=== PATIENT | female | born 1955 | race Caucasian/White ===

== ENCOUNTER → 2017-07-03 11:07 | Outpatient (CLI) | payer OTHER, SELFPAY ==
[2017-07-03 12:12] LABS: Vitamin D,25 Hydroxy 44.2 ng/mL (29.95-100.01)
== END ==
PROVIDERS: Family Provider Internal Medicine; PCP Internal Medicine; Visit Provider Internal Medicine
DX: M81.0 Age-related osteoporosis without current pathological fracture (principal)
CPT/HCPCS: 36415; 82306

== ENCOUNTER → 2017-08-02 08:34 | Outpatient (CLI) | payer OTHER, SELFPAY ==
--- NOTE | 2017-08-02 08:36 | BI_ITS ---
MAMMOGRAPHY - BILATERAL SCREENING REASON FOR EXAM: Female, 61 years old. Routine annual screening examination. PERTINENT HISTORY: NO FAM HX - NO PREV SURG' S- BILAT SKIN TAGS /MOLES MAREKD - RT LARGE SKIN TAG MARKED ON 2NDRTCC of 1 cm the TECHNIQUE: Digital bilateral breast nacho (3D mammographic acquisition) in the CC and MLO projections. 2-D mediolateral oblique (MLO) and craniocaudad (CC) views of both breasts were obtained. CAD: Full Field Digital Mammography with Computer Added Detection was performed. COMPARISON: None. FINDINGS: Breast Composition: The breasts are heterogeneously dense, which may obscure small masses. There is a cluster of microcalcification in the upper outer quadrant of the right for which further evaluation by magnification views and ultrasound would be recommended. No other significant abnormalities are identified. BI/SCREENING MAMM (CAD), BILAT IMPRESSION: Further imaging evaluation recommended, as described above. (E) ASSESSMENT CATEGORY: BIRADS Category 0: Incomplete. Need additional imaging evaluation. A letter regarding these results will be sent to the patient by the facility within 30 days. Approximately 10% of breast cancers are not detected by mammography. A normal mammogram should not delay biopsy of a clinically suspicious abnormality. [id number] Electronically Signed: Sherri Adams MD at 9:22 EDT Tel , Service support ,
--- NOTE | 2017-08-02 08:36 | BD_ITS ---
STUDY: DUAL ENERGY X-RAY ABSORPTIOMETRY / DXA REASON FOR EXAM: Female, 61 years old. Bone density screening in a postmenopausal patient TECHNIQUE: Bone Mineral Density (BMD) measurements of lumbar spine and bilateral hips were obtained. COMPARISON: None. FINDINGS: Lumbar Spine (L1-L4): g/cm2 (0.908) / T-score (-2.3) / Z-score (-0.8) Findings are suggestive of osteopenia with a moderate fracture risk. Left Femur Total: g/cm2 (0.809) / T-score (-1.6) / Z-score (-0.5) Left Femoral Neck: g/cm2 (0.731) / T-score (-2.2) / Z-score (-0.8) Right Femur Total: g/cm2 (0.780) / T-score (-1.8) / Z-score (-0.7) Right Femoral Neck: g/cm2 (0.689) / T-score (-2.5) / Z-score (-1.1) BD/Dexa Bone Density Study IMPRESSION: The patient is considered osteoporotic as outlined below according to World [place] Organization (WHO) criteria with a high fracture risk. Reference Information: The T-score is the number of standard deviations above or below the standard which is normal for young adults at their peak bone mineral density. The World Health Organization (WHO) interprets the T-scores as follows: Above -1 Normal bone density Between -1 and -2.5 Osteopenia Equal to / or below -2.5 Osteoporosis As a practical clinical guideline, osteopenia may be graded as follows: Mild -1 through -1.5 Moderate -1.6 through -2.0 Severe -2.1 through -2.4 The Z-score is the number of standard deviations above or below age-matched controls. A Z-score of less than -1.5 would be considered abnormal. References: 1. NIH Osteoporosis and Related Bone Diseases http://www.osteo.org 2. International Society for Clinical Densitometry http://www.iscd.org 3. National Osteoporosis Foundation http://www.nof.org Electronically Signed: Adriana Castro MD at 9:03 EDT , Service support ,
== END ==
PROVIDERS: Family Provider Internal Medicine; PCP Internal Medicine; Visit Provider Obstetrics & Gynecology
DX: Z12.31 Encounter for screening mammogram for malignant neoplasm of breast (principal); M81.0 Age-related osteoporosis without current pathological fracture; Z78.0 Asymptomatic menopausal state
CPT/HCPCS: 77063; 77067; 77080

== ENCOUNTER → 2017-08-15 14:36 | Outpatient (CLI) | payer OTHER, SELFPAY ==
--- NOTE | 2017-08-15 14:41 | BI_ITS ---
MAMMOGRAPHY - UNILATERAL DIAGNOSTIC: RIGHT BREAST REASON FOR EXAM: Female, 61 years old. Abnormal screening mammogram. Microcalcifications. PERTINENT HISTORY: Non-contributory. TECHNIQUE: Compression magnification views of the right breast were obtained in the mediolateral oblique and craniocaudad views. 90 degree lateral was obtained as well. CAD: Full Field Digital Mammography with Computer Added Detection was performed. COMPARISON: Comparison is made with prior mammogram dated August 02, 2017. FINDINGS: Breast Composition: The breasts are heterogeneously dense, which may obscure small masses. The cluster microcalcification persists in the upper outer quadrant of the breast. A biopsy is recommended. No other significant abnormalities are identified. BI/DIAG MAMM W/CAD, UNILAT IMPRESSION: Persistent cluster microcalcification in the upper outer aspect of the right breast as described. Correlation with the biopsy is recommended. ASSESSMENT CATEGORY: BIRADS Category 4: Suspicious - Biopsy Should Be Considered. A letter regarding these results will be sent to the patient by the facility within 30 days. Approximately 10% of breast cancers are not detected by mammography. A normal mammogram should not delay biopsy of a clinically suspicious abnormality. Electronically Signed: Alexandro Ghosh MD at 8:07 EDT Tel [phone], Service support ,
== END ==
PROVIDERS: Family Provider Internal Medicine; PCP Internal Medicine; Visit Provider Obstetrics & Gynecology
DX: R92.8 Other abnormal and inconclusive findings on diagnostic imaging of breast (principal)
CPT/HCPCS: 77065

== ENCOUNTER → 2017-08-25 07:34 | Outpatient (CLI) | payer OTHER, SELFPAY ==
--- NOTE | 2017-08-25 | BRBX_PTH ---
PATIENT: MIRIAM MARIO LOC: [facility] U#:[id number] AGE/SX: 69/F ROOM: RE08/25/[address]: Dr. Stacy Mendes MD : 1955 BED: DIS: SPEC #: [id number] RECD: 08/25/17 11:28 STATUS: AYDIN WASHINGTONUmesh #: [id number] NOMI: 08/25/17 00:[address]: Stacy Mendes DEPT: SURGICAL PATHOLOGY RECD BY: Gaston Crespo ENTERED: 08/25/17 11:29 SP TYPE: BREAST BX OTHR DR: Dr. Aissatou Hu MD Tissues: Right breast, NOS Procedures: Surgery Specimen Level IV HEADER OPERATION: Right breast stereotactic needle core biopsy PRE-OP DIAGNOSIS: Right UOQ calcifications TISSUE SUBMITTED: Right breast ISCHEMIC TIME: 2 minutes FIXATION TIME: 60 hours MICROSCOPIC DIAGNOSIS Right breast, upper outer quadrant microcalcification, stereotactic needle core biopsy: Fibrocystic changes, adenosis and intraductal hyperplasia without atypia. Frequent microcalcifications. Negative for malignancy. DORYS:mallory 08/28/17 COMMENT Correlation with clinical, radiologic findings and appropriate follow up are necessary. Case has been reviewed in consultation with Dr. Fernandes who concurs with the above diagnosis. IDC:AM MICROSCOPIC DESCRIPTION Slides are reviewed. GROSS DESCRIPTION Received in fixative is one container labeled with the patient's name and designated right breast. The specimen consists of multiple elongated fragments of goel-yellow fibroadipose tissue that in aggregate measure 5 x 3 x 0.3 cm. The entire specimen is submitted in two cassettes. / DORYS:mallory 08/25/17 TC:5 CPT: 87602
--- NOTE | 2017-08-25 08:54 | PCM.OP.BLANK ---
Operative Report Date of Procedure: 08/25/17 rocedure: Stereotactic core biopsy Indications: 61 year-old female with cluster of microcalcifications in the deep lateral portion of the right breast. Risk benefits were discussed the patient and she elected to proceed with stereotactic core biopsy with clip placement Description of procedure: Patient was brought into the mammography suite and laid prone on the stereotactic table. A timeout was completed verifying correct patient, procedure, site, specially, prior to beginning procedure. The right breast was prepped and draped in usual sterile fashion and using local anesthesia was obtained with 1% lidocaine with epi. Patient's right breast was positioned and placed into compression. Initial film showed calcifications are in the center of the compression paddle. 15? views were then taken. The calcifications were localized. The left breast was prepped draped in usual sterile fashion. An 8-gauge mammotome was set up according to the digital coordinates. The tract of the mammotome was anesthetized with local anesthesia and an incision was made with the 11 blade scalpel at the entry site. The mammotome was advanced to the prefire state. Pre-prior films were checked and verified. The mammotome was fired. Post fire films were also checked and verified. Biopsies were taken from 8:00 to 12:00. The specimen was x-rayed and all the calcifications were within the specimen. Mammotome clip was placed at the 12 o'clock position. The mammotome was removed from the breast. An additional films were taken which showed all calcifications were removed and a clip was in place. Pressure was held for hemostasis. Once hemostasis was assured the wound was dressed with Steri-Strips and OpSite. The patient tolerated the procedure well and was discharged from the mammography suite good condition. complications: none
== END ==
PROVIDERS: Family Provider Internal Medicine; PCP Internal Medicine; Visit Provider Surgery
DX: N60.21 Fibroadenosis of right breast (principal); N60.91 Unspecified benign mammary dysplasia of right breast
CPT/HCPCS: 19081; 88305; J7050; A4648

== ENCOUNTER → 2017-12-18 16:20 | Outpatient (CLI) | payer OTHER, SELFPAY ==
[2017-12-18 18:49] LABS: T4 Free Direct 0.99 ng/dL (0.76-1.46)
== END ==
PROVIDERS: Family Provider Internal Medicine; PCP Internal Medicine; Visit Provider Internal Medicine
DX: G47.10 Hypersomnia, unspecified (principal)
CPT/HCPCS: 36415; 84439; 84443

== ENCOUNTER → 2017-12-19 10:38 | Outpatient (CLI) | payer OTHER, SELFPAY ==
[2017-12-19 10:42] LABS: Bacteria 0 SEEN /hpf (None Seen)
[2017-12-19 10:48] LABS: Color, Urine Yellow (Yellow); Glucose, Dipstick Normal (Normal); Ketone-Dipstick Negative (Negative); Leukocyte Esterase-Dipstick 500 /ul (Negative); Nitrite-Dipstick Negative (Negative); Occult Blood-Urine 10 /ul (Negative); Protein-Dipstick 15 mg/dl (Negative); Urine Bilirubin Dipstick Negative (Negative); Urine Clarity Sl. Cloudy (Clear); Urine Urobilinogen Normal (Normal)
[2017-12-19 10:58] LABS: Mucous, Urine RARE /hpf (<or=2+); Red Blood Cells-Urine 0-5 SEEN /hpf (0-5); Squamous Epithelial Cells - UA 0-5 SEEN /hpf (5-10); White Blood Cells 5-10 SEEN /hpf (0-5)
== END ==
PROVIDERS: Family Provider Internal Medicine; PCP Internal Medicine; Visit Provider Internal Medicine
DX: N39.0 Urinary tract infection, site not specified (principal)
CPT/HCPCS: 81001; 87086; 87088

== ENCOUNTER 2017-12-21 20:03 | Emergency (ER) | payer OTHER, SELFPAY ==
[2017-12-21 20:05] VITALS: BP 157/81; PULSE 113; RESP 16; TEMP 36.3; O2SAT 98; BMI 28.0
--- NOTE | 2017-12-21 20:23 | CT_ITS ---
STUDY: CT ABDOMEN AND PELVIS WITHOUT CONTRAST REASON FOR EXAM: Female, 62 years old. No abdominal pain, right flank pain. RADIATION DOSAGE (If Supplied By Facility): CTDIvol = ( 8.76 ) mGy, DLP = ( 426.97 ) mGycm TECHNIQUE: Transaxial images were obtained from the dome of the diaphragm to the symphysis pubis without oral contrast, and without intravenous contrast. Sagittal and coronal images were reconstructed. Individualized dose optimization techniques were used for this CT. COMPARISON: None. FINDINGS: The visualized lung bases are unremarkable. The visualized portions of the heart are within normal limits. Normal liver. There are surgical clips in the gallbladder fossa consistent with a prior cholecystectomy. Normal spleen. Normal pancreas. Normal bilateral adrenal glands. There is a 4 mm nonobstructing stone in the left kidney. The left kidney is otherwise unremarkable. There is no hydronephrosis. There is mild hydronephrosis on the right. There is mild distention of the right ureter. There is a 5 x 5 mm stone in the right distal ureter. The aorta is normal in caliber. There is no free fluid, free air, or organized collection. There is no bowel obstruction or inflammatory change. The appendix is surgically absent. The bladder is partially distended and grossly unremarkable. Normal abdominal wall. Normal osseous structures. CT/Abdomen/Pelvis without Cont IMPRESSION: 1. A 5 mm stone in the right distal ureter, with mild proximal hydroureteronephrosis. 2. Nonobstructing left renal stone. Electronically Signed: Dona Courtney MD at 21:26 EDT Tel , Service support ,
[2017-12-21] MEDS: 0.9% Normal Saline 1,000 ML 250 ML IV (20:41)
[2017-12-21] MEDS: Ketorolac 30 MG/ML Syringe 15 MG IV (20:41)
[2017-12-21] MEDS: Ondansetron 4 MG/2 ML Vial IV (20:41)
[2017-12-21 20:52] LABS: Mucous, Urine 0 SEEN /hpf (<or=2+)
[2017-12-21 20:54] LABS: Glucose, Dipstick Normal (Normal); Ketone-Dipstick Negative (Negative); Leukocyte Esterase-Dipstick 100 /ul (Negative); Nitrite-Dipstick Positive (Negative); Occult Blood-Urine 10 /ul (Negative); Protein-Dipstick 30 mg/dl (Negative); Urine Clarity Sl. Cloudy (Clear); Urine Urobilinogen 12 mg/dl (Normal)
[2017-12-21 20:59] LABS: Color, Urine SEE COMMENT BELOW (Yellow); Urine Bilirubin Dipstick 6 mg/dL (Negative)
[2017-12-21 21:01] LABS: Absolute Lymphocyte Count 2.24 X10^3/ul (0.83-4.51); Absolute Neutrophil Count 4.3 X10^3/uL (2.0-7.7); Basophil# 0.03 X10^3/uL; Basophil% 0.4 % (0-1); Eosinophil# 0.13 X10^3/uL; Eosinophils% 1.8 % (0-5); Hematocrit 40.3 % (37-47); Hemoglobin 13.1 g/dl (12.0-15.0); Lymphocyte # 2.24 X10^3/ul (4.0); Lymphocyte % 30.7 % (19-41); Mean Corp Hgb Conc 32.5 g/gl (32-36); Mean Corpuscular Hgb 29.9 pg (27.0-32.0); Mean Platelet Vol. 10.3 fl (6.2-12.0); Monocyte# 0.55 X10^3/uL; Monocyte% 7.5 % (0-10); Neutrophil # 4.34 X10^3/uL (2.7-7.7); Neutrophil % 59.5 % (47-70); POSITIVE COUNT NO; POSITIVE DIFFERENTIAL NO; POSITIVE MORPHOLOGY NO; Platelet Count 311 K/mm3 (150-450); RBC Distribution Width CV 13.8 % (11.6-14.6); RBC Distribution Width SD 46.4 fl (35.1-43.9); Red Blood Count 4.38 M/mm3 (4.2-5.4); White Blood Count 7.3 K/mm3 (4.4-11.0)
[2017-12-21 21:01] LABS: Bacteria RARE /hpf (None Seen); Red Blood Cells-Urine 0-5 SEEN /hpf (0-5); Squamous Epithelial Cells - UA 0-5 SEEN /hpf (5-10); White Blood Cells 10-25 SEEN /hpf (0-5)
[2017-12-21 21:11] LABS: Anion Gap 10 (5-15); BUN 18 mg/dL (7-18); BUN/Creat Ratio 18.2 RATIO (10-20); Calcium,Total 9.3 mg/dL (8.5-10.1); Chloride 104 mmol/L (98-107); Creatinine, Serum 0.99 mg/dL (0.55-1.02); EST Glomerular Filtration Rate 60 mL/min (>60); Est Glom Filt Rate - Afr Amer 73 mL/min (>60); Glucose 115 mg/dL (74-106); Potassium 2.5 mmol/L (3.5-5.1); Sodium Level 142 mmol/L (136-145)
--- NOTE | 2017-12-21 21:11 | ED.RN ---
DR JOHNSON AWARE OF k+ 2.5.
--- NOTE | 2017-12-21 22:49 | ED.DCSUM_ITS ---
- ER Visit Summary Date of Service: 12/21/17 Chief Complaint: Right flank pain, abdominal pain and pain in the perineum History of Present Illness: The patient is a 62 F who presents with waxing and waning pain right side of the abdomen, flank and perineum past several days. Patient states she was placed on Augmentin by her PCP and treated with Flomax. She denies fever, chills night sweats. She denies any ocular, visual auditory symptoms. She denies any cardiovascular respiratory symptoms. She denies skin lesions or rash. She denies any hematologic or allergic symptoms. Physical Examination: On exam patient appears uncomfortable. Vital signs noted and remarkable and elevated blood pressure 137/81. Heart rate 113. She is not febrile. HEENT exam is unremarkable. Insert cardiopulmonary exam abdomen soft nontender. Bowel sounds present normal. There is no CVA tenderness noted. There is no evidence of inguinal hernia or inguinal lymphadenopathy. Lower extremity exam is normal. Neuro exam is nonfocal. Test Results: CT of the abdomen reveals a 5 mm right UVJ is stone with hydroureter and hydronephrosis. There is a left renal stone noted as well. White count normal. Electro panels marked for a potassium of 2.5. Urinalysis is positive for leukoesterase nitrites and blood of 110 respectively. There are 10-25 WBCs 0-5 RBCs with rare bacteria. Emergency Department Course and Treatment: CBC, BMP and UA were obtained as well as CT of the abdomen. Patient was treated with 15 mg of Toradol IV push and 4 mg of Zofran IV push. She was reassessed at 20-35. She is pain-free. Treatment Plan: Anti-inflammatory and opiate analgesia Disposition: Discharged to home Impression: Obstructing right UVJ stone with hydroureter and nephrosis Pyuria Hypokalemia History of hypertension This note was generated with [employer] dictation software. It may contain incorrect words, spelling, and punctuation that were not noted in review of the chart prior to signing ED Disposition - Plan for ED Patient: Disposition: Home or Assisted Living Chief Complaint: Abd Pain Instructions: ED Stone Renal W Colic, ED Potassium Deficiency, ED Diet High Potassium Prescriptions: Oxycodone HCl/Acetaminophen [Percocet 5/325] 1 tab PO Q6H PRN PRN 5 Days #20 tab PRN Reason: Pain Potassium Chl Soln 20 meq PO DAILY #120 udc Naproxen [Naprosyn] 500 mg PO BID #14 tab Referrals: Aissatou Hu MD [Primary Care Provider] - 5-7 Days Additional Instructions: Continue to take Augmentin until gone. You may discontinue the Flomax. Contact your doctor for repeat potassium in 1 week Take potassium supplement as instructed.
[2017-12-21 23:10] VITALS: BP 142/98; PULSE 84; PULSE 87; RESP 16; O2SAT 97; O2SAT 98
--- NOTE | 2017-12-22 18:00 | ED.RN ---
Pt called with request to change rx from liquid potassium to tablets. Dr Rosario changed rx.
== END 2017-12-21 23:12 | disposition home or self-care (01) ==
PROVIDERS: Emergency Provider Emergency Medicine; Family Provider Internal Medicine; PCP Internal Medicine
DX: N13.6 Pyonephrosis (principal); E87.6 Hypokalemia; I10 Essential (primary) hypertension; F32.9 Major depressive disorder, single episode, unspecified; Z79.899 Other long term (current) drug therapy; Z87.442 Personal history of urinary calculi
CPT/HCPCS: 74176; 80048; 81001; 85025; 96361; 96374; 96375; 99283; J7030; J2405

== ENCOUNTER → 2017-12-29 10:44 | Outpatient (CLI) | payer OTHER, SELFPAY ==
--- NOTE | 2017-12-29 11:22 | CT_ITS ---
STUDY: CT ABDOMEN AND PELVIS WITHOUT CONTRAST REASON FOR EXAM: Female, 62 years old. Right groin pain. History of stones. RADIATION DOSAGE (If Supplied By Facility): CTDIvol = ( 9.53 ) mGy, DLP = ( 466.65 ) mGycm TECHNIQUE: Transaxial images were obtained from the dome of the diaphragm to the symphysis pubis without oral contrast, and without intravenous contrast. Sagittal and coronal images were reconstructed. Individualized dose optimization techniques were used for this CT. COMPARISON: Comparison is made with prior study dated December 21, 2017. FINDINGS: The visualized lung bases are unremarkable. The visualized portions of the heart are within normal limits. Normal liver. There are surgical clips in the gallbladder fossa consistent with a prior cholecystectomy. Normal spleen. Normal pancreas. Normal bilateral adrenal glands. Punctate calcification in the posterior mid pole calyx of the right kidney. The previously seen right hydronephrosis has cleared. The previously seen 4 mm calculus in the distal portion of the left ureter is not present at this time. Nonobstructive calculus in the upper pole calyx of the left kidney. There is a small hiatal hernia. Normal small intestine. Normal colon. Prior appendectomy. There is scattered atherosclerotic calcification of the abdominal aorta, without a demonstrated aneurysm. Normal inferior vena cava. Normal retroperitoneum. Normal urinary bladder. There is absence of the uterus consistent with a prior hysterectomy. Normal abdominal wall. Disc space narrowing and degeneration at the L5-S1 level. CT/Abdomen/Pelvis without Cont IMPRESSION: No evidence of right-sided hydronephrosis. The previously seen 4 mm calculus in the distal portion of the right ureter is not seen at this. Electronically Signed: Alexandro Ghosh MD at 12:31 EDT Tel [phone], Service support ,
[2017-12-29 12:04] LABS: Anion Gap 11 (5-15); BUN 27 mg/dL (7-18); BUN/Creat Ratio 28.8 RATIO (10-20); Calcium,Total 9.3 mg/dL (8.5-10.1); Chloride 103 mmol/L (98-107); Creatinine, Serum 0.94 mg/dL (0.55-1.02); EST Glomerular Filtration Rate 64 mL/min (>60); Est Glom Filt Rate - Afr Amer 77 mL/min (>60); Glucose 103 mg/dL (74-106); Potassium 2.8 mmol/L (3.5-5.1); Sodium Level 141 mmol/L (136-145)
== END ==
PROVIDERS: Nurse Practitioner Family; Family Provider Internal Medicine; PCP Internal Medicine; Visit Provider Urology
DX: N20.0 Calculus of kidney (principal); E87.6 Hypokalemia
CPT/HCPCS: 74176; 80048

== ENCOUNTER → 2018-01-10 15:48 | Outpatient (CLI) | payer OTHER, SELFPAY ==
[2018-01-10 17:42] LABS: Anion Gap 6 (5-15); BUN 18 mg/dL (7-18); BUN/Creat Ratio 18.6 RATIO (10-20); Calcium,Total 9.5 mg/dL (8.5-10.1); Chloride 105 mmol/L (98-107); Creatinine, Serum 0.97 mg/dL (0.55-1.02); EST Glomerular Filtration Rate 62 mL/min (>60); Est Glom Filt Rate - Afr Amer 75 mL/min (>60); Glucose 100 mg/dL (74-106); Potassium 3.6 mmol/L (3.5-5.1); Sodium Level 141 mmol/L (136-145)
== END ==
PROVIDERS: Family Provider Internal Medicine; PCP Internal Medicine; Visit Provider Nurse Practitioner Family
DX: E87.6 Hypokalemia (principal)
CPT/HCPCS: 36415; 80048

== ENCOUNTER → 2018-01-30 11:14 | Outpatient (CLI) | payer OTHER, SELFPAY ==
[2018-01-30 14:14] LABS: Anion Gap 8 (5-15); BUN 20 mg/dL (7-18); BUN/Creat Ratio 23.3 RATIO (10-20); Calcium,Total 9.5 mg/dL (8.5-10.1); Chloride 105 mmol/L (98-107); Creatinine, Serum 0.86 mg/dL (0.55-1.02); EST Glomerular Filtration Rate 71 mL/min (>60); Est Glom Filt Rate - Afr Amer 85 mL/min (>60); Glucose 88 mg/dL (74-106); Potassium 3.5 mmol/L (3.5-5.1); Sodium Level 142 mmol/L (136-145)
== END ==
PROVIDERS: Family Provider Internal Medicine; PCP Internal Medicine; Referring Provider Nurse Practitioner Family; Visit Provider Nurse Practitioner Family
DX: E87.6 Hypokalemia (principal)
CPT/HCPCS: 36415; 80048

== ENCOUNTER → 2018-01-31 20:35 | Outpatient (CLI) | payer OTHER, SELFPAY | PROVIDERS: Family Provider Internal Medicine; PCP Internal Medicine; Visit Provider Internal Medicine | DX: G47.10 Hypersomnia, unspecified (principal) | CPT/HCPCS: 95810 ==

== ENCOUNTER → 2018-02-27 07:26 | Outpatient (CLI) | payer OTHER, SELFPAY ==
[2018-02-14 08:41] VITALS: BMI 28.1
--- NOTE | 2018-02-27 12:33 | PFT ---
INTRODUCTION: The patient is a 62-year-old female that presents for pulmonary function testing secondary to a diagnosis of dyspnea. Respiratory therapy reports good patient effort. Bronchodilators were used during testing. INTERPRETATION: Forced expiration spirometry demonstrates no evidence of a large airways obstructive ventilatory defect. There was no significant response to aerosolized bronchodilators. Spirograms are of good quality and plateau normally. Body plethysmography was performed and reveals lung volumes to be within normal limits. Diffusing capacity by single breath CO was also within normal limits at 85% of predicted. IMPRESSION: Grossly normal pulmonary function testing.
== END ==
PROVIDERS: Family Provider Internal Medicine; PCP Internal Medicine; Referring Provider Nurse Practitioner Acute Care; Visit Provider Nurse Practitioner Acute Care
DX: R06.09 Other forms of dyspnea (principal)
CPT/HCPCS: 94060; 94726; 94729

== ENCOUNTER → 2018-03-14 20:25 | Outpatient (CLI) | payer OTHER, SELFPAY | PROVIDERS: Family Provider Internal Medicine; PCP Internal Medicine; Visit Provider Nurse Practitioner Acute Care | DX: G47.33 Obstructive sleep apnea (adult) (pediatric) (principal) | CPT/HCPCS: 95811 ==

== ENCOUNTER → 2018-09-11 14:17 | Outpatient (CLI) | payer OTHER, SELFPAY ==
[2018-09-10 16:05] VITALS: BMI 29.8
[2018-09-11 14:50] LABS: Bacteria 0 SEEN /hpf (None Seen); Mucous, Urine 0 SEEN /hpf (<or=2+)
[2018-09-11 14:58] LABS: Color, Urine Yellow (Yellow); Glucose, Dipstick Normal (Normal); Ketone-Dipstick Negative (Negative); Leukocyte Esterase-Dipstick 500 /ul (Negative); Nitrite-Dipstick Negative (Negative); Occult Blood-Urine 250 /ul (Negative); Protein-Dipstick 15 mg/dl (Negative); Specific Gravity, Urine 1.005 (1.002-1.030); Urine Bilirubin Dipstick Negative (Negative); Urine Clarity Sl. Cloudy (Clear); Urine Urobilinogen Normal (Normal)
[2018-09-11 15:03] LABS: Red Blood Cells-Urine 25-50 SEEN /hpf (0-5)
[2018-09-11 15:04] LABS: Squamous Epithelial Cells - UA 0-5 SEEN /hpf (5-10); White Blood Cells 25-50 SEEN /hpf (0-5)
== END ==
PROVIDERS: Family Provider Internal Medicine; PCP Internal Medicine; Referring Provider Physician Assistant Surgical; Visit Provider Physician Assistant Surgical
DX: R30.0 Dysuria (principal)
CPT/HCPCS: 81001; 87086; 87088; 87186

== ENCOUNTER → 2018-09-14 10:12 | Outpatient (CLI) | payer OTHER, SELFPAY ==
[2018-09-14 09:47] VITALS: BMI 29.8
[2018-09-14 13:10] LABS: Anion Gap 5 (5-15); BUN 16 mg/dL (7-18); BUN/Creat Ratio 18.5 RATIO (10-20); Calcium,Total 9.2 mg/dL (8.5-10.1); Chloride 107 mmol/L (98-107); Creatinine, Serum 0.86 mg/dL (0.55-1.02); EST Glomerular Filtration Rate 70 mL/min (>60); Est Glom Filt Rate - Afr Amer 85 mL/min (>60); Glucose 104 mg/dL (74-106); Potassium 3.3 mmol/L (3.5-5.1); Sodium Level 141 mmol/L (136-145)
== END ==
PROVIDERS: Family Provider Internal Medicine; PCP Internal Medicine; Referring Provider Internal Medicine; Visit Provider Internal Medicine
DX: E87.6 Hypokalemia (principal); J02.9 Acute pharyngitis, unspecified
CPT/HCPCS: 36415; 80048; 87081

== ENCOUNTER → 2018-11-22 12:18 | Outpatient (CLI) | payer OTHER, SELFPAY ==
[2018-10-16 14:04] VITALS: BMI 29.4
[2018-11-22 14:37] LABS: Anion Gap 6 (5-15); BUN 19 mg/dL (7-18); BUN/Creat Ratio 23.2 RATIO (10-20); Calcium,Total 9.4 mg/dL (8.5-10.1); Chloride 108 mmol/L (98-107); Creatinine, Serum 0.82 mg/dL (0.55-1.02); EST Glomerular Filtration Rate 74 mL/min (>60); Est Glom Filt Rate - Afr Amer 90 mL/min (>60); Glucose 87 mg/dL (74-106); Potassium 4.1 mmol/L (3.5-5.1); Sodium Level 141 mmol/L (136-145)
== END ==
PROVIDERS: Family Provider Internal Medicine; PCP Internal Medicine; Referring Provider Internal Medicine; Visit Provider Internal Medicine
DX: E87.6 Hypokalemia (principal); I10 Essential (primary) hypertension
CPT/HCPCS: 36415; 80048

== ENCOUNTER → 2019-02-12 07:47 | Outpatient (CLI) | payer MEDICARE, SELFPAY ==
[2018-11-29 09:11] VITALS: BMI 29.4
--- NOTE | 2019-02-12 07:59 | BI_ITS ---
MAMMOGRAPHY - BILATERAL SCREENING REASON FOR EXAM: Female, 63 years old. Routine annual screening examination. PERTINENT HISTORY: Non-contributory. Prior right stereotactic breast biopsy. TECHNIQUE: Digital bilateral breast kiera (3D mammographic acquisition) in the CC and MLO projections. 2-D mediolateral oblique (MLO) and craniocaudad (CC) views of both breasts were obtained. CAD: Full Field Digital Mammography with Computer Added Detection was performed. COMPARISON: Comparison is made with prior study dated August 02, 2017 and August 15, 2017. FINDINGS: Breast Composition: The breasts are heterogeneously dense, which may obscure small masses. There are no dominant masses or suspicious calcifications. The previously seen calcifications in the upper outer quadrant of the right breast have been biopsied. A tissue clip marker is seen at this site. The number of calcifications have decreased. Stable benign-appearing bilateral axillary lymph nodes. No other significant abnormalities are identified. BI/SCREEN MAMM (CAD) W/KIERA BILAT IMPRESSION: Status post stereotactic biopsy of the cluster of microcalcification in the upper lateral aspect of the right breast as described. Yearly follow-up mammogram recommended. (A) ASSESSMENT CATEGORY: BIRADS Category 2: Benign. A letter regarding these results will be sent to the patient by the facility within 30 days. Approximately 10% of breast cancers are not detected by mammography. A normal mammogram should not delay biopsy of a clinically suspicious abnormality. [id number] Electronically Signed: Alexandro Ghosh, at 9:25 EST , Service support ,
== END ==
PROVIDERS: Family Provider Internal Medicine; PCP Internal Medicine; Referring Provider Nurse Practitioner Women's Health; Visit Provider Nurse Practitioner Women's Health
DX: Z12.31 Encounter for screening mammogram for malignant neoplasm of breast (principal)
CPT/HCPCS: 77063; 77067

== ENCOUNTER → 2019-02-26 10:17 | Outpatient (CLI) | payer MEDICARE, OTHER, SELFPAY ==
[2019-02-26 09:29] VITALS: BMI 29.4
[2019-02-26 12:48] LABS: Anion Gap 6 (5-15); BUN 17 mg/dL (7-18); BUN/Creat Ratio 20.7 RATIO (10-20); Calcium,Total 9.5 mg/dL (8.5-10.1); Chloride 107 mmol/L (98-107); Creatinine, Serum 0.82 mg/dL (0.55-1.02); EST Glomerular Filtration Rate 74 mL/min (>60); Est Glom Filt Rate - Afr Amer 90 mL/min (>60); Glucose 97 mg/dL (74-106); Potassium 3.9 mmol/L (3.5-5.1); Sodium Level 140 mmol/L (136-145)
== END ==
PROVIDERS: Nurse Practitioner Family; Family Provider Internal Medicine; PCP Internal Medicine; Visit Provider Internal Medicine
DX: I10 Essential (primary) hypertension (principal); E66.3 Overweight
CPT/HCPCS: 36415; 80048; 84443

== ENCOUNTER → 2019-08-09 16:15 | Outpatient (CLI) | payer MEDICARE, OTHER, SELFPAY ==
[2019-08-03 11:38] VITALS: BMI 29.4
[2019-08-09 16:21] LABS: Bacteria 0 SEEN /hpf (None Seen); Mucous, Urine 0 SEEN /hpf (<or=2+); Red Blood Cells-Urine 0 SEEN /hpf (0-5)
[2019-08-09 18:26] LABS: Color, Urine Yellow (Yellow); Glucose, Dipstick Normal (Normal); Ketone-Dipstick 5 mg/dl (Negative); Leukocyte Esterase-Dipstick 25 /ul (Negative); Nitrite-Dipstick Positive (Negative); Occult Blood-Urine Negative /ul (Negative); Protein-Dipstick Negative (Negative); Specific Gravity, Urine 1.015 (1.002-1.030); Urine Urobilinogen 4 mg/dl (Normal)
[2019-08-09 18:38] LABS: Urine Bilirubin Dipstick 3 mg/dL (Negative); Urine Clarity Clear (Clear)
[2019-08-09 18:43] LABS: Renal Epithelial Cells 0-5 SEEN /hpf (0-5); Squamous Epithelial Cells - UA 0-5 SEEN /hpf (5-10); White Blood Cells 0-5 SEEN /hpf (0-5)
== END ==
PROVIDERS: PCP Internal Medicine; Referring Provider Nurse Practitioner Family; Visit Provider Nurse Practitioner Family
DX: N30.00 Acute cystitis without hematuria (principal)
CPT/HCPCS: 81001; 87086

== ENCOUNTER → 2019-08-23 12:34 | Outpatient (CLI) | payer MEDICARE, OTHER, SELFPAY ==
[2019-08-03 11:38] VITALS: BMI 29.4
[2019-08-23 12:39] LABS: Bacteria 0 SEEN /hpf (None Seen)
[2019-08-23 15:55] LABS: Color, Urine Yellow (Yellow); Glucose, Dipstick Normal (Normal); Ketone-Dipstick 5 mg/dl (Negative); Leukocyte Esterase-Dipstick 25 /ul (Negative); Nitrite-Dipstick Negative (Negative); Occult Blood-Urine 10 /ul (Negative); Protein-Dipstick 15 mg/dl (Negative); Urine Bilirubin Dipstick Negative (Negative); Urine Clarity Sl. Cloudy (Clear); Urine Urobilinogen 1 mg/dl (Normal)
[2019-08-23 17:15] LABS: Mucous, Urine RARE /hpf (<or=2+); Red Blood Cells-Urine 0-5 SEEN /hpf (0-5); White Blood Cells 0-5 SEEN /hpf (0-5)
[2019-08-23 17:16] LABS: Calcium Oxalate Crystals Ur RARE /hpf (<or=2+); Squamous Epithelial Cells - UA 0-5 SEEN /hpf (5-10)
== END ==
PROVIDERS: PCP Internal Medicine; Referring Provider Nurse Practitioner Family; Visit Provider Nurse Practitioner Family
DX: R30.0 Dysuria (principal)
CPT/HCPCS: 81001; 87086; 87088; 87186

== ENCOUNTER → 2019-11-20 16:59 | Outpatient (CLI) | payer MEDICARE, OTHER, SELFPAY ==
[2019-11-20 16:16] VITALS: BMI 29.4
--- NOTE | 2019-11-20 17:01 | RAD_ITS ---
STUDY: X-RAY - LEFT ANKLE REASON FOR EXAM: Female, 64 years old. LEFT ANKLE INJURY ABOUT 2 WEEKS AGO. PATIENT STATES STILL HAVING PAIN AND SWELLING LEFT LATERAL ANKLE INTO LATERAL SIDE OF LEFT FOOT. TECHNIQUE: 3 view(s) of the ankle. COMPARISON: None. FINDINGS: Normal visualized distal tibia and fibula. Normal medial and lateral malleoli. Normal tibiotalar articulation and ankle mortise. Normal visualized talus and calcaneus. The visualized subtalar, talonavicular, calcaneocuboid and tarsal articulations are normal. Lateral soft tissue swelling. RAD/Ankle min 3 Views IMPRESSION: Lateral soft tissue swelling with no acute underlying bone or joint abnormality. Negative for fracture. Electronically Signed: Sue Hunt MD at 20:45 EDT , Service support ,
== END ==
PROVIDERS: PCP Internal Medicine; Referring Provider Nurse Practitioner Family; Visit Provider Nurse Practitioner Family
DX: M25.572 Pain in left ankle and joints of left foot (principal)
CPT/HCPCS: 73610

== ENCOUNTER → 2019-11-25 | Outpatient (CLI) | payer MEDICARE, OTHER, SELFPAY ==
[2019-11-25 09:29] VITALS: BMI 29.4
== END | disposition home or self-care (01) ==
LOC: LABSPEC 12:38
PROVIDERS: PCP Internal Medicine; Referring Provider Physician Assistant; Visit Provider Physician Assistant
DX: J02.9 Acute pharyngitis, unspecified (principal)
CPT/HCPCS: 87070

== ENCOUNTER → 2020-08-04 15:21 | Outpatient (CLI) | payer MEDICARE, OTHER, SELFPAY ==
[2019-11-25 09:29] VITALS: BMI 29.4
--- NOTE | 2020-08-04 15:25 | BI_ITS ---
MAMMOGRAPHY - BILATERAL SCREENING REASON FOR EXAM: Female, 64 years old. Routine annual screening examination. PERTINENT HISTORY: Non-contributory. History of prior right stereotactic breast biopsies. TECHNIQUE: Digital bilateral breast ikera (3D mammographic acquisition) in the CC and MLO projections. 2-D mediolateral oblique (MLO) and craniocaudad (CC) views of both breasts were obtained. CAD: Full Field Digital Mammography with Computer Added Detection was performed. COMPARISON: Comparison is made with prior study dated 02/12/2019 and 08/02/2017. FINDINGS: Breast Composition: The breasts are heterogeneously dense, which may obscure small masses. There are no dominant masses or suspicious calcifications. A tissue clip marker is seen in the upper lateral aspect of the right breast. This is unchanged. Stable small bilateral axillary lymph nodes. No other significant abnormalities are identified. There has been no significant change since the prior study. BI/SCRN MAMM (CAD)W/KIERA BILAT IMPRESSION: Stable bilateral screening mammogram. Yearly follow-up mammogram recommended. (A) ASSESSMENT CATEGORY: BIRADS Category 2: Benign. A letter regarding these results will be sent to the patient by the facility within 30 days. Approximately 10% of breast cancers are not detected by mammography. A normal mammogram should not delay biopsy of a clinically suspicious abnormality. [id number] Electronically Signed: Alexandro Ghosh MD at 8:27 EDT , Service support ,
--- NOTE | 2020-08-04 15:30 | BD_ITS ---
STUDY: DUAL ENERGY X-RAY ABSORPTIOMETRY / DXA REASON FOR EXAM: Female, 64 years old. M81.0 - Age-related osteoporosis without current pathological fracture TECHNIQUE: Bone Mineral Density (BMD) measurements of lumbar spine and bilateral hips were obtained. COMPARISON: Comparison is made with prior study dated 08/02/2017. FINDINGS: Lumbar Spine (L1-L4): g/cm2 (0.961) / T-score (-2.0) / Z-score (-0.4) Findings are suggestive of osteopenia with a moderate fracture risk. Left Femur Total: g/cm2 (0.806) / T-score (-1.6) / Z-score (-0.3) Left Femoral Neck: g/cm2 (0.762) / T-score (-2.0) / Z-score (-0.5) Right Femur Total: g/cm2 (0.785) / T-score (-1.8) / Z-score (-0.5) Right Femoral Neck: g/cm2 (0.699) / T-score (-2.4) / Z-score (-0.9) The T-Scores on the most recent prior examination were: Lumbar Spine (L1-L4): There has been improvement of bone density since the previous examination. Left Femur Total: which represents a worsening of 0.4%. Right Femur Total: which represents an improvement of 0.6%. BD/Dexa Bone Density Study IMPRESSION: The patient is considered osteopenic as outlined below according to World [place] Organization (WHO) criteria with a high fracture risk. There has been improvement of bone density since the previous examination. Reference Information: The T-score is the number of standard deviations above or below the standard which is normal for young adults at their peak bone mineral density. The World Health Organization (WHO) interprets the T-scores as follows: Above -1 Normal bone density Between -1 and -2.5 Osteopenia Equal to / or below -2.5 Osteoporosis As a practical clinical guideline, osteopenia may be graded as follows: Mild -1 through -1.5 Moderate -1.6 through -2.0 Severe -2.1 through -2.4 The Z-score is the number of standard deviations above or below age-matched controls. A Z-score of less than -1.5 would be considered abnormal. References: 1. NIH Osteoporosis and Related Bone Diseases www osteo.org 2. International Society for Clinical Densitometry www iscd.org 3. National Osteoporosis Foundation www nof.org Electronically Signed: Alexandro Ghosh MD at 10:37 EDT , Service support ,
== END ==
PROVIDERS: PCP Internal Medicine; Referring Provider Obstetrics & Gynecology; Visit Provider Obstetrics & Gynecology
DX: Z12.31 Encounter for screening mammogram for malignant neoplasm of breast (principal); M81.0 Age-related osteoporosis without current pathological fracture
CPT/HCPCS: 77063; 77067; 77080

== ENCOUNTER 2021-07-06 15:12 | Outpatient (CLI) | payer MEDICARE, OTHER, SELFPAY ==
[2021-07-06 16:33] LABS: Absolute Lymphocyte Count 1.76 X10^3/uL (0.83-4.51); Absolute Neutrophil Count 4.4 X10^3/uL (2.0-7.7); Basophil# 0.05 X10^3/uL; Basophil% 0.7 % (0-1); Eosinophil# 0.12 X10^3/uL; Eosinophils% 1.7 % (0-5); Hematocrit 41.7 % (37-47); Hemoglobin 13.6 g/dL (12.0-15.0); Lymphocyte # 1.76 X10^3/ul (0.83-4.51); Lymphocyte % 24.9 % (19-41); Mean Corp Hgb Conc 32.6 g/dL (32-36); Mean Corpuscular Hgb 30.2 pg (27.0-32.0); Mean Corpuscular Volume 92.7 fL (81-99); Mean Platelet Vol. 10.8 fl (6.2-12.0); Monocyte# 0.69 X10^3/uL; Monocyte% 9.8 % (0-10); NRBC Flagged by Analyzer 0 % (0-5); Neutrophil # 4.43 X10^3/uL (2.7-7.7); Neutrophil % 62.6 % (47-70); Platelet Count 367 K/mm3 (150-450); RBC Distribution Width CV 13.8 % (11.6-14.6); RBC Distribution Width SD 47.1 fl (35.1-43.9); White Blood Count 7.1 K/mm3 (4.4-11.0)
[2021-07-06 16:47] LABS: ALB/GLOB Ratio 1.1 RATIO (0.9-2.4); AST(SGOT) 30 U/L (15-37); Alanine Aminotransfer ALT/SGPT 41 U/L (13-56); Albumin, Serum 3.9 g/dL (3.2-5.0); Alkaline Phosphatase 111 U/L (45-117); Anion Gap 5 (5-15); BUN 25 mg/dL (7-18); BUN/Creat Ratio 18.4 RATIO (10-20); Calcium,Total 9.2 mg/dL (8.5-10.1); Chloride 107 mmol/L (98-107); Cholesterol 134 mg/dL (200); Creatinine, Serum 1.36 mg/dL (0.55-1.02); EST Glomerular Filtration Rate 41 mL/min (>60); Est Glom Filt Rate - Afr Amer 50 mL/min (>60); Globulin 3.4 g/dL (2.2-4.2); Glucose 133 mg/dL (74-106); High Density Lipoprotein 55 mg/dL; Protein, Total 7.3 g/dL (6.4-8.2); Sodium Level 143 mmol/L (136-145); Triglycerides 158 mg/dL; Very Low Density Lipoprotein 32 mg/dL (5-40)
== END 2021-07-06 23:59 | disposition home or self-care (01) ==
LOC: BIMLAB 15:13
PROVIDERS: PCP Internal Medicine; Referring Provider Internal Medicine; Visit Provider Internal Medicine
DX: I10 Essential (primary) hypertension (principal)
CPT/HCPCS: 36415; 80053; 80061; 85025

== ENCOUNTER 2021-07-13 11:06 | Outpatient (CLI) | payer MEDICARE, OTHER, SELFPAY ==
[2021-07-13 13:08] LABS: Anion Gap 5 (5-15); BUN 16 mg/dL (7-18); BUN/Creat Ratio 16.5 RATIO (10-20); Calcium,Total 9.4 mg/dL (8.5-10.1); Chloride 108 mmol/L (98-107); Creatinine, Serum 0.97 mg/dL (0.55-1.02); EST Glomerular Filtration Rate 61 mL/min (>60); Est Glom Filt Rate - Afr Amer 73 mL/min (>60); Glucose 114 mg/dL (74-106); Potassium 3.8 mmol/L (3.5-5.1); Sodium Level 139 mmol/L (136-145)
== END 2021-07-13 23:59 | disposition home or self-care (01) ==
LOC: MTLAB 11:08
PROVIDERS: PCP Internal Medicine; Referring Provider Internal Medicine; Visit Provider Internal Medicine
DX: N17.9 Acute kidney failure, unspecified (principal)
CPT/HCPCS: 36415; 80048

== ENCOUNTER 2021-07-16 13:00 | Outpatient (CLI) | payer MEDICARE, OTHER, SELFPAY ==
--- NOTE | 2021-07-16 15:12 | SP.MBSS_ITS ---
Modified Barium Swallow - Patient Information Study Date: 07/16/21 Study Time: 13:00 Direct Billable Minutes: 65 Total Minutes procedure & reportin Diagnosis: Dysphagia, unspecified (R13.10) Referring Physician: Aissatou Hu Reason for Referral: Objectively assess swallow function, risk for aspiration, and determine recommendations for least restrictive diet textures and compensatory strategies to improve safety of swallow. Medical History: The patient is a 65 year old female with PMH including LOIS, HTN, difficulty swallowing, gallstones, and high cholesterol (SEE EMR for full PMH). The patient was referred for MBS study from her PCP as she has had increased difficulty swallowing in the past couple of months characterized by food feeling caught in the base of her throat, as well as food caught at the level of her chest. She reports at times she will wake up coughing on bitter-tasting regurgitated contents in the middle of the night. She denies history of reflux. Per patient report, she was determined to have dehydration at her doctor's visit last week. Current Diet Ordered: Regular Textures / Thin Liquids Dentition: WNL Mental Status: WNL Respiratory Status: Oxygenating on Room Air - Penetration-Aspiration Scale Penetration-Aspiration Scale: OBJECTIVE ASSESSMENT OF SWALLOW FUNCTION (QUANTITATIVE ? PER TRIAL): PENETRATION / ASPIRATION SCALE (BRADY): 1 = does not enter airway 2 = enters airway/above vocal folds/ejected 3 = enters airway/above vocal folds/not ejected 4 = enters airway/contacts vocal folds/ejected 5 = enters airway/contacts vocal folds/not ejected 6 = enters airway/below vocal folds/ejected 7 = enters airway/below vocal folds/not ejected despite effort 8 = enters airway/below vocal folds/no effort VIDEOFLOROSCOPIC SCALE SCORE (BRADY): Grade I = aspiration of material that has penetrated into the laryngeal vestibule, intact cough reflex Grade II = aspiration < 10 % of the bolus, intact cough reflex Grade III = aspiration of < 10 % of the bolus, reduced cough reflex or aspiration of > 10 % of the bolus, intact cough reflex Grade IV = aspiration of > 10 % of the bolus, reduced cough reflex - Penetration-Aspiration Scale Score Thin Liquid via teaspoon Result: 1= does not enter airway Thin Liquid via teaspoon Trial 2 Result: 1= does not enter airway Thin Liquid via small single sip from cup Result: 1= does not enter airway Thin Liquid via sequential sips from cup Result: 1= does not enter airway [place] Thick Liquid via small single sip from cup Result: 1= does not enter airway Honey Thick Liquid via small single sip from cup Result: 1= does not enter airway Pudding via teaspoon with esophageal screen Result: 1= does not enter airway Comment: Retention in mid esophagus. Cookie with esophageal screen Result: 1= does not enter airway Comment: Retention in mid esophagus with slow emptying to the stomach. Thin Liquid via single sip from straw Result: 1= does not enter airway Thin Liquid via sequential sips from straw Result: 1= does not enter airway Barium Tablet with water Result: 1= does not enter airway Comment: Good pharyngoesophageal clearance. - Oral Phase Labial Seal: No Labial Escape Tongue Control During Bolus Hold: Posterior escape of less than half of bolus Bolus Preparation/Mastication: Timely and efficient chewing and mashing Bolus Transport/Lingual Motion: Delayed initiation of tongue motion Oral Residue: Residue collection on oral structures - Piecemeal deglutition of cookie - Pharyngeal Phase Initiation of Pharyngeal Swallow: Bolus head at posterior laryngeal surgace of epiglottis Soft Palate Elevation: Trace column of contrast/air between soft palate and pharyngeal wall Laryngeal Elevation: Partial superior movement thyroid cart/partial apprx aryt- epig petiole Anterior Hyoid Excursion: Complete anterior movement Epiglottic Movement: Complete inversion Laryngeal Vestibule Closure at Height of Swallow: Complete; no air/contrast in laryngeal vestibule Pharyngeal Stripping Wave: Present - complete Pharyngoesophageal Segment Opening: Complete distension and complete duration; no obstruction of flow Tongue Base Retraction: Trace column of contrast between tongue base & post. pharyngeal wall Pharyngeal Residue: Trace residue within or on pharyngeal structures - Esophageal Phase Esophageal Clearance: Esophageal retention - Treatment Strategies Effects of treatment strategies attemped:: N/A - Diagnosis/Impression Diagnosis: Swallow function grossly WNL Impression: The patient demonstrates mild posterior loss of thin liquid bolus prior to swallow onset. She required piecemeal deglutition of cookie bolus; however, she independently cleared oral residue with independent use of second swallow. She presents with mildly decreased laryngeal elevation; however, the patient demonstrated excellent airway closure during the swallow. No laryngeal penetration or aspiration observed during the study. During the esophageal screen of pudding and cookie boluses, the patient appeared to have retention of bolus in the middle esophagus with slowed esophageal emptying. Patient also reports symptoms of reflux, including globus sensation and regurgitation of bitter-tasting contents at night time. Will recommend GI consult. - Recommendations Diet: Regular Textures, Thin Liquids Comment: Take medications one at a time whole with water. If sensation of pills caught in throat, take pills one at a time in applesauce/yogurt/pudding. Compensatory Strategies: Small Bites, Slow Rate, Sitting upright, Remain sitting upright for 30 minutes after PO intake Recommend Repeat Modified Barium Swallow: No Need for Skilled Speech Therapy Services: No Recommended Referrals: GI Consult - The patient presents with retention of pudding and barium contrast in mid esophagus with slowed esophageal motility. Education Completed: 1. Described result of evaluation. - Status Active ST Patient: Active - Contact Information [facility] Speech Therapy:: Cass Wyatt M.A. [facility] EXTRACTION TENDER Speech-Language Pathologist [facility] [address] [place] [address] [email or web address] [phone] 07/16/21 15:23
== END 2021-07-16 23:59 | disposition home or self-care (01) ==
LOC: RAD 13:01
PROVIDERS: PCP Internal Medicine; Referring Provider Internal Medicine; Visit Provider Internal Medicine
DX: R13.10 Dysphagia, unspecified (principal)
CPT/HCPCS: 74230; 92611

== ENCOUNTER → 2021-08-05 | Outpatient (CLI) | payer MEDICARE, OTHER, SELFPAY ==
[2021-08-05 15:23] LABS: Anion Gap 6 (5-15); BUN 13 mg/dL (7-18); Calcium,Total 9.1 mg/dL (8.5-10.1); Chloride 105 mmol/L (98-107); Creatinine, Serum 0.87 mg/dL (0.55-1.02); EST Glomerular Filtration Rate 69 mL/min (>60); Est Glom Filt Rate - Afr Amer 84 mL/min (>60); Glucose 103 mg/dL (74-106); Potassium 3.5 mmol/L (3.5-5.1); Sodium Level 140 mmol/L (136-145)
== END | disposition home or self-care (01) ==
LOC: BIMLAB 13:06
PROVIDERS: PCP Internal Medicine; Referring Provider Internal Medicine; Visit Provider Internal Medicine
DX: E87.6 Hypokalemia (principal)
CPT/HCPCS: 36415; 80048

== ENCOUNTER → 2021-10-19 | Outpatient (CLI) | payer MEDICARE, OTHER, SELFPAY ==
--- NOTE | 2021-10-19 08:33 | BI_ITS ---
MAMMOGRAPHY - BILATERAL SCREENING REASON FOR EXAM: Female, 65 years old. Routine annual screening examination. PERTINENT HISTORY: Non-contributory. Prior right stereotactic breast biopsy. TECHNIQUE: Digital bilateral breast kiera (3D mammographic acquisition) in the CC and MLO projections. 2-D mediolateral oblique (MLO) and craniocaudad (CC) views of both breasts were obtained. CAD: Full Field Digital Mammography with Computer Added Detection was performed. COMPARISON: Comparison is made with prior study dated 08/04/2020 and 02/12/2019. FINDINGS: Breast Composition: The breasts are heterogeneously dense, which may obscure small masses. There are no dominant masses or suspicious calcifications. A tissue clip marker is seen in the upper lateral aspect of the right breast. Stable small benign-appearing bilateral axillary lymph nodes. No other significant abnormalities are identified. There has been no significant change since the prior study. BI/SCRN MAMM (CAD)W/KIERA BILAT IMPRESSION: Stable bilateral screening mammogram. Yearly follow-up mammogram recommended. (A) ASSESSMENT CATEGORY: BIRADS Category 2: Benign. A letter regarding these results will be sent to the patient by the facility within 30 days. Approximately 10% of breast cancers are not detected by mammography. A normal mammogram should not delay biopsy of a clinically suspicious abnormality. [id number] Electronically Signed: Alexandro Ghosh MD at 9:37 EDT ,
== END | disposition home or self-care (01) ==
LOC: OPBI 08:31
PROVIDERS: PCP Internal Medicine; Referring Provider Nurse Practitioner Women's Health; Visit Provider Nurse Practitioner Women's Health
DX: Z12.31 Encounter for screening mammogram for malignant neoplasm of breast (principal)
CPT/HCPCS: 77063; 77067

== ENCOUNTER 2021-11-01 09:46 | Day surgery (SDC) | payer MEDICARE, OTHER, SELFPAY ==
[2021-11-01] VITALS (7 sets, daily range): BP systolic 99–133; BP diastolic 73–90; PULSE 78–88; RESP 16–18; TEMP 36.3–36.6; O2SAT 97–100; BMI 30.2
--- NOTE | 2021-11-01 | IMM_PTH ---
PATIENT: MIRIAM MARIO LOC: [facility] U#:[id number] AGE/SX: 65/F ROOM: RE11/01/[address]: Dr. Issa Lim DO : 1955 BED: DIS: 11/01/2021 SPEC #: [id number] RECD: 11/03/21 11:00 STATUS: AYDIN REUmesh #: [id number] NOMI: 11/01/21 00:[address]: Issa Lim DEPT: IMMUNOHISTOCHEMISTRY RECD BY: Alysa Sierra ENTERED: 11/03/21 11:01 SP TYPE: IMMUNO OTHR DR: Dr. Aissatou Hu MD Tissues: A - Esophagus, NOS Procedures: P53 (initial) KI-67 (add) PHYSICIAN & INSTITUTION [place] [id number] SPECIMEN INFORMATION: Tissue Source: A ? Distal esophagus biopsy Clinical Info: Difficulty swallowing, hiatal hernia Specimen Number: [id number] CPT code: 60615, 29482 METHODOLOGY: Deparaffinized sections of prefer/formalin-fixed tissue or PAP/DQ stained slides are incubated with monoclonal/polyclonal antibodies/oligonucleotide probes. Localization is made via biotin free immunoperoxidase method. Appropriate controls are performed and reacted as expected. Results on target cell population are indicated in the following table: RESULTS: ANTIBODY / CLONE RESULT Block A P53 (DO-7) negative Ki-67 (30-9) positive, very low These tests were developed and their performance characteristics determined by [facility]. They may not have been cleared or approved by the U.S. Food and Drug Administration. The FDA has determined that such clearance or approval is not necessary. The above immunohistochemical/dualISH markers are ordered and reviewed by the Pathologist. INTERPRETATION: A. Distal esophagus, biopsy: Negative for dysplasia. SJ:mallory 11/04/2021
[2021-11-01] MEDS: Lactated Ringers 1,000 ML 15 ML IV (10:21)
--- NOTE | 2021-11-01 10:24 | HP.PCM_ITS ---
History and Physical Date of Admission: 11/01/21 MIRIAM MARIO, is a 65 F who presents to the office today for difficulty swallowing for about a year. Feels like food gets stuck at the top of the esophagus and the bottom of the esophagus. She gets very stressed, worries about cancer, very tired. Her mother , her dog , her boyfriend recently. She has sleep apnea; she has scared herself waking up choking; she is getting more used to using CPAP. Denies heartburn or acid reflux. Took TUMS twice in last 6 months for nausea. No vomiting. She reports hx of constipation, but since paying attention to drinking more water she now has less constipation. Now having almost daily BM. No melena or hematochezia. She had a swallowing study with speech therapy who recommenced GI eval 07/16/21?Diagnosis:?Swallow function grossly WNL Impression: The patient demonstrates mild posterior loss of thin liquid bolus prior to swallow onset. She required piecemeal deglutition of cookie bolus; however, she independently cleared oral residue with independent use of second swallow. She presents with mildly decreased laryngeal elevation; however, the patient demonstrated excellent airway closure during the swallow. No laryngeal penetration or aspiration observed during the study. During the esophageal screen of pudding and cookie boluses, the patient appeared to have retention of bolus in the middle esophagus with slowed esophageal emptying. Patient also reports symptoms of reflux, including globus sensation and regurgitation of bitter-tasting contents at night time. Will recommend GI consult. Had colonoscopy [address] Yoon, she recalls it wasn't a complete prep due to constipation, was told to repeat in 2 yrs. Father had colon cancer in his 50s or age 60, he of a stroke. PSH: appy, cholecystectomy, hysterectomy, hemorrhoidectomy ROS Const Constitutional: No fatigue ENT ENT: Positive for difficulty swallowing Cardio Cardiology: Positive for leg pain with exertion Gastro GI: Positive for change in bowel habits, constipation, difficulty swallowing and nausea/dyspepsia; No abdominal pain, belching, bloating, change in stool character, coffee ground emesis, cramping, diarrhea, heartburn, feeling full early, excessive flatus, incontinent of stools, Vomiting blood/hematemesis, Blood in stool, loose stools, Black,tarry stools, pain with swallowing, vomiting or other Musc Musculoskeletal: Positive for stiffness, restless legs, leg pain at night and leg pain with exertion; No joint pain Skin Skin: Positive for itchy eyes and rash; No yellowing of the eye Neuro Neurology: Positive for restless legs Psych Psychiatric: No anxiety and Positive for depression Endo Endocrine: No fatigue Aller/Imm Allergy/Immunologic: Positive for itchy eyes Matt/Lymp Hematologic/Lymphatic: No easy bleeding or easy bruising Exam Const General: cooperative, comfortable, no acute distress, well developed and well groomed Nutritional Appearance: obese HENMT Head: normal to inspection Eyes General: appearance normal, both eyes and all related structures Resp Effort & Inspection: normal respiratory effort GI Palpation: soft and nontender Quality Reporting Tobacco Screening ([facility] 138) Smoking Status: Never smoker Assessment and Plan Assessment and Plan (1) Difficulty swallowing: ?Status:?Chronic ?Qualifiers: ?Dysphagia type:?unspecified? Qualified Code(s):?R13.10 - Dysphagia, unspecified ?Plan: 65 yr old female with difficulty swallowing, DDx includes esophageal stenosis, Johnson's, GERD, achalasia. Will schedule EGD, will also schedule screening colonoscopy, f/u 2 wks after to discuss results. Start PPI now. ? ? ? Medications: New pantoprazole 40 mg? PO QAM 90 tabs 3RF ? ? I have re-examined the patient. There are no clinical changes since date of exam.
--- NOTE | 2021-11-01 10:45 | EGD_PTH ---
PATIENT: MIRIAM MARIO LOC: EN U#:[id number] AGE/SX: 65/F ROOM: RE11/01/[address]: Dr. Issa Lim DO : 1955 BED: DIS: 11/01/2021 SPEC #: [id number] RECD: 11/01/21 13:28 STATUS: AYDIN TROY #: [id number] NOMI: 11/01/21 10:[address]: Issa Lim DEPT: SURGICAL PATHOLOGY RECD BY: Etta Carbajal ENTERED: 11/01/21 14:01 SP TYPE: EGD BIOPSY MICK DR: Dr. Aissatou Hu MD Tissues: A - Esophagus, NOS B - Ascending colon Procedures: Special Stain Group II Surgery Specimen Level IV Alcian Blue/PAS (control) HEADER OPERATION: Colonoscopy with biopsies, EGD with biopsy and dilation (MAC) PRE-OP DIAGNOSIS: Difficulty swallowing, hiatal hernia TISSUE SUBMITTED: A ? Distal esophagus biopsy, B ? Ascending colon polyp MICROSCOPIC DIAGNOSIS A. 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 Focal chronic inflammation. Negative for dysplasia. See comment. B. Ascending colon polyp, biopsy: Tubular adenoma. SJ:rg 11/02/2021 COMMENT A. Alcian blue/PAS stain with matched control is used in the evaluation of the specimen. Immunohistochemistry ([id number]) for P53 and Ki-67 will be performed and results will be reported separately. The specimen predominantly consists of squamous mucosa. MICROSCOPIC DESCRIPTION Slides are reviewed. GROSS DESCRIPTION A - Received in fixative is one container labeled with the patient's name and designated distal esophagus biopsy. The specimen consists of multiple irregular fragments of light goel soft tissue that in aggregate measure 1.3 x 0.5 x 0.1 cm. The specimen is totally submitted in one cassette. B - Received in fixative is one container labeled with the patient's name and designated ascending colon polyp. The specimen consists of multiple irregular fragments of light goel soft tissue that in aggregate measure 0.6 x 0.6 x 0.1 cm. The specimen is totally submitted in one cassette. / DORYS:mallory 11/01/2021 TC:1 CPT: 81357 x2, 73563
--- NOTE | 2021-11-01 11:58 | OP.EGD_ITS ---
Patient Name: Estefania Godoy Procedure Date: 11/01/2021 11:08 AM Date of : 1955 Age: 65 Procedure: Upper GI endoscopy Indications: Dysphagia Providers: Issa Lim DO Medicines: Monitored Anesthesia Care Patient Profile: This is a 65 year old female. Refer to note in patient chart for documentation of history and physical. Patient has symptoms of chronic dysphagia. Complications: No immediate complications. Procedure: Pre-Anesthesia Assessment: - Prior to the procedure, a History and Physical was performed, and patient medications and allergies were reviewed. The risks and benefits of the procedure and the sedation options and risks were discussed with the patient. All questions were answered and informed consent was obtained. Patient identification and proposed procedure were verified by the physician in the pre-procedure area. Mental Status Examination: alert and oriented. Airway Examination: normal oropharyngeal airway and neck mobility. Respiratory Examination: clear to auscultation. CV Examination: normal. Prophylactic Antibiotics: The patient does not require prophylactic antibiotics. Prior Anticoagulants: The patient has taken no previous anticoagulant or antiplatelet agents. After reviewing the risks and benefits, the patient was deemed in satisfactory condition to undergo the procedure. The anesthesia plan was to use moderate sedation / analgesia (conscious sedation). Immediately prior to administration of medications, the patient was re-assessed for adequacy to receive sedatives. The heart rate, respiratory rate, oxygen saturations, blood pressure, adequacy of pulmonary ventilation, and response to care were monitored throughout the procedure. The physical status of the patient was re-assessed after the procedure. After obtaining informed consent, the endoscope was passed under direct vision. Throughout the procedure, the patient's blood pressure, pulse, and oxygen saturations were monitored continuously. The colonoscope was introduced through the mouth, and advanced to the second part of duodenum. The upper GI endoscopy was accomplished without difficulty. The patient tolerated the procedure well. Scope In: 11:24:16 AM Scope Out: 11:31:39 AM Total Procedure Duration Time 0 hours 7 minutes 23 seconds Findings: The Z-line was irregular and was found 38 cm from the incisors. Biopsies were taken with a cold forceps for histology. Verification of patient identification for the specimen was done. Estimated blood loss was minimal. A moderate Schatzki ring was found in the lower third of the esophagus. A guidewire was placed and the scope was withdrawn. Dilation was performed with a Savary dilator with no resistance at 51 Fr. The dilation site was examined and showed moderate improvement in luminal narrowing. Estimated blood loss was minimal. A medium-sized hiatal hernia was present. The first portion of the duodenum was normal. Impression: - Z-line irregular, 38 cm from the incisors. Biopsied. - Moderate Schatzki ring. Dilated. - Medium-sized hiatal hernia. - Normal first portion of the duodenum. Recommendation: - Discharge patient to home. - Resume previous diet. - Continue present medications. - Await pathology results. Procedure Code(s): --- Professional --- 92257, Esophagogastroduodenoscopy, flexible, transoral; with insertion of guide wire followed by passage of dilator(s) through esophagus over guide wire 91708, 59,51, Esophagogastroduodenoscopy, flexible, transoral; with biopsy, single or multiple CPT copyright 2017 [employer]. All rights reserved. The codes documented in this report are preliminary and upon shift mechanic review may be revised to meet current compliance requirements. Issa Lim DO 11/01/2021 11:58:30 AM This report has been signed electronically. Number of Addenda: 1 Note Initiated On: 11/01/2021 11:08 AM Addendum Number: 1 Addendum Date: 01/12/2022 6:07:44 AM MAC was used as sedation for this procedure. Issa Lim DO 01/12/2022 6:07:48 AM This report has been signed electronically.
--- NOTE | 2021-11-01 12:00 | OP.CCLET_ITS ---
01/12/2022 Aissatou Hu MD [address] [place] [address] [place] [address] Re : Upper GI endoscopy procedure for Estefania Godoy Dear Dr. Hu This procedure was performed on Monday, November 01, 2021. My impressions and recommendations are as follows: Impressions : - Z-line irregular, 38 cm from the incisors. Biopsied. - Moderate Schatzki ring. Dilated. - Medium-sized hiatal hernia. - Normal first portion of the duodenum. Recommendations : - Discharge patient to home. - Resume previous diet. - Continue present medications. - Await pathology results. My findings are described in the full procedure note, which is enclosed. If I can be of further assistance, please feel free to contact me at . Sincerely, Issa Lim, 11/01/2021 11:58:30 AM This report has been signed electronically.
--- NOTE | 2021-11-01 12:07 | OP.COLON_ITS ---
Patient Name: Estefania Godoy Procedure Date: 11/01/2021 11:31 AM Date of : 1955 Age: 65 Procedure: Colonoscopy Indications: Screening for colorectal malignant neoplasm Providers: Issa Lim DO Medicines: Monitored Anesthesia Care Patient Profile: This is a 65 year old female. Refer to note in patient chart for documentation of history and physical. Patient has symptoms of chronic dysphagia. Last Colonoscopy: 10 years ago. Complications: No immediate complications. Procedure: Pre-Anesthesia Assessment: - Prior to the procedure, a History and Physical was performed, and patient medications and allergies were reviewed. The risks and benefits of the procedure and the sedation options and risks were discussed with the patient. All questions were answered and informed consent was obtained. Patient identification and proposed procedure were verified by the physician in the pre-procedure area. Mental Status Examination: alert and oriented. Airway Examination: normal oropharyngeal airway and neck mobility. Respiratory Examination: clear to auscultation. CV Examination: normal. Prophylactic Antibiotics: The patient does not require prophylactic antibiotics. Prior Anticoagulants: The patient has taken no previous anticoagulant or antiplatelet agents. After reviewing the risks and benefits, the patient was deemed in satisfactory condition to undergo the procedure. The anesthesia plan was to use moderate sedation / analgesia (conscious sedation). Immediately prior to administration of medications, the patient was re-assessed for adequacy to receive sedatives. The heart rate, respiratory rate, oxygen saturations, blood pressure, adequacy of pulmonary ventilation, and response to care were monitored throughout the procedure. The physical status of the patient was re-assessed after the procedure. After I obtained informed consent, the scope was passed under direct vision. Throughout the procedure, the patient's blood pressure, pulse, and oxygen saturations were monitored continuously. The colonoscope was introduced through the anus and advanced to the cecum, identified by appendiceal orifice and ileocecal valve. The ileocecal valve, appendiceal orifice, and rectum were photographed. Scope In: 11:34:12 AM Scope Withdrawal Time 0 hours 5 minutes 19 seconds Scope Out: 11:51:54 AM Total Procedure Duration Time 0 hours 17 minutes 42 seconds Findings: The perianal and digital rectal examinations were normal. A few small and large-mouthed diverticula were found in the recto-sigmoid colon and sigmoid colon. A 5 mm polyp was found in the ascending colon. The polyp was sessile. The polyp was removed with a cold biopsy forceps. Resection and retrieval were complete. Verification of patient identification for the specimen was done. Estimated blood loss was minimal. Impression: - Diverticulosis in the recto-sigmoid colon and in the sigmoid colon. - One 5 mm polyp in the ascending colon, removed with a cold biopsy forceps. Resected and retrieved. Recommendation: - Await pathology results. - Repeat colonoscopy in 5 years for surveillance. - Return to GI office in 1 week. - Continue present medications. Procedure Code(s): --- Professional --- 51326, Colonoscopy, flexible; with biopsy, single or multiple CPT copyright 2017 [employer]. All rights reserved. The codes documented in this report are preliminary and upon manager non profit review may be revised to meet current compliance requirements. Issa Lim DO 11/01/2021 12:06:57 PM This report has been signed electronically. Number of Addenda: 1 Note Initiated On: 11/01/2021 11:31 AM Addendum Number: 1 Addendum Date: 01/12/2022 6:07:59 AM MAC was used as sedation for this procedure. Issa Lim DO 01/12/2022 6:08:05 AM This report has been signed electronically.
--- NOTE | 2021-11-01 12:08 | OP.CCLET_ITS ---
01/12/2022 Aissatou Hu MD [address] [place] [address] [place] [address] Re : Colonoscopy procedure for Estefaniasonia Godoy Dear Dr. Hu This procedure was performed on Monday, November 01, 2021. My impressions and recommendations are as follows: Impressions : - Diverticulosis in the recto-sigmoid colon and in the sigmoid colon. - One 5 mm polyp in the ascending colon, removed with a cold biopsy forceps. Resected and retrieved. Recommendations : - Await pathology results. - Repeat colonoscopy in 5 years for surveillance. - Return to GI office in 1 week. - Continue present medications. My findings are described in the full procedure note, which is enclosed. If I can be of further assistance, please feel free to contact me at . Sincerely, Issa Friend, 11/01/2021 12:06:57 PM This report has been signed electronically.
== END 2021-11-01 13:05 | disposition home or self-care (01) ==
LOC: EN 09:48 → AC 09:49
PROVIDERS: PCP Internal Medicine; Referring Provider Internal Medicine; Visit Provider Internal Medicine Gastroenterology
PROC: 0DJD8ZZ Inspection of Lower Intestinal Tract, Via Natural or Artificial Opening Endoscopic (ICD-10-PCS; CPT 45378; principal; 2021-11-01 10:40)
DX: Z12.11 Encounter for screening for malignant neoplasm of colon (principal); K22.2 Esophageal obstruction; D12.2 Benign neoplasm of ascending colon; K57.30 Diverticulosis of large intestine without perforation or abscess without bleeding; K44.9 Diaphragmatic hernia without obstruction or gangrene; R13.10 Dysphagia, unspecified; K22.70 Barrett's esophagus without dysplasia; Z80.0 Family history of malignant neoplasm of digestive organs
CPT/HCPCS: 43248; 43239; 45380; 88305; 88313; 88341; 88342; J7120; C1769; J2405

== ENCOUNTER → 2022-02-04 | Outpatient (CLI) | payer MEDICARE, OTHER, SELFPAY ==
[2022-02-04 15:23] LABS: Anion Gap 7 (5-15); BUN 14 mg/dL (7-18); BUN/Creat Ratio 15.2 RATIO (10-20); Calcium,Total 9.7 mg/dL (8.5-10.1); Chloride 107 mmol/L (98-107); Creatinine, Serum 0.92 mg/dL (0.55-1.02); EST Glomerular Filtration Rate 65 mL/min (>60); Est Glom Filt Rate - Afr Amer 78 mL/min (>60); Glucose 124 mg/dL (74-106); Magnesium 2.3 mg/dL (1.6-2.6); Potassium 3.4 mmol/L (3.5-5.1); Sodium Level 141 mmol/L (136-145)
== END | disposition home or self-care (01) ==
LOC: MTLAB 12:52
PROVIDERS: PCP Internal Medicine; Referring Provider Nurse Practitioner Family; Visit Provider Nurse Practitioner Family
DX: E87.6 Hypokalemia (principal)
CPT/HCPCS: 36415; 80048; 83735

== ENCOUNTER → 2022-06-08 | Outpatient (CLI) | payer MEDICARE, OTHER, SELFPAY ==
[2022-06-08 12:25] LABS: Hematocrit 45.3 % (37-47); Hemoglobin 14.5 g/dL (12.0-15.0); Mean Corpuscular Hgb 29.6 pg (27.0-32.0); Mean Corpuscular Volume 92.4 fL (81-99); Mean Platelet Vol. 10.4 fl (6.2-12.0); Platelet Count 375 K/mm3 (150-450); RBC Distribution Width CV 13.7 % (11.6-14.6); RBC Distribution Width SD 46.5 fl (35.1-43.9); White Blood Count 6.6 K/mm3 (4.4-11.0)
[2022-06-08 12:57] LABS: Vitamin B12 457 pg/mL (211-911); Vitamin D,25 Hydroxy 64.9 ng/mL
[2022-06-08 13:17] LABS: ALB/GLOB Ratio 1.1 RATIO (0.9-2.4); AST(SGOT) 26 U/L (15-37); Alanine Aminotransfer ALT/SGPT 36 U/L (13-56); Albumin, Serum 3.8 g/dL (3.2-5.0); Alkaline Phosphatase 101 U/L (45-117); Anion Gap 8 (5-15); BUN 19 mg/dL (7-18); BUN/Creat Ratio 20.3 RATIO (10-20); Calcium,Total 9.9 mg/dL (8.5-10.1); Chloride 105 mmol/L (98-107); Creatinine, Serum 0.94 mg/dL (0.55-1.02); EST Glomerular Filtration Rate 63 mL/min (>60); Est Glom Filt Rate - Afr Amer 76 mL/min (>60); Globulin 3.4 g/dL (2.2-4.2); Glucose 111 mg/dL (74-106); Magnesium 2.3 mg/dL (1.6-2.6); Potassium 3.4 mmol/L (3.5-5.1); Protein, Total 7.2 g/dL (6.4-8.2); Sodium Level 142 mmol/L (136-145); Thyroid Stim Hormone (TSH) 2.31 uIU/mL (0.358-3.74)
== END | disposition home or self-care (01) ==
LOC: BIMLAB 11:12
PROVIDERS: PCP Internal Medicine; Referring Provider Nurse Practitioner Family; Visit Provider Nurse Practitioner Family
DX: I10 Essential (primary) hypertension (principal); M79.10 Myalgia, unspecified site; F32.9 Major depressive disorder, single episode, unspecified; E87.6 Hypokalemia; E56.9 Vitamin deficiency, unspecified; M81.0 Age-related osteoporosis without current pathological fracture
CPT/HCPCS: 36415; 80053; 82306; 82607; 83735; 84443; 85027

== ENCOUNTER → 2022-08-03 | Outpatient (CLI) | payer MEDICARE, OTHER, SELFPAY ==
--- NOTE | 2022-08-03 08:30 | MRI_ITS ---
EXAM: MR RIGHT UPPER EXTREMITY WITHOUT INTRAVENOUS CONTRAST, SHOULDER CLINICAL INDICATION: SPRAIN OF MUSCLE TENDON RIGHT SHOULDER TECHNIQUE: Multiplanar and multisequence MR images of the right shoulder without intravenous contrast. This report was created using [employer] technology. COMPARISON: None. FINDINGS: TENDONS: SUPRASPINATUS: Full-thickness full width tear of the supraspinatus tendon with a background of supraspinatus tendinosis. There is retraction of the torn tendon resulting in a gap of the 1.8 cm. INFRASPINATUS: Unremarkable. Intact. SUBSCAPULARIS: Unremarkable. Intact. TERES MINOR: Unremarkable. Intact. BICEPS BRACHII, LONG HEAD: Long head biceps tendon is intact and normal in position. The extra-articular biceps tendon is in the bicipital groove. LIGAMENTS: GLENOHUMERAL: Unremarkable. Intact. CORACOACROMIAL: Type II acromion with curved undersurface. No coracoacromial ligament thickening. No os acromiale. MUSCLES: Unremarkable. No rotator cuff muscle atrophy. FLUID: At least a moderate amount of fluid is present in the glenohumeral joint which crosses the full thickness rotator cuff defect into the subacromial/subdeltoid bursa. No joint effusion. CARTILAGE: Unremarkable. Articular cartilage intact. GLENOID LABRUM: Unremarkable. No labral tearing. BONES/JOINTS: Moderate hypertrophic degenerative changes of the acromioclavicular joint. No concerning bone marrow signal alterations. OTHER SOFT TISSUES: Unremarkable. No rotator interval edema. MRI/Upper Ext Joint Only(Routine) IMPRESSION: 1. Full-thickness full width tear of the supraspinatus tendon on a background of supraspinatus tendinosis. There is retraction of the torn tendon resulting in a gap of the 1.8 cm. 2. Moderate hypertrophic degenerative changes of the acromioclavicular joint. 3. At least moderate amount of fluid in the glenohumeral joint crossing into the subacromial/subdeltoid bursa. Electronically Signed: Denzel Aguilar MD at 21:53 EDT ,
== END | disposition home or self-care (01) ==
LOC: MRI 07:40
PROVIDERS: PCP Internal Medicine; Referring Provider Orthopaedic Surgery; Visit Provider Orthopaedic Surgery
DX: S46.011A Strain of muscle(s) and tendon(s) of the rotator cuff of right shoulder, initial encounter (principal); X58.XXXA Exposure to other specified factors, initial encounter
CPT/HCPCS: 73221

== ENCOUNTER → 2022-10-19 | Outpatient (CLI) | payer MEDICARE, OTHER, SELFPAY ==
[2022-10-19 12:45] LABS: AST(SGOT) 17 U/L (15-37); Alanine Aminotransfer ALT/SGPT 30 U/L (13-56); Albumin, Serum 3.5 g/dL (3.2-5.0); Alkaline Phosphatase 112 U/L (45-117); Anion Gap 5 (5-15); BUN 16 mg/dL (7-18); Calcium,Total 9.3 mg/dL (8.5-10.1); Chloride 108 mmol/L (98-107); Cholesterol 186 mg/dL (200); EST Glomerular Filtration Rate 59 mL/min (>60); Est Glom Filt Rate - Afr Amer 71 mL/min (>60); Globulin 3.6 g/dL (2.2-4.2); Glucose 77 mg/dL (74-106); High Density Lipoprotein 61 mg/dL; Potassium 3.3 mmol/L (3.5-5.1); Protein, Total 7.1 g/dL (6.4-8.2); Sodium Level 140 mmol/L (136-145); Triglycerides 104 mg/dL; Very Low Density Lipoprotein 21 mg/dL (5-40)
== END | disposition home or self-care (01) ==
LOC: BIMLAB 11:02
PROVIDERS: PCP Internal Medicine; Visit Provider Internal Medicine
DX: I10 Essential (primary) hypertension (principal)
CPT/HCPCS: 36415; 80053; 80061

== ENCOUNTER 2023-02-23 10:30 | Outpatient (RCR) | payer MEDICARE, OTHER, SELFPAY ==
--- NOTE | 2022-12-05 09:45 | HP.PTEVAL_ITS ---
Patient's Visit Information Visit Information Visit Information: MIRIAM MARIO is a 67 year old F referred to Physical Therapy by Dr. Jered Castro MD with a diagnosis of R RCR 11/17 22. Date of Evaluation: 12/05/22 Physical Therapist: Car Negrete, DPT, OCS, CSCS Visit Plan Frequency: 2x /Week Duration: 2-3 months Plan: 2x/week for 10-12 weeks for ... 1. PROM and AAROM haresh and wand gradually for December 2. AROM end december as appropriate 3. strength when appropriate from doctor, mid January. educaste on posture, activitiy modificaiton, ice as needed. Subjective Subjective: R RCR and SAD 11/17/22. Not sure how tore RC. Happened over time. Had a cleaning service and tore over time. It hurt since June until she had the surgery. Lifted dog one time and that may have exacerbated the problem in April. No current pain, used to be in biceps R. Was crystal to move arm prior to surgery but it was achy. Not much pain since surgery, has pain meds but has not needed them. In sling with abd wedge since surgery, will wear it for a few more weeks. HEP: elbow AROM. Sleeping is not great, hard to get comfy. Sleeps on couch. Last two nights has used chair and is a little better. Cannot drive. Retired. Activities when healthy: In garden and not doing that right now. Walks alot 3x/day and has started that. Live alone, basic ADLS are slow and one handed but can do them slowly. Has ice machine that she uses. has two cats that she takes care of slowly. Pain R shoulder: Pain Intensity (Out of 10): 0 Pain Intensity Range: 0 and 2 Comment: stiff in am Objective Objective: Walks into PT I, trasnfers I. Don and doffs sling I(pointers given for ease and positioning) Incisions are arthroscopic and healed well without any obvious scarring or redness/heat today PROM R shoulder 130 flexion 110 abduction, 35 er, 60IR at 60 abd. Limited by slight discomfort and starting tightness/muscle contractions. L shoulder AROM WFL and without pain. R elbow , wirst adn hnad with full aROM without pain. Posture is forward head and scapula protracted, can retract with VC. Balance/Special Test Scores Quick DASH Score: 61.3625 Goals Goal 1:: ST: PROM 160 flex and abduction and 75 er and 75 IR Goal Time Frame: 2-4 Weeks Goal 2:: I management of constiion including long term acute care registered nurse ex and gym program Goal Time Frame: 8-12 Weeks Goal 3:: Full AROM without pain or discomfort Goal Time Frame: 6-8 Weeks Goal 4:: Resume gardening and yard work without pain Goal Time Frame: 6-8 Weeks Goal 5:: sleep without waking Goal Time Frame: 4-6 Weeks Goal 6:: 14 or better quickdash Goal Time Frame: 8-12 Weeks Rehabilitation Potential Physical Therapy Diagnosis: R RCR and resulting weakness and healing Rehabilitation Potential: Good Anticipated Interventions Patient/Client Instruction: Educate patient on: Condition and Plan of Care For the Purpose of:: To decrease pain, To increase ROM, To improve nutrient delivery to tissue, To improve muscle performance and motor function, To increase tolerance to activity/condition/position and To improve ability of physical actions for home/community/work/leisure Therapeutic Exercise to Include: Passive ROM Comment: strength and AROM when appropriate form doctor For the Purpose of:: To decrease pain, To increase ROM, To improve nutrient delivery to tissue and To increase tolerance to activity/condition/position Manual Therapy Techniques to Include: Passive ROM For the Purpose of:: To increase ROM Cryotherapy (ice pack, ice massage): Yes For the Purpose of:: To decrease pain and To decrease swelling/inflammation Text: Thank you for the opportunity to evaluate your patient. For Medicare and Medicare HMO plans, please review the plan of care and approve it. It will need to be FAXED BACK to us at [phone] for Medicare purposes. For Medicare only, by signing this I certify the plan of care. Please let me know if there are questions or concerns regarding this plan of care. Physician Signature: Date:
--- NOTE | 2023-02-23 11:13 | HP.PTREVAL ---
Re-Evaluation Intro: Dr. Jered Castro MD, It has been my pleasure to treat MIRIAM MARIO over the last 13 visits for R RCR 11/17 22. Please see the progress note below for an update on the physical therapy plan of care! Subjective Subjective: Had a rough couple weeks with other health problems and had to cancel surgeon f/u, will reschedule for next week. Still hard to sleep on R side but doing OK. Not much pain in shoulder lately, aches sometimes but not bad. ROM feels pretty good. Strength is pretty good, can open jars. Activities : doing normal activities. Hobbies including gardening but that is over for now. Walking 3x/day. 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 Objective Objective/Function: 160 AROM R flexion and abduction, no pain. 75 prom er and 62 AROM. IR funcitonal past lumbar spine. strength is 4/5 R except flexion which is 4-, no pain. 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 gym ex goal appropriate and good prognosis. Plan Plan Plan: 2x/week for 2 weeks to teach gym program to include core, LE, posture and haresh RC and CV, work to I and give pics as HEP for d/c. Pt will call and schedule after she sees doctor for f/u and release. Balance/Gait/Functional tests Balance/Special Test Scores Quick DASH Score: 11.3625 Goals Goals Goal 1:: ST: PROM 160 flex and abduction and 75 er and 75 IR Goal Time Frame: 2-4 Weeks Goal Progress: Goal Met Goal 2:: I management of constiion including fci ex and gym program Goal Time Frame: 8-12 Weeks Goal Progress: gym not yet, approp Goal 3:: Full AROM without pain or discomfort Goal Time Frame: 6-8 Weeks Goal Progress: Goal Met Goal 4:: Resume gardening and yard work without pain Goal Time Frame: 6-8 Weeks Goal Progress: Goal Met Goal 5:: sleep without waking Goal Time Frame: 4-6 Weeks Goal Progress: Goal Met Goal 6:: 14 or better quickdash Goal Time Frame: 8-12 Weeks Goal Progress: Progressing Anticipated Interventions Anticipated Interventions Patient/Client Instruction: Educate patient on: Condition and Plan of Care For the Purpose of:: To decrease pain, To increase ROM, To improve nutrient delivery to tissue, To improve muscle performance and motor function, To increase tolerance to activity/condition/position and To improve ability of physical actions for home/community/work/leisure Therapeutic Exercise to Include: Passive ROM Comment: strength and AROM when appropriate form doctor For the Purpose of:: To decrease pain, To increase ROM, To improve nutrient delivery to tissue and To increase tolerance to activity/condition/position Manual Therapy Techniques to Include: Passive ROM For the Purpose of:: To increase ROM Cryotherapy (ice pack, ice massage): Yes For the Purpose of:: To decrease pain and To decrease swelling/inflammation Re-Evaluation Ending Re-evaluation ending: Please do not hesitate to contact me at [phone] by phone or if you have questions or concerns regarding this new plan of care! Sincerely, Car Negrete, DPT, OCS, CSCS
--- NOTE | 2023-05-19 14:30 | HP.PT.NRP ---
Patient Information Patient Information: MIRIAM MARIO was seen in my office for initial evaluation on 12/05/22. The following Plan of Care was established for this patient: POC Established Initial Frequency: 2x /Week Initial Duration: 2-3 months Anticipated Interventions Patient/Client Instruction: Educate patient on: Condition and Plan of Care For the Purpose of:: To decrease pain, To increase ROM, To improve nutrient delivery to tissue, To improve muscle performance and motor function, To increase tolerance to activity/condition/position and To improve ability of physical actions for home/community/work/leisure Therapeutic Exercise to Include: Passive ROM For the Purpose of:: To decrease pain, To increase ROM, To improve nutrient delivery to tissue and To increase tolerance to activity/condition/position Manual Therapy Techniques to Include: Passive ROM For the Purpose of:: To increase ROM Cryotherapy (ice pack, ice massage): Yes For the Purpose of:: To decrease pain and To decrease swelling/inflammation Last Seen Last Seen: This patient was last seen in our office 02/23/23. Pertinent comments regarding their Physical therapy will appear below: Pt seen for 13 visits and was 85% improved. Plan was to continue 2 more weeks to progress to independent gym program but patient did not schedule or attend. I will discontinue at this time. At this point I will be discontinuing this patient from physical therapy. I would be happy to see this patient again in the future if found appropriate by the physician. Thank you! Car Negrete, DPT, OCS, CSCS Balance/Gait/Functional tests Balance/Special Test Scores Quick DASH Score: 11.3627
== END 2023-02-23 19:00 | disposition home or self-care (01) ==
LOC: PT 10:30
PROVIDERS: PCP Internal Medicine; Referring Provider Orthopaedic Surgery; Visit Provider Orthopaedic Surgery
DX: M17.11 Unilateral primary osteoarthritis, right knee (principal)
CPT/HCPCS: 97110; 97140; 97161; 97530

== ENCOUNTER → 2023-04-26 | Outpatient (CLI) | payer MEDICARE, OTHER, SELFPAY ==
[2023-04-26 11:22] LABS: Bacteria 0 SEEN /hpf (None Seen); Mucous, Urine 0 SEEN /hpf (<or=2+); Red Blood Cells-Urine 0 SEEN /hpf (0-5)
--- OUTSIDE RECORDS SUMMARY | 2023-04-26 11:39 | XMS RPT_ITS | CCD ---
Author Name Unknown Address [address] [place] [address] Organization [facility] Care Team Providers Care Scrap Hoist Operator Name Role Phone Radha Baltazar LPN Unavailable [phone] Raul Spencer Unavailable Ferny Solorzano PA-C Unavailable [phone] Radha Baltazar LPN Unavailable Radha Baltazar LPN Unavailable Raul Spencer Unavailable Allergies Allergy Classification Reported Allergen(s) Allergy Type Date of Onset Reaction(s) Facility (6 sources) sulfamethoxazole / trimethoprim drug allergy 7 Facial and lip swelling. Headache [facility] Work Phone: Medications Completed/Discontinued Medications Medication Drug Class(es) Dates Sig (Normalized) Sig (Original) AMLODIPINE-OLMESA RTAN (7 sources) Dihydropyridine Calcium Channel Max, Angiotensin 2 Receptor Max Start: 10-08-2016 NICOLE 10-20 MG TABS as directed AMLODIPINE-OLMESA RTAN [id number] Ferny Solorzano PA-C Problems Active Problems Problem Classification Problem Date Documented Da te Episodic/Chronic Essential hypertension (7 sources) Hypertensive disorder; Translations: [Essential (primary) hypertension] 10-08-2016 Chronic Other screening for suspected conditions (not mental disorders or infectious disease) (1 source) No current problems or disability 10-08-2016 Past or Other Problems Problem Classification Problem Date Documented Date Episodic/Chronic Other upper respiratory disease (3 sources) Pain in throat; Translations: [Acute pharyngitis, unspecified] Onset: 11-02-2016 11-02-2016 Episodic Other upper respiratory infections (4 sources) Streptococcal sore throat; Translations: [Pharyngitis] Onset: 11-02-2016 11-04-2016 Episodic Urinary tract infections (7 sources) Urinary tract infectious disease; Translations: [Urinary tract infection, site not specified] Onset: 10-08-2016 10-08-2016 Episodic Results Test Name Value Interpretation Reference Range Facil ity Vital Signs Date Time Vital Sign Value Performing Clinician Gigi vance 11-02-2016 09:30-0400 BMI (Body Mass Index) 27.94 kg/m2 Raul COTTRELL [facility] Work Phone: 11-02-2016 09:30-0400 Body Temperature 98.2 [degF] Raul COTTRELL [facility] Work Phone: 11-02-2016 09:30-0400 BP Diastolic 72 mm[Hg] Raul COTTRELL [facility] Work Phone: 11-02-2016 09:30-0400 BP Systolic 124 mm[Hg] Raul COTTRELL [facility] Work Phone: 11-02-2016 09:30-0400 Height 157.48 cm Raul COTTRELL [facility] Work Phone: 11-02-2016 09:30-0400 Pulse (Heart Rate) 89 /min Raul COTTRELL [facility] Work Phone: 11-02-2016 09:30-0400 Respiratory Rate 12 /min Raul COTTRELL [facility] Work Phone: 11-02-2016 09:30-0400 Weight 69.31 kg Raul COTTRELL [facility] Work Phone: 10-08-2016 11:36-0400 BMI (Body Mass Index) 27.98 kg/m2 Radha Baltazar LPN [facility] Work Phone: 10-08-2016 11:36-0400 Body Temperature 97.1 [degF] Radha Baltazar LPN [facility] Work Phone: 10-08-2016 11:36-0400 BP Diastolic 80 mm[Hg] Radha Baltazar LPN [facility] Work Phone: 10-08-2016 11:36-0400 BP Systolic 126 mm[Hg] Radha Baltazar LPN [facility] Work Phone: 10-08-2016 11:36-0400 Height 157.48 cm Radha Baltazar LPN [facility] Work Phone: 10-08-2016 11:36-0400 Pulse (Heart Rate) 87 /min Radha Baltazar LPN [facility] Work Phone: 10-08-2016 11:36-0400 Pulse Oximetry 97 % Radha Baltazar LPN [facility] Work Phone: 10-08-2016 11:36-0400 Respiratory Rate 16 /min Radha Baltazar LPN [facility] Work Phone: 10-08-2016 11:36-0400 Weight 69.4 kg Radha Baltazar LPN [facility] Work Phone: Procedures Date Procedure Procedure Detail Performing Clinician Start: 11-02-2016 End: 11-02-2016 Urinalysis Raul COTTRELL Start: 11-02-2016 End: 11-02-2016 Iaadiadoo streptococcus group a Raul COTTRELL Work Phone: Start: 11-02-2016 End: 11-02-2016 Rapid strep test Raul COTTRELL Work Phone: Start: 11-02-2016 End: 11-02-2016 Urinalysis nonauto w/o scope Raul COTTRELL Work Phone: Start: 10-08-2016 End: 10-08-2016 Urinalysis nonauto w/o scope Ferny Solorzano PA-C Work Phone: Plan of Treatment Date Care Activity Detail Author Start: 11-02-2016 End: 11-02-2016 Appointment Appointment [facility] Work Phone: Start: 11-02-2016 End: 11-02-2016 Streptococcus.beta-hemol ytic [Presence] in Throat by Organism specific culture *Culture, R/O Strep A Swab [facility] Work Phone: Start: 10-08-2016 End: 10-08-2016 Appointment Appointment [facility] Work Phone: Patient Education [facility] Work Phone: Additional Source Comments FOR RECORDS PERTAINING TO PATIENTS WHO ARE OR HAVE BEEN ENROLLED IN A CHEMICAL DEPENDENCY/SUBSTANCEABUSE PROGRAM, SOME INFORMATION MAY BE OMITTED. This clinical summary was aggregated from multiple sources. Caution should be exercised in using it in the provision of clinical care. This summary normalizes information from multiple sources, and as a consequence, information in this document may materially change the coding, format and clinical context of patient data. In addition, data may be omitted in some cases. CLINICAL DECISIONS SHOULD BE BASED ON THE PRIMARY CLINICAL RECORDS. [facility] [employer] [facility]. provides no warranty or guarantee of the accuracy or completeness of information in this document.
[2023-04-26 12:18] LABS: Color, Urine Yellow (Yellow); Glucose, Dipstick Normal (Normal); Ketone-Dipstick 5 mg/dl (Negative); Leukocyte Esterase-Dipstick 100 /ul (Negative); Nitrite-Dipstick Positive (Negative); Occult Blood-Urine 10 /ul (Negative); Protein-Dipstick 30 mg/dl (Negative); Specific Gravity, Urine 1.025 (1.002-1.030); Urine Clarity Clear (Clear); Urine Urobilinogen 4 mg/dl (Normal)
[2023-04-26 12:21] LABS: Absolute Lymphocyte Count 1.94 X10^3/uL (0.83-4.51); Absolute Neutrophil Count 4.3 X10^3/uL (2.0-7.7); Basophil# 0.06 X10^3/uL; Basophil% 0.8 % (0-1); Eosinophil# 0.15 X10^3/uL; Eosinophils% 2.1 % (0-5); Hematocrit 43.8 % (37-47); Hemoglobin 14.3 g/dL (12.0-15.0); Lymphocyte # 1.94 X10^3/ul (0.83-4.51); Lymphocyte % 27.1 % (19-41); Mean Corp Hgb Conc 32.6 g/dL (32-36); Mean Corpuscular Hgb 29.6 pg (27.0-32.0); Mean Corpuscular Volume 90.7 fL (81-99); Mean Platelet Vol. 10.5 fl (6.2-12.0); Monocyte# 0.69 X10^3/uL; Monocyte% 9.6 % (0-10); NRBC Flagged by Analyzer 0 % (0-5); Neutrophil # 4.29 X10^3/uL (2.7-7.7); Neutrophil % 59.8 % (47-70); Platelet Count 381 K/mm3 (150-450); RBC Distribution Width CV 13.2 % (11.6-14.6); RBC Distribution Width SD 44.4 fl (35.1-43.9); Red Blood Count 4.83 M/mm3 (4.2-5.4); White Blood Count 7.2 K/mm3 (4.4-11.0)
[2023-04-26 12:45] LABS: Urine Bilirubin Dipstick 3 mg/dL (Negative)
[2023-04-26 12:47] LABS: Calcium Oxalate Crystals Ur 1+ /hpf (<or=2+); White Blood Cells 10-25 SEEN /hpf (0-5)
[2023-04-26 12:48] LABS: Squamous Epithelial Cells - UA 0-5 SEEN /hpf (5-10)
[2023-04-26 13:07] LABS: ALB/GLOB Ratio 1.1 RATIO (0.9-2.4); AST(SGOT) 19 U/L (15-37); Alanine Aminotransfer ALT/SGPT 27 U/L (13-56); Albumin, Serum 3.5 g/dL (3.2-5.0); Alkaline Phosphatase 115 U/L (45-117); Anion Gap 6 (5-15); BUN 16 mg/dL (7-18); BUN/Creat Ratio 18.5 RATIO (10-20); Calcium,Total 9.8 mg/dL (8.5-10.1); Chloride 109 mmol/L (98-107); Creatinine, Serum 0.86 mg/dL (0.55-1.02); EST Glomerular Filtration Rate 69 mL/min (>60); Est Glom Filt Rate - Afr Amer 84 mL/min (>60); Globulin 3.3 g/dL (2.2-4.2); Glucose 122 mg/dL (74-106); Potassium 3.4 mmol/L (3.5-5.1); Protein, Total 6.8 g/dL (6.4-8.2); Sodium Level 141 mmol/L (136-145)
== END | disposition home or self-care (01) ==
LOC: BIMLAB 11:21
PROVIDERS: PCP Internal Medicine; Visit Provider Internal Medicine
DX: R30.0 Dysuria (principal); I10 Essential (primary) hypertension
CPT/HCPCS: 36415; 80053; 81001; 85025; 87086

== ENCOUNTER → 2023-07-06 | Outpatient (CLI) | payer MEDICARE, OTHER, SELFPAY ==
--- NOTE | 2023-07-06 10:40 | BI_ITS ---
MAMMOGRAPHY - BILATERAL SCREENING REASON FOR EXAM: Female, 67 years old. Routine annual screening examination. PERTINENT HISTORY: Non-contributory. Prior right stereotactic breast biopsy. TECHNIQUE: Digital bilateral breast kiera (3D mammographic acquisition) in the CC and MLO projections. 2-D mediolateral oblique (MLO) and craniocaudad (CC) views of both breasts were obtained. CAD: Full Field Digital Mammography with Computer Added Detection was performed. COMPARISON: Comparison is made with prior study October 19, 2021 and August 04, 2020. FINDINGS: Breast Composition: The breasts are heterogeneously dense, which may obscure small masses. There are no dominant masses or suspicious calcifications. Stable small benign-appearing bilateral axillary lymph nodes. A tissue clip marker is once again seen in the upper lateral aspect of the right breast in comparison with prior right stereotactic breast biopsy. No other significant abnormalities are identified. There has been no significant change since the prior study. BI/SCRN MAMM (CAD)W/KIERA BILAT IMPRESSION: Stable bilateral screening mammogram. Yearly follow-up mammogram recommended. (A) ASSESSMENT CATEGORY: BIRADS Category 2: Benign. A letter regarding these results will be sent to the patient by the facility within 30 days. Approximately 10% of breast cancers are not detected by mammography. A normal mammogram should not delay biopsy of a clinically suspicious abnormality. [id number] Electronically Signed: Alexandro Ghosh MD at 12:37 EDT ,
--- NOTE | 2023-07-06 10:40 | BD_ITS ---
STUDY: DUAL ENERGY X-RAY ABSORPTIOMETRY / DXA REASON FOR EXAM: Female, 67 years old. Osteoporosis TECHNIQUE: Bone Mineral Density (BMD) measurements of lumbar spine and bilateral hips were obtained. COMPARISON: Comparison is made with prior study dated August 04, 2020. FINDINGS: Lumbar Spine (L1-L4): g/cm2 (0.750) / T-score (-2.8) / Z-score (-0.7) Findings are suggestive of osteoporosis with a high fracture risk. Left Femur Total: g/cm2 (0.771) / T-score (-1.4) / Z-score (0.1) Left Femoral Neck: g/cm2 (0.516) / T-score (-3.0) / Z-score (-1.2) Right Femur Total: g/cm2 (0.772) / T-score (-1.4) / Z-score (0.1) Right Femoral Neck: g/cm2 (0.542) / T-score (-2.8) / Z-score (-1.0) The T-Scores on the most recent prior examination were: Lumbar Spine (L1-L4): There has been worsening of bone density since the previous examination. Left Femur Total: which represents an improvement of 3.4%. Right Femur Total: which represents an improvement of 6.5%. BD/Dexa Bone Density Study IMPRESSION: The patient is considered osteoporotic as outlined below according to World [place] Organization (WHO) criteria with a high fracture risk. There has been improvement of bone density since the previous examination. Reference Information: The T-score is the number of standard deviations above or below the standard which is normal for young adults at their peak bone mineral density. The World Health Organization (WHO) interprets the T-scores as follows: Above -1 Normal bone density Between -1 and -2.5 Osteopenia Equal to / or below -2.5 Osteoporosis As a practical clinical guideline, osteopenia may be graded as follows: Mild -1 through -1.5 Moderate -1.6 through -2.0 Severe -2.1 through -2.4 The Z-score is the number of standard deviations above or below age-matched controls. A Z-score of less than -1.5 would be considered abnormal. References: 1. NIH Osteoporosis and Related Bone Diseases www osteo.org 2. International Society for Clinical Densitometry www iscd.org 3. National Osteoporosis Foundation www nof.org Electronically Signed: Alexandro Ghosh MD at 13:22 EDT ,
[2023-07-06 18:11] LABS: Red Blood Cells-Urine 0 SEEN /hpf (0-5)
[2023-07-06 18:15] LABS: Glucose, Dipstick Normal (Normal); Ketone-Dipstick Negative (Negative); Leukocyte Esterase-Dipstick 100 /ul (Negative); Nitrite-Dipstick Positive (Negative); Occult Blood-Urine 10 /ul (Negative); Protein-Dipstick 30 mg/dl (Negative); Urine Clarity Clear (Clear); Urine Urobilinogen 12 mg/dl (Normal)
[2023-07-06 18:17] LABS: Color, Urine SEE COMMENT BELOW (Yellow); Urine Bilirubin Dipstick 6 mg/dL (Negative)
[2023-07-06 18:25] LABS: Mucous, Urine RARE /hpf (<or=2+); Squamous Epithelial Cells - UA 0-5 SEEN /hpf (5-10); White Blood Cells 10-25 SEEN /hpf (0-5)
[2023-07-06 18:26] LABS: Bacteria RARE /hpf (None Seen)
== END | disposition home or self-care (01) ==
PROVIDERS: Physician Assistant Surgical; PCP Internal Medicine; Referring Provider Internal Medicine; Visit Provider Internal Medicine
DX: Z12.31 Encounter for screening mammogram for malignant neoplasm of breast (principal); R30.0 Dysuria; M81.0 Age-related osteoporosis without current pathological fracture
CPT/HCPCS: 77063; 77067; 77080; 81001; 87086; 87088

== ENCOUNTER → 2023-10-31 | Outpatient (CLI) | payer MEDICARE, OTHER, SELFPAY ==
[2023-10-31 15:11] LABS: Absolute Lymphocyte Count 2.02 X10^3/uL (0.83-4.51); Absolute Neutrophil Count 3.5 X10^3/uL (2.0-7.7); Basophil# 0.05 X10^3/uL; Basophil% 0.8 % (0-1); Eosinophil# 0.13 X10^3/uL; Hematocrit 43.2 % (37-47); Hemoglobin 14.1 g/dL (12.0-15.0); Lymphocyte # 2.02 X10^3/ul (0.83-4.51); Lymphocyte % 31.6 % (19-41); Mean Corp Hgb Conc 32.6 g/dL (32-36); Mean Corpuscular Hgb 29.6 pg (27.0-32.0); Mean Corpuscular Volume 90.6 fL (81-99); Mean Platelet Vol. 10.3 fl (6.2-12.0); Monocyte# 0.68 X10^3/uL; Monocyte% 10.6 % (0-10); NRBC Flagged by Analyzer 0 % (0-5); Neutrophil # 3.49 X10^3/uL (2.7-7.7); Neutrophil % 54.7 % (47-70); Platelet Count 417 K/mm3 (150-450); RBC Distribution Width CV 13.5 % (11.6-14.6); RBC Distribution Width SD 45.1 fl (35.1-43.9); Red Blood Count 4.77 M/mm3 (4.2-5.4); White Blood Count 6.4 K/mm3 (4.4-11.0)
[2023-10-31 15:23] LABS: Vitamin D,25 Hydroxy 51.7 ng/mL
[2023-10-31 15:32] LABS: International Normalized Ratio 0.9; Prothrombin Time (Protime)PT. 12.5 SECONDS (11.7-14.9)
[2023-10-31 15:33] LABS: ALB/GLOB Ratio 1.1 RATIO (0.9-2.4); AST(SGOT) 24 U/L (15-37); Alanine Aminotransfer ALT/SGPT 32 U/L (13-56); Albumin, Serum 3.8 g/dL (3.2-5.0); Alkaline Phosphatase 116 U/L (45-117); Anion Gap 7 (5-15); BUN 21 mg/dL (7-18); BUN/Creat Ratio 20.4 RATIO (10-20); Calcium,Total 9.6 mg/dL (8.5-10.1); Chloride 104 mmol/L (98-107); Creatinine, Serum 1.03 mg/dL (0.55-1.02); EST Glomerular Filtration Rate 56 mL/min (>60); Est Glom Filt Rate - Afr Amer 68 mL/min (>60); Globulin 3.4 g/dL (2.2-4.2); Glucose 118 mg/dL (74-106); Partial Thromboplast Time 24.4 Seconds (24.1-36.2); Potassium 3.2 mmol/L (3.5-5.1); Protein, Total 7.2 g/dL (6.4-8.2); Sodium Level 140 mmol/L (136-145)
[2023-10-31 16:59] LABS: Hemoglobin A1c 5.9 % (3.8-5.6)
[2023-10-31 17:29] LABS: Cholesterol 225 mg/dL (200); High Density Lipoprotein 55 mg/dL; Triglycerides 191 mg/dL; Very Low Density Lipoprotein 38 mg/dL (5-40)
== END | disposition home or self-care (01) ==
LOC: BIMLAB 13:49
PROVIDERS: PCP Internal Medicine; Referring Provider Nurse Practitioner; Visit Provider Nurse Practitioner
DX: M81.0 Age-related osteoporosis without current pathological fracture (principal); I10 Essential (primary) hypertension; K06.8 Other specified disorders of gingiva and edentulous alveolar ridge; R73.03 Prediabetes
CPT/HCPCS: 80053; 80061; 82306; 83036; 85025; 85610; 85730

== ENCOUNTER → 2023-11-09 | Outpatient (CLI) | payer MEDICARE, OTHER, SELFPAY ==
--- NOTE | 2023-11-09 14:48 | RAD_ITS ---
INDICATION: Cough EXAMINATION/TECHNIQUE: X-RAY - XR Chest 1 View COMPARISON: No relevant prior comparison study available FINDINGS: LINES/DEVICES: None. LUNGS: The lungs are well expanded. No consolidation, edema or effusion. No pneumothorax. MEDIASTINUM AND CARDIOVASCULAR STRUCTURES: Cardiac silhouette not enlarged. Central airways and mediastinal contour are unremarkable. BONES AND SOFT TISSUES: No acute abnormality. RAD/Chest 1 View IMPRESSION: No acute pulmonary finding. Electronically Signed: Mike Webb MD at 23:16 EDT ,
== END | disposition home or self-care (01) ==
LOC: MTRAD 14:46
PROVIDERS: PCP Internal Medicine; Referring Provider Internal Medicine; Visit Provider Internal Medicine
DX: R05.9 Cough, unspecified (principal)
CPT/HCPCS: 71045

== ENCOUNTER → 2024-01-09 | Outpatient (CLI) | payer MEDICARE, OTHER, SELFPAY | END | disposition home or self-care (01) | LOC: SL 19:56 | PROVIDERS: PCP Internal Medicine; Referring Provider Internal Medicine; Visit Provider Internal Medicine | DX: G47.33 Obstructive sleep apnea (adult) (pediatric) (principal) | CPT/HCPCS: 95810 ==

== ENCOUNTER → 2024-03-27 | Outpatient (CLI) | payer MEDICARE, OTHER, SELFPAY ==
[2024-03-27 17:43] LABS: Anion Gap 5 (5-15); BUN 24 mg/dL (7-18); BUN/Creat Ratio 20.2 RATIO (10-20); Calcium,Total 9.6 mg/dL (8.5-10.1); Chloride 105 mmol/L (98-107); Cholesterol 217 mg/dL (200); Creatinine, Serum 1.19 mg/dL (0.55-1.02); EST Glomerular Filtration Rate 48 mL/min (>60); Est Glom Filt Rate - Afr Amer 58 mL/min (>60); Glucose 97 mg/dL (74-106); High Density Lipoprotein 60 mg/dL; Potassium 3.2 mmol/L (3.5-5.1); Sodium Level 142 mmol/L (136-145); Triglycerides 218 mg/dL; Very Low Density Lipoprotein 44 mg/dL (5-40)
== END | disposition home or self-care (01) ==
LOC: BIMLAB 15:05
PROVIDERS: PCP Internal Medicine; Referring Provider Internal Medicine; Visit Provider Internal Medicine
DX: I10 Essential (primary) hypertension (principal)
CPT/HCPCS: 36415; 80048; 80061

== ENCOUNTER → 2024-04-09 | Outpatient (CLI) | payer MEDICARE, OTHER, SELFPAY ==
[2024-04-09 13:22] LABS: Anion Gap 7 (5-15); BUN 18 mg/dL (7-18); Calcium,Total 9.2 mg/dL (8.5-10.1); Chloride 106 mmol/L (98-107); EST Glomerular Filtration Rate 66 mL/min (>60); Est Glom Filt Rate - Afr Amer 79 mL/min (>60); Glucose 121 mg/dL (74-106); Sodium Level 142 mmol/L (136-145)
== END | disposition home or self-care (01) ==
LOC: LAB 11:58
PROVIDERS: PCP Internal Medicine; Referring Provider Internal Medicine; Visit Provider Internal Medicine
DX: E87.6 Hypokalemia (principal)
CPT/HCPCS: 36415; 80048

== ENCOUNTER → 2024-04-22 | Outpatient (CLI) | payer MEDICARE, OTHER, SELFPAY ==
[2024-04-22 18:44] LABS: Anion Gap 4 (5-15); BUN 11 mg/dL (7-18); BUN/Creat Ratio 11.6 RATIO (10-20); Calcium,Total 9.2 mg/dL (8.5-10.1); Chloride 109 mmol/L (98-107); Creatinine, Serum 0.95 mg/dL (0.55-1.02); EST Glomerular Filtration Rate 62 mL/min (>60); Est Glom Filt Rate - Afr Amer 75 mL/min (>60); Glucose 137 mg/dL (74-106); Potassium 3.3 mmol/L (3.5-5.1); Sodium Level 139 mmol/L (136-145)
== END | disposition home or self-care (01) ==
LOC: MTLAB 14:32
PROVIDERS: PCP Internal Medicine; Referring Provider Internal Medicine; Visit Provider Internal Medicine
DX: I10 Essential (primary) hypertension (principal); E87.6 Hypokalemia
CPT/HCPCS: 36415; 80048

== ENCOUNTER → 2024-05-07 | Outpatient (CLI) | payer MEDICARE, OTHER, SELFPAY ==
[2024-05-07 16:56] LABS: Anion Gap 7 (5-15); BUN 12 mg/dL (7-18); BUN/Creat Ratio 12.3 RATIO (10-20); Calcium,Total 9.5 mg/dL (8.5-10.1); Chloride 109 mmol/L (98-107); Creatinine, Serum 0.98 mg/dL (0.55-1.02); EST Glomerular Filtration Rate 60 mL/min (>60); Est Glom Filt Rate - Afr Amer 72 mL/min (>60); Glucose 107 mg/dL (74-106); Potassium 3.8 mmol/L (3.5-5.1); Sodium Level 143 mmol/L (136-145)
== END | disposition home or self-care (01) ==
LOC: BIMLAB 14:24
PROVIDERS: PCP Internal Medicine; Referring Provider Internal Medicine; Visit Provider Internal Medicine
DX: E87.6 Hypokalemia (principal)
CPT/HCPCS: 36415; 80048

== ENCOUNTER → 2024-05-16 | Outpatient (CLI) | payer MEDICARE, OTHER, SELFPAY ==
[2024-05-16 17:55] LABS: Anion Gap 7 (5-15); BUN 9 mg/dL (7-18); BUN/Creat Ratio 8.4 RATIO (10-20); Calcium,Total 9.2 mg/dL (8.5-10.1); Chloride 107 mmol/L (98-107); Creatinine, Serum 1.07 mg/dL (0.55-1.02); EST Glomerular Filtration Rate 54 mL/min (>60); Est Glom Filt Rate - Afr Amer 65 mL/min (>60); Glucose 110 mg/dL (74-106); Potassium 3.6 mmol/L (3.5-5.1); Sodium Level 141 mmol/L (136-145)
== END | disposition home or self-care (01) ==
LOC: MTLAB 15:39
PROVIDERS: PCP Internal Medicine; Referring Provider Internal Medicine; Visit Provider Internal Medicine
DX: E87.6 Hypokalemia (principal)
CPT/HCPCS: 36415; 80048

== ENCOUNTER → 2024-05-30 | Outpatient (CLI) | payer MEDICARE, OTHER, SELFPAY | END | disposition home or self-care (01) | LOC: LABSPEC 14:05 | PROVIDERS: PCP Internal Medicine; Visit Provider Physician Assistant Surgical | DX: R30.0 Dysuria (principal) | CPT/HCPCS: 87077; 87086; 87088; 87186 ==

== ENCOUNTER 2024-06-02 14:51 | Emergency (ER) | payer MEDICARE, OTHER, SELFPAY ==
[2024-06-02 14:53] VITALS: BP 99/66; PULSE 109; RESP 18; TEMP 36.4; O2SAT 99; BMI 31.9
--- NOTE | 2024-06-02 15:05 | EX.ED.DYSGE1 ---
HPI History of Present Illness Chief Complaint: Hypotension [facility] Medical History Chronic cough Bronchitis Sinusitis Cough JEANNA (generalized anxiety disorder) Obesity (BMI 30-39.9) Open wound of skin GERD (gastroesophageal reflux disease) Change in bowel movement Burning with urination Vitamin deficiency Generalized muscle ache Panic disorder Major depressive disorder COVID-19 Wears glasses Depression Anxiety Sore on scalp Restless legs History of ulceration Gastric reflux Non-smoker CPAP (continuous positive airway pressure) dependence History of echocardiogram Abnormal barium swallow Hypokalemia CHANTELL (acute kidney injury) Arm pain Eye pain Difficulty swallowing Dermatitis Renal stones HPV (human papilloma virus) infection history of kidney stone removal High cholesterol HTN (hypertension) Home Medications ?Medication ?Instructions ?Recorded ?Last Taken ?Type cholecalciferol (vitamin D3) 50 2,000 unit PO BID 07/03/17 Unknown History mcg (2,000 unit) capsule calcium carbonate (Calcium 600) 600 mg PO QDAY #90 tabs 10/19/22 Unknown Rx albuterol sulfate 90 mcg/actuation 2 puff inhalation Q6H PRN 11/09/23 Unknown Rx aerosol inhaler shortness of breath or wheezing #6.7 grams amlodipine 10 mg tablet 10 mg PO DAILY #90 tabs 12/08/23 Unknown Rx losartan 100 mg tablet 100 mg PO DAILY #90 TABLETS 12/08/23 Unknown Rx clonazepam 0.5 mg tablet 0.5 mg PO DAILY PRN Anxiety #30 03/21/24 Unknown Rx tabs duloxetine 60 mg capsule,delayed 60 mg PO DAILY #90 caps 03/21/24 Unknown Rx release pantoprazole 40 mg tablet,delayed 40 mg PO DAILY #90 tabs 03/25/24 Unknown Rx release potassium chloride 20 mEq 40 meq (2 x 20 mEq) PO BID 3 03/28/24 Unknown Rx tablet,extended months #360 tabs release(part/cryst) (Klor-Con M) hydralazine 50 mg tablet 50 mg PO TID #90 tabs 05/24/24 Unknown Rx nitrofurantoin 1 cap PO Q12H 7 days #14 caps 05/30/24 Unknown Rx monohydrate/macrocrystals 100 mg capsule Allergy/AdvReac Type Severity Reaction Status Date / Time No Known Allergies Allergy Verified 06/02/24 14:53 Family History Father Alcoholism Colon cancer Heart disease Hypertension High cholesterol Grandfather Heart disease Myocardial infarction Hypertension High cholesterol Sister Schizophrenia Mental disorder psychiatric care Diabetes Other Anxiety Autoimmune disorder Depression Surgical History S/P right rotator cuff repair Hx of colonoscopy History of hemorrhoidectomy History of appendectomy History of hysterectomy History of cholecystectomy Social History household members: none current occupational status: 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 Smoking Status: Never smoker Electronic Cigarette Use: not used second hand exposure: No alcohol intake: never substance use type: does not use caffeine: Yes what type of physical activity do you participate in: walking frequency: 3-4 times per week duration: 45-60 minutes/day seatbelt use: always do you feel safe at home: Yes 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 Notes she has been struggling with elevated blood pressure and low potassium. Notes her primary care physician recently changed over her blood pressure meds. She states now she feels her blood pressure is too low. She states she woke up this morning after initiating hydralazine 50 mg last night with a severe headache. No she feels off. No she feels shaky and lightheaded. Notes her blood pressure has been lower than usual. She notes she is currently being treated for urine infection. But she states those symptoms have stabilized and is initiating antibiotic therapy. She denies fever. Denies syncope. Denies focal neurologic deficits. Denies history of brain aneurysms or intracranial hemorrhages. Patient denies sudden onset or thunderclap headache, denies maximal intensity within 1 minute, vomiting, neck pain, stiffness, changes in vision, fever, history malignancy, syncope, or seizures associated with headache. She denies chest pain, shortness of breath. Denies vomiting or diarrhea. She denies any bleeding diathesis. REVIEW OF SYSTEMS: Pertinent positives: Low blood pressure, lightheadedness, shakiness Pertinent negatives: Chest pain, shortness of breath PHYSICAL EXAM: Nursing triage notes reviewed, Vital signs reviewed Constitutional: please see mdm HENT: MMM Eyes: Pupils equal round and reactive to light, Extraocular muscles intact Neck: No stridor, no JVD, full neck ROM Lungs: Clear to auscultation, No wheezing or rales. No increased work of breathing, no conversational dyspnea, no accessory muscle use, no nasal flaring. No respiratory distress noted Heart: Regular rate and rhythm, No murmurs, No rubs and No gallops, 2+ distal pulses (radial, femoral, posterior tibial) in all extremities Abdomen: Soft, there is no tenderness, rigidity, rebound or guarding, no obvious peritoneal signs, no palpable pulsatile abdominal masses, no auscultated abdominal bruit : No CVAT Extremities: No edema Neuro: No new focal neurological deficits, cranial nerves II through XII intact, 5/5 strength in all present extremities. Intact sensation to light touch in all present extremities, 2+ reflexes bilateral patella tendons. Skin: No rash or lesions noted MEDICAL DECISION MAKING: Chief Complaint: Hypotension External records reviewed: Reviewed medications: Patient's currently on amlodipine 10 mg daily, hydralazine 50 mg 3 times daily, losartan 100 mg daily Reviewed echocardiogram from 2014 which showed ejection fraction of 65 Factors affecting care: n hypertension, hypokalemia Social determinants of health: none History obtained from others: none Consults: none [facility] Narrative: Patient was initially tachycardic at a rate of 109, had soft pressures with a blood pressure 99/66, was afebrile saturating at 99% room air exam without focal neurologic deficits. Without focal cardiopulmonary abnormalities. The patient did not appear toxic I considered the following differential diagnosis: Dehydration, distributive shock, neurogenic shock, cardiogenic shock, hemorrhagic shock, hypovolemic shock, adverse effect of medication IV, monitor placed Obtained a broad lab and imaging workup to further elucidate etiology of patient's complaints Given severe headache obtain a Noncon CT of her head Obtain additional labs images to rule out signs of significant dehydration, electrolyte disturbances, endorgan hypoperfusion, UTI. I treat the patient symptomatically with 1 L normal saline and 5 mg IV Reglan for headache control ALL IMAGES (IF OBTAINED) HAVE BEEN PERSONALLY REVIEWED AND INTERPRETED BY MYSELF. EKG with normal sinus rhythm rate of 96, left ax deviation, normal intervals, no STEMI Initial lactate elevated consistent with endorgan hypoperfusion likely secondary to hypotension CBC without leukocytosis, severe anemia, no thrombocytopenia. BMP with mild hypokalemia otherwise no significant Radha abnormalities, no sign of metabolic acidosis with a normal bicarb High-sensitivity troponin is negative, no evidence of myocardial ischemia I have personally reviewed the patient's chest x-ray. Chest x-ray is unremarkable for pulmonary edema, pneumothorax, pneumonia or focal cardiopulmonary abnormality. CT scan of the head is negative Urinalysis shows improvement. Will encourage patient continue current antimicrobial therapy. Upon reassessment patient's blood pressure improved to 113/66 after IV fluids. I suspect her presentation is related to new blood pressure medication initiation. Encouraged her to discontinue hydralazine until she follows with her primary care physician. Strict return precautions were discussed The patient and/or family, caregivers express understanding. The patient and/or family, caregivers agrees with the plan. Shared decision making: I will have a discussion with the patient and or visitors regarding risk/benefits of further testing or admission. They will be made aware of of the risk/benefits inherent in this decision they will be given the opportunity to voice understanding. Total critical care time today provided was at least 0 minutes. This excludes separately billable procedures. Critical care time (if documented) is secondary to the patient having high probability of clinically significant/life threatening deterioration in the patient's condition which required my urgent intervention. Impression: 1. Hypotension 2. Side effect of blood pressure medication Dispo: Discharge home This note was generated with [employer] dictation software. It may contain incorrect words, spelling, and punctuation that were not noted in review of the chart prior to signing. Lab Data Labs: Laboratory Results - last 24 hr 06/02/24 06/02/24 06/02/24 15:32 17:39 17:58 WBC 7.4 RBC 4.84 Hgb 14.2 Hct 43.3 MCV 89.5 MCH 29.3 MCHC 32.8 RDW Std Deviation 45.1 H RDW Coeff of Lucy 14.0 Plt Count 388 MPV 10.1 Immature Gran % (Auto) 0.400 Neut % (Auto) 64.7 Lymph % (Auto) 23.1 [place] % (Auto) 9.4 Eos % (Auto) 1.5 Baso % (Auto) 0.9 Absolute Neuts (auto) 4.8 Absolute Lymphs (auto) 1.71 Nucleated RBC % 0 Sodium 142 Potassium 3.2 L Chloride 110 H Carbon Dioxide 25.0 Anion Gap 8 BUN 12 Creatinine 1.10 H Estim Creat Clear Calc 46.40 Est GFR (MDRD) Af Amer 63 Est GFR (MDRD) Non-Af 52 L BUN/Creatinine Ratio 10.9 Glucose 182 H Lactic Acid 2.9 H* 1.4 Calcium 9.1 Troponin I High Sens 14 Urine Color Yellow Urine Clarity Clear Urine pH 7.0 Ur Specific Donalds 1.010 Urine Protein 30 H Urine Glucose (UA) Normal Urine Ketones Negative Urine Occult Blood Negative Urine Nitrite Negative Urine Bilirubin Negative Urine Urobilinogen Normal Ur Leukocyte Esterase 25 H Urine RBC 0 SEEN Urine WBC 0-5 SEEN Ur Squamous Epith Cells 0-5 SEEN Urine Bacteria RARE Hyaline Casts 0-5 SEEN Urine Mucus 0 SEEN Radiography Diagnostic Testing: Clinical Impression(s) from Imaging Studies Brain CT 06/02/24 15:22 IMPRESSION: No acute intracranial abnormality Reading [facility] Chest X-Ray 06/02/24 16:05 IMPRESSION: No radiographic evidence of acute cardiopulmonary disease. Reading Location: [facility] Discharge Plan Triage Chief Complaint: Hypotension ED Provider: Arian Gary Dx/Rx/DC Orders Instructions: ED Low Blood Pressure, All Causes Prescriptions: No Action cholecalciferol (vitamin D3) 2,000 unit capsule 2,000 unit PO BID calcium carbonate [Calcium 600] 600 mg calcium (1,500 mg) tablet 600 mg PO QDAY Qty: 90 1RF albuterol sulfate 90 mcg/actuation HFA aerosol inhaler 2 puff inhalation Q6H PRN (Reason: shortness of breath or wheezing) Qty: 6.7 1RF duloxetine 60 mg capsule,delayed release(DR/EC) 60 mg PO DAILY Qty: 90 1RF clonazepam 0.5 mg tablet 0.5 mg PO DAILY PRN (Reason: Anxiety) Qty: 30 1RF nitrofurantoin monohyd/m-cryst 100 mg capsule 1 cap PO Q12H 7 Days Qty: 14 0RF Rx Instructions: administer with a meal/food; swallow whole; do not open, crush, dissolve , or chew amlodipine 10 mg tablet 10 mg PO DAILY Qty: 90 1RF losartan 100 mg tablet 100 mg PO DAILY Qty: 90 1RF pantoprazole 40 mg tablet,delayed release (DR/EC) 40 mg PO DAILY Qty: 90 1RF potassium chloride [Klor-Con M20] 20 mEq tablet,ER particles/crystals 40 meq PO BID 90 Days Qty: 360 2RF hydralazine 50 mg tablet 50 mg PO TID Qty: 90 1RF Rx Instructions: Take 3 times daily for 2 weeks then increase to 1 tablet 3 times daily. Primary Care Provider: Aissatou Hu Referrals: Aissatou Hu MD [Primary Care Provider] - Activity Restrictions/Additional Instructions: Thank you for trusting us with your care today! Your blood pressure improved after fluids which suggest likely blood pressure medication related low blood pressure. There is no sign of heart issues, infectious issues, significant anemia. Your potassium level slightly low. You are given a dose of potassium here to correct this abnormality Please take Tylenol (2 pills, 650 mg), ibuprofen (2 pills, 400 mg) every 6 hours as needed for pain and fever control. Please discontinue taking hydralazine until you follow with your primary care physician for further blood pressure medication adjustments Please return to the emergency department if your symptoms change or worsen. Please follow with your primary care physician for further outpatient evaluation and management. Print Language: Spanish Disposition Disposition: Home, Self Care Discharge Date/Time: 06/02/24 19:10
--- NOTE | 2024-06-02 15:22 | EKG12_ITS ---
Test Reason : HYPOTENSION Blood Pressure : */* mmHG Vent. Rate : 96 BPM Atrial Rate : 96 BPM P-R Int : 138 ms QRS Dur : 72 ms QT Int : 382 ms P-R-T Axes : 24 -18 64 degrees QTcB Int : 482 ms Normal sinus rhythm with sinus arrhythmia Normal ECG Confirmed by Huey Solorzano ([id number]), film editor LAKHWINDER VILLAGOMEZ ([id number]) on 06/05/2024 6:03:47 AM Referred By: Arian Gary Confirmed By: Huey Solorzano
--- NOTE | 2024-06-02 15:22 | CT_ITS ---
EXAM: BRAIN/HEAD WITHOUT CONTRAST CLINICAL HISTORY: Severe headache COMPARISON: None. TECHNIQUE: Noncontrast images of the head with multiplanar reconstructions. Dose reduction techniques were used including intermediate exposure control (AEC),iterative reconstruction technique, and/or mA and/or KV dose adjustments based on patient's size. FINDINGS: CT HEAD FINDINGS: No acute intracranial hemorrhage, mass, mass effect, midline shift or pathologic extra-axial fluid collection. No hydrocephalus. Age- appropriate cerebral volume and white matter. Visualized paranasal sinuses and mastoid air cells are clear. The calvarium is grossly intact. CT/Brain/Head without Contrast IMPRESSION: No acute intracranial abnormality Reading Location: [facility]
[2024-06-02 15:45] LABS: Absolute Lymphocyte Count 1.71 X10^3/uL (0.83-4.51); Absolute Neutrophil Count 4.8 X10^3/uL (2.0-7.7); Basophil# 0.07 X10^3/uL; Basophil% 0.9 % (0-1); Eosinophil# 0.11 X10^3/uL; Eosinophils% 1.5 % (0-5); Hematocrit 43.3 % (37-47); Hemoglobin 14.2 g/dL (12.0-15.0); Lymphocyte # 1.71 X10^3/ul (0.83-4.51); Lymphocyte % 23.1 % (19-41); Mean Corp Hgb Conc 32.8 g/dL (32-36); Mean Corpuscular Hgb 29.3 pg (27.0-32.0); Mean Corpuscular Volume 89.5 fL (81-99); Mean Platelet Vol. 10.1 fl (6.2-12.0); Monocyte% 9.4 % (0-10); NRBC Flagged by Analyzer 0 % (0-5); Neutrophil # 4.79 X10^3/uL (2.7-7.7); Neutrophil % 64.7 % (47-70); Platelet Count 388 K/mm3 (150-450); RBC Distribution Width SD 45.1 fl (35.1-43.9); Red Blood Count 4.84 M/mm3 (4.2-5.4); White Blood Count 7.4 K/mm3 (4.4-11.0)
[2024-06-02] MEDS: 0.9% Normal Saline (1000mL) 1,000 ML 1000 ML IV (15:46)
[2024-06-02] MEDS: Metoclopramide 10 MG/2 ML Vial 5 MG IV (15:46)
[2024-06-02 16:02] LABS: Anion Gap 8 (5-15); BUN 12 mg/dL (7-18); BUN/Creat Ratio 10.9 RATIO (10-20); Calcium,Total 9.1 mg/dL (8.5-10.1); Chloride 110 mmol/L (98-107); EST Glomerular Filtration Rate 52 mL/min (>60); Est Glom Filt Rate - Afr Amer 63 mL/min (>60); Glucose 182 mg/dL (74-106); Potassium 3.2 mmol/L (3.5-5.1); Sodium Level 142 mmol/L (136-145); Troponin-I HS 14 pg/mL (3.0-54.0)
--- NOTE | 2024-06-02 16:05 | RAD_ITS ---
PROCEDURE: CHEST 1 VIEW (PORTABLE) REASON FOR EXAM: Hypotension rule out pneumonia TECHNIQUE: Frontal and lateral views of the chest. COMPARISON: 11/09/2023 FINDINGS: The heart size is normal. The mediastinal contour is unremarkable. The lungs are clear. The bones are unremarkable. RAD/Chest 1 View (Portable) IMPRESSION: No radiographic evidence of acute cardiopulmonary disease. Reading Location: [facility]
[2024-06-02 16:24] LABS: Lactic Acid 2.9 mmol/L (0.4-1.9)
[2024-06-02] MEDS: 0.9% Normal Saline (1000mL) 1,000 ML 999 ML IV (16:52)
[2024-06-02 16:56] VITALS: BP 113/66; PULSE 86; RESP 16; O2SAT 100
[2024-06-02 17:47] LABS: Mucous, Urine 0 SEEN /hpf (<or=2+)
[2024-06-02 17:52] LABS: Color, Urine Yellow (Yellow); Glucose, Dipstick Normal (Normal); Ketone-Dipstick Negative (Negative); Leukocyte Esterase-Dipstick 25 /ul (Negative); Nitrite-Dipstick Negative (Negative); Occult Blood-Urine Negative /ul (Negative); Protein-Dipstick 30 mg/dl (Negative); Urine Bilirubin Dipstick Negative (Negative); Urine Clarity Clear (Clear); Urine Urobilinogen Normal (Normal)
[2024-06-02] MEDS: Potassium Chloride Oral Tablet 20 MEQ 40 MEQ PO (17:53)
[2024-06-02 18:00] VITALS: BP 149/82; PULSE 81; RESP 16; O2SAT 96
[2024-06-02 18:21] LABS: Hyaline Cast 0-5 SEEN /lpf (0-5)
[2024-06-02 18:22] LABS: Bacteria RARE /hpf (None Seen); Red Blood Cells-Urine 0 SEEN /hpf (0-5); Squamous Epithelial Cells - UA 0-5 SEEN /hpf (5-10); White Blood Cells 0-5 SEEN /hpf (0-5)
[2024-06-02 18:45] LABS: Lactic Acid 1.4 mmol/L (0.4-1.9)
[2024-06-02 19:09] VITALS: BP 149/82; PULSE 77; RESP 16; TEMP 36.7; O2SAT 98
[2024-06-02 19:35] LABS: Reflex Lactate? Y
== END 2024-06-02 19:10 | disposition home or self-care (01) ==
PROVIDERS: Emergency Provider Emergency Medicine; PCP Internal Medicine; Referring Provider Emergency Medicine; Visit Provider Emergency Medicine
DX: I95.2 Hypotension due to drugs (principal); E87.6 Hypokalemia; T46.5X5A Adverse effect of other antihypertensive drugs, initial encounter; I10 Essential (primary) hypertension; E78.00 Pure hypercholesterolemia, unspecified; Z79.899 Other long term (current) drug therapy
CPT/HCPCS: 70450; 71045; 80048; 81001; 83605; 84484; 85025; 93005; 96361; 96374; 99283; A4216

== ENCOUNTER → 2024-08-07 | Outpatient (CLI) | payer MEDICARE, OTHER, SELFPAY ==
[2024-08-07 11:19] LABS: Bacteria 0 SEEN /hpf (None Seen); Mucous, Urine 0 SEEN /hpf (<or=2+); Red Blood Cells-Urine 0 SEEN /hpf (0-5)
[2024-08-07 13:04] LABS: Color, Urine Yellow (Yellow); Glucose, Dipstick Normal (Normal); Ketone-Dipstick Negative (Negative); Leukocyte Esterase-Dipstick 100 /ul (Negative); Nitrite-Dipstick Negative (Negative); Occult Blood-Urine 25 /ul (Negative); Urine Bilirubin Dipstick Negative (Negative); Urine Clarity Sl. Cloudy (Clear); Urine Urobilinogen Normal (Normal); Urine pH 6.5 (5.0 - 8.0)
[2024-08-07 13:18] LABS: Squamous Epithelial Cells - UA 0-5 SEEN /hpf (5-10); White Blood Cells 0-5 SEEN /hpf (0-5)
[2024-08-07 13:18] LABS: Anion Gap 10 (5-15); BUN 15 mg/dL (4-19); BUN/Creat Ratio 16.8 RATIO (10-20); Carbon Dioxide 25.8 mmol/L (21.0-32.0); Chloride 105 mmol/L (98-108); Creatinine, Serum 0.89 mg/dL (0.70-1.20); EST Glomerular Filtration Rate 70 (>60); Glucose 115 mg/dL (70-99); Potassium 3.4 mmol/L (3.3-5.1); Sodium Level 141 mmol/L (133-145)
[2024-08-07 13:19] LABS: Calcium Oxalate Crystals Ur 3+ /hpf (<or=2+); Hyaline Cast 0-5 SEEN /lpf (0-5)
[2024-08-08 16:30] LABS: Protein-Dipstick 100 mg/dl (Negative)
== END | disposition home or self-care (01) ==
LOC: BIMLAB 10:57
PROVIDERS: PCP Internal Medicine; Referring Provider Internal Medicine; Visit Provider Internal Medicine
DX: R35.0 Frequency of micturition (principal); I10 Essential (primary) hypertension
CPT/HCPCS: 36415; 80048; 81001

== ENCOUNTER 2024-11-06 01:20 | Emergency (ER) | payer MEDICARE, OTHER, SELFPAY ==
[2024-11-06 01:22] VITALS: BP 159/82; PULSE 88; RESP 18; TEMP 36.6; O2SAT 98; BMI 33.2
[2024-11-06 01:24] VITALS: BP 159/82; PULSE 88; RESP 18; TEMP 36.6; O2SAT 98
--- NOTE | 2024-11-06 01:35 | EDS_ITS ---
HPI HPI - GI History of Present Illness Chief Complaint: Complaint Informant: patient Narrative Narrative: 76-year-old female states 3 to 4 days ago she started having suprapubic discomfort along with urinary frequency, hesitancy, urgency. No burning dysuria or hematuria. About a day later she started developing right flank pain. All this pain is progressively worsened. She feels like the suprapubic pain is down up in vaginal area. Nausea but no vomiting. No fevers or chills. Some diarrhea today no blood. States she has had stones in the past and needed them surgically removed at times, she has not had one in a long time and states this was not suddenly severe like stones of been in the past. [facility] Medical History Proteinuria Urinary frequency Chronic cough Bronchitis Sinusitis Cough JEANNA (generalized anxiety disorder) Obesity (BMI 30-39.9) Open wound of skin GERD (gastroesophageal reflux disease) Change in bowel movement Burning with urination Vitamin deficiency Generalized muscle ache Panic disorder Major depressive disorder COVID-19 Wears glasses Depression Anxiety Sore on scalp Restless legs History of ulceration Gastric reflux Non-smoker CPAP (continuous positive airway pressure) dependence History of echocardiogram Abnormal barium swallow Hypokalemia CHANTELL (acute kidney injury) Arm pain Eye pain Difficulty swallowing Dermatitis Renal stones HPV (human papilloma virus) infection history of kidney stone removal High cholesterol HTN (hypertension) Home Medications ?Medication ?Instructions ?Recorded ?Last Taken ?Type cholecalciferol (vitamin D3) 50 2,000 unit PO BID 06/09 09/25 Unknown History mcg (2,000 unit) capsule calcium carbonate (Calcium 600) 600 mg PO QDAY #90 tab s 10/19/22 Unknown Rx albuterol sulfate 90 mcg/actuation 2 puff inhalation Q 6H PRN 11/09/23 Unknown Rx aerosol inhaler shortness of breath or wheez ing #6.7 grams potassium chloride 20 mEq 40 meq (2 x 20 mEq) PO BID 3 03/28/24 Unknown Rx tablet,extended months #360 tabs release(part/cryst) (Klor-Con M) losartan 100 mg tablet 100 mg PO DAILY #90 TABLETS 06/05/24 Unknown Rx metoprolol succinate 50 mg 50 mg PO QDAY #90 tabs 07/11 Unknown Rx tablet,extended release 24 hr clonazepam 0.5 mg tablet 0.5 mg PO DAILY PRN Anxiety #30 09/25/24 Unknown Rx tabs duloxetine 60 mg capsule,delayed 60 mg PO DAILY #90 ca ps 09/25/24 Unknown Rx release amlodipine 10 mg tablet 10 mg PO DAILY #90 tabs 09/08 01/02 Unknown Rx pantoprazole 40 mg tablet,delayed 40 mg PO DAILY #90 t abs 09/26/24 Unknown Rx release cephalexin 500 mg capsule 500 mg PO Q6 #28 CAPSULES Unknown Rx oxycodone-acetaminophen 5 mg-325 1 tab PO Q6H PRN PRN Pain 4 days 11/06/24 Unknown Rx mg tablet #15 TABLETS Allergy/AdvReac Type Severity Reaction Status Date / Time No Known Allergies Allergy Verified 11/06/24 01:22 Family History Father Alcoholism Colon cancer Heart disease Hypertension High cholesterol Grandfather Heart disease Myocardial infarction Hypertension High cholesterol Sister Schizophrenia Mental disorder psychiatric care Diabetes Other Anxiety Autoimmune disorder Depression Surgical History S/P right rotator cuff repair Hx of colonoscopy History of hemorrhoidectomy History of appendectomy History of hysterectomy History of cholecystectomy Social History household members: none current occupational status: 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 Smoking Status: Never smoker Electronic Cigarette Use: not used second hand exposure: No alcohol intake: never substance use type: does not use caffeine: Yes what type of physical activity do you participate in: walking frequency: 3-4 times per week duration: 45-60 minutes/day seatbelt use: always do you feel safe at home: Yes additional social history: 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) ROS ROS ED Constitutional Constitutional ED: Denies chills or fever(s) Eyes Eyes: Denies change in vision or diplopia ENT ENT ED: Denies rhinorrhea or sore throat Cardiovascular Cardiovascular: Denies chest pain or palpitations Respiratory/Chest Respiratory/Chest: Denies cough or dyspnea Gastrointestinal Gastrointestinal: Reports abdominal pain and nausea; Denies diarrhea or vomiting Genitourinary Genitourinary ED: Reports as per HPI, flank pain, urinary frequency, urinary hesitancy and urinary urgency; Denies dysuria, hematuria, vaginal bleeding or vaginal discharge Musculoskeletal Musculoskeletal: Reports back pain; Denies neck pain Integumentary Denies abscess or rash Neurologic Neurologic: Denies headache(s), paresthesias or weakness Psychiatric Psychiatric: Denies suicidal thoughts EXAM Physical Exam Const Vital Signs: 11/06/24 01:22 11/06/24 01:24 11/06/24 02:24 Temperature 97.9 F 97.9 F 98.1 F Temperature Source Oral Oral Oral Pulse Rate 88 88 81 Respiratory Rate 18 18 16 Blood Pressure 159/82 H 159/82 H 168/85 H Blood Pressure Mean 107 107 112 Pulse Ox 98 98 94 Oxygen Delivery Method Room Air Room Air Room Air Positive well nourished and well developed General Appearance ED: well developed and NAD HEENT Reports moist mucous membranes normocephalic and atraumatic Eyes PERRL and EOMs intact bilaterally Neck full ROM and supple Resp normal respiratory effort and clear to auscultation bilaterally Cardio regular rate, regular rhythm and no murmurs GI non-distended GI Narrative: Tender suprapubic and left lower quadrant no guarding or rebound or pulsatile mass. Right side is nontender throughout. Auscultation: normoactive bowel sounds Palpation: soft Speculum Exam - Vagina: Negative for vaginal bleeding or vaginal discharge Back/Spine no CVA tenderness General Back: other FROM Extremity normal to inspection General Extremety ED: Negative for edema, pulses abnormal or tenderness General Extremity: Negative for edema or pulses abnormal Neuro oriented x3, CN's II-XII intact bilaterally and no sensory deficits noted Sensorium / Orientation: awake and alert Motor Exam: strength 5/5 throughout Skin no rashes or lesions noted and no wounds MDM MDM MDM Narrative Medical decision making narrative: My suspicion is that the patient is developing an upper urinary tract infection. Her vital signs are unremarkable she is well-appearing and ambulates without difficulty or limitation. Differential includes an obstructive uropathy is obtaining a CT, but given her exam the differential also includes diverticulitis. CT without contrast was obtained, given that stones I think more likely than diverticulitis; I reviewed the images and the report which I agree with, it is consistent with 3 right UVJ stones, the maximum being 3 mm. She does have some hydronephrosis explaining her right flank pain. Her urine is suspicious for urinary tract infection as well although the findings are mild, with 5-10 white blood cells and 25 leukocyte esterase she is positive for nitrite. Sending this for culture, renal function and white blood count are normal, she is not septic, she is doing well after a dose of morphine, and stable for discharge home. Was going to put her on Cipro after a dose of IV Rocephin, however it interacts with her Cymbalta. Bactrim interacts with other medications she is on. Therefore we will place her on cephalexin, and have her follow-up with urology if she does not pass the stones in a timely fashion, we discussed reasons to return here to the ER. Lab Data Attestation: I reviewed the patient's lab results. Labs: Laboratory Results - last 24 hr 11/06/24 11/06/24 01:30 02:05 WBC 9.1 RBC 4.68 Hgb 14.1 Hct 43.5 MCV 92.9 MCH 30.1 MCHC 32.4 RDW Std Deviation 46.6 H RDW Coeff of Lucy 13.8 Plt Count 365 MPV 10.3 Immature Gran % (Auto) 0.400 Neut % (Auto) 61.0 Lymph % (Auto) 26.8 [place] % (Auto) 8.6 Eos % (Auto) 2.4 Baso % (Auto) 0.8 Absolute Neuts (auto) 5.5 Absolute Lymphs (auto) 2.43 Nucleated RBC % 0 Sodium 141 Potassium 3.5 Chloride 106 Carbon Dioxide 21.8 Anion Gap 13 BUN 18 Creatinine 1.16 Estim Creat Clear Calc 44.90 L Est GFR (MDRD) Non-Af 51 L BUN/Creatinine Ratio 15.8 Glucose 155 H Calcium 9.6 Urine Color Kat Urine Clarity Clear Urine pH 6.0 Ur Specific [place] 1.020 Urine Protein 30 H Urine Glucose (UA) 100 H Urine Ketones Negative Urine Occult Blood 25 H Urine Nitrite Positive H Urine Bilirubin 6 H Urine Urobilinogen 8 H Ur Leukocyte Esterase 25 H Urine RBC 0-5 SEEN Urine WBC 5-10 SEEN Ur Squamous Epith Cells 0-5 SEEN Urine Bacteria 1+ Urine Mucus 0 SEEN Radiography Diagnostic Testing: Clinical Impression(s) from Imaging Studies Abdomen/Pelvis CT 11/06/24 01:35 IMPRESSION: There are 3 distal right ureteral stones, measuring up to 3 mm, moderate hydronephrosis. Reading Location: [place] [id number] Discharge Plan Triage Chief Complaint: Complaint ED Provider: Conner Wetzel Dx/Rx/DC Orders Clinical Impression: Renal colic on right side, Ureterolithiasis, Complicated urinary tract infection Instructions: ED Urine Strainer, ED Kidney Stone with Pain Prescriptions: New cephalexin 500 mg capsule 500 mg PO Q6 Qty: 28 0RF oxycodone-acetaminophen 5-325 mg tablet 1 tab PO Q6H PRN PRN (Reason: Pain) 4 Days Qty: 15 0RF No Action cholecalciferol (vitamin D3) 2,000 unit capsule 2,000 unit PO BID calcium carbonate [Calcium 600] 600 mg calcium (1,500 mg) tablet 600 mg PO QDAY Qty: 90 1RF albuterol sulfate 90 mcg/actuation HFA aerosol inhaler 2 puff inhalation Q6H PRN (Reason: shortness of breath or wheezing) Qty: 6.7 1RF duloxetine 60 mg capsule,delayed release(DR/EC) 60 mg PO DAILY Qty: 90 1RF clonazepam 0.5 mg tablet 0.5 mg PO DAILY PRN (Reason: Anxiety) Qty: 30 2RF metoprolol succinate 50 mg tablet extended release 24 hr 50 mg PO QDAY Qty: 90 1RF potassium chloride [Klor-Con M20] 20 mEq tablet,ER particles/crystals 40 meq PO BID 90 Days Qty: 360 2RF losartan 100 mg tablet 100 mg PO DAILY Qty: 90 1RF amlodipine 10 mg tablet 10 mg PO DAILY Qty: 90 1RF pantoprazole 40 mg tablet,delayed release (DR/EC) 40 mg PO DAILY Qty: 90 1RF Primary Care Provider: Aissatou Hu Referrals: Nery Emerson MD [Med Staff - Active Staff] - 1 Week if not improving Print Language: Tamazight Disposition Disposition: Home, Self Care
--- NOTE | 2024-11-06 01:35 | CT_ITS ---
PROCEDURE: ABDOMEN/PELVIS WITHOUT CONT 11/06/2024 REASON FOR EXAM: PAIN SUPRAPUBIC AND RIGHT FLANK, TENDER LLQ TECHNIQUE: ABDOMEN/PELVIS WITHOUT CONT Noncontrast technique limits evaluation of the abdominal and pelvic viscera. Coronal and Sagittal reconstruction series were provided. One or more dose reduction techniques were used (e.g., Automated exposure control, adjustment of the mA and/or kV according to patient size, use of iterative reconstruction technique). RADIATION DOSE SUMMARY: CTDlvol: 11 mGy DLP: 562 mGycm COMPARISON: 12/29/2017 FINDINGS: Under aerated lung bases. Normal heart size. Status post cholecystectomy. Unremarkable liver, pancreas, spleen, right adrenal gland. There is a 1 cm low-density left adrenal nodule favoring adenoma. There are bilateral renal calcifications measuring up to 7 mm. The right kidney is swollen. There is moderate hydronephrosis. There are 3 distal right ureteral stones, largest 3 mm. Unremarkable bladder. Status post hysterectomy. No retroperitoneal or pelvic adenopathy. No free air. Small hiatal hernia. Nondistended bowel. Status post appendectomy. No acute large bowel findings. Lumbar spine degeneration. CT/Abdomen/Pelvis without Cont IMPRESSION: There are 3 distal right ureteral stones, measuring up to 3 mm, moderate hydron ephrosis. [facility]
--- OUTSIDE RECORDS SUMMARY | 2024-11-06 01:47 | XMS RPT_ITS | CCD ---
Author Organization [facility] Care Team Providers Care Earth Science Professor Name Role Phone Radha Baltazar LPN N Unavailable Raul Spencer Unavailable Ferny Solorzano PA-C Unavailable Radha Baltazar LPN N Unavailable Radha Baltazar LPN N Unavailable Raul Spencer Unavailable Dr. Aissatou Hu Primary Care Provider Dr. Aissatou Hu Attending Provider [phone] Dr. Aissatou Hu Referring Provider [phone] Duc DC, HAND WEAVER-C Haley Samayoa Attending Provider Dr. Aissatou Hu Primary Care Provider [phone] Dr. Aissatou Hu Referring Provider [phone] Dr. Issa Lim Attending Provider [phone] Dr. Issa Lim Other Provider SIMBA Spencer Attending Provider Olediliae, Efewongbe Primary Care Unavailable Raul Mazariegos Attending Unavailable Oleghe, Efewongbe Referring Unavailable Oleghe, Efewongbe Primary Care Unavailable Oleghe, Efewongbe Attending Unavailable Oleghe, Efewongbe Primary Care Unavailable Raul Mazariegos Attending Unavailable Oleghe, Efewongbe Attending Unavailable Oleghe, Efewongbe Referring Unavailable Oleghe, Efewongbe Primary Care Unavailable Oleghe, Efewongbe Referring Unavailable Oleghe, Efewongbe Primary Care Unavailable Oleghe, Efewongbe Attending Unavailable Oleghe, Efewongbe Primary Care Unavailable Oleghe, Efewongbe Referring Unavailable Oleghe, Efewongbe Attending Unavailable Oleghe, Efewongbe Primary Care Unavailable Oleghe, Efewongbe Referring Unavailable Oleghe, Efewongbe Attending Unavailable Cookie Arian Referring Unavailable Cookie Arian Attending Unavailable Oleghe, Efewongbe Primary Care Unavailable Friend, Issa Attending Unavailable Oleghe, Efewongbe Primary Care Unavailable Oleghe, Efewongbe Referring Unavailable Oleghe, Efewongbe Primary Care Unavailable Raul aMzariegos Attending Unavailable Julian Sanchez Attending Unavailable Oleghe, Efewongbe Referring Unavailable Oleghe, Efewongbe Primary Care Unavailable Oleghe, Efewongbe Primary Care Unavailable Oleghe, Efewongbe Referring Unavailable Oleghe, Efewongbe Attending Unavailable Oleghe, Efewongbe Referring Unavailable Friend, Issa Attending Unavailable Oleghe, Efewongbe Primary Care Unavailable Oleghe, Efewongbe Attending Unavailable Oleghe, Efewongbe Referring Unavailable Oleghe, Efewongbe Primary Care Unavailable Oleghe, Efewongbe Primary Care Unavailable Oleghe, Efewongbe Referring Unavailable Oleghe, Efewongbe Attending Unavailable Oleghe, Efewongbe Primary Care Unavailable Oleghe, Efewongbe Referring Unavailable Oleghe, Efewongbe Attending Unavailable Radha Grimes Referring Unavailable Radha Grimes Attending Unavailable Oleghe, Efewongbe Primary Care Unavailable Julian Sanchez Attending Unavailable Oleghe, Efewongbe Primary Care Unavailable Oleghe, Efewongbe Attending Unavailable Oleghe, Efewongbe Referring Unavailable Oleghe, Efewongbe Primary Care Unavailable Oleghe, Efewongbe Referring Unavailable Oleghe, Efewongbe Primary Care Unavailable Oleghe, Efewongbe Attending Unavailable Oleghe, Efewongbe Referring Unavailable Oleghe, Efewongbe Primary Care Unavailable Oleghe, Efewongbe Attending Unavailable Oleghe, Efewongbe Primary Care Unavailable Raul Mazariegos Attending Unavailable Aissatou Hu Attending Unavailable Aissatou Hu Referring Unavailable Aissatou Hu Primary Care Unavailable Aissatou Hu Primary Care Unavailable Raul Mazariegos Attending Unavailable Aissatou Hu Primary Care Unavailable Aissatou Hu Referring Unavailable Aissatou Hu Attending Unavailable Allergies Allergy Classification Reported Allergen(s) Allergy Type Date of Onset Reaction(s) Facility (6 sources) sulfamethoxazole / trimethoprim drug allergy 7 Facial and lip swelling. Headache [facility] Work Phone: Medications Current Medications Medication Drug Class(es) Dates Sig (Normalized) Sig (Original) atorvastatin 20 mg oral tablet (20 sources) HMG-CoA Reductase Inhibitor Start: 07-03-2017 End: 11-17-2021 take 20 mg by mouth once daily Atorvastatin Active 20 MG PO DAILY November 17, 2021 1:26pm Start: 10-08-2016 ATORVASTATIN C ALCIUM 10 MG TABS as directed ATORVASTATIN CALCIUM [id number] Ferny Solorzano PA-C Start: 01-17-2014 End: 07-03-2017 take 20 mg by mouth once daily Atorvastatin Discontinu ed 20 MG PO DAILY January 17, 2014 12:00am July 03, 2017 8:38am calcium carbonate 1500 mg oral tablet (6 sources) Start: 07-03-2017 take 1 tablet by mouth once daily Calcium Carbonate (Calcium 600) 600 mg calcium (1,500 mg) tablet Active 600 MG PO daily July 03, 2017 12:00am cholecalciferol 0.05 mg oral capsule (6 sources) Vitamin D Start: 07-03-2017 take 2000 [IU] by mouth twice daily Cholecalciferol (Vitamin D3) Active 2000 UNIT PO TWICE A DAY July 03, 2017 12:00am clonazePAM 0.5 mg oral tablet (6 sources) Benzodiazepine Start: 10-16-2018 take 0.5 mg by mouth once daily Clonazepam Active 0.5 MG PO DAILY October 16, 2018 12:00am dexamethasone 6 mg oral tablet (1 source) Corticosteroid Start: 11-04-2021 take 1 tablet by mouth once daily Dexamethasone (Decadron) 6 mg tablet Active 6 MG PO DAILY November 04, 2021 12:00am DULoxetine 60 mg delayed release oral capsule (20 sources) Serotonin and Norepinephrine Reuptake Inhibitor Start: 02-06-2018 take 60 mg by mouth twice daily Duloxetine Active 60 MG PO TWICE A DAY February 06, 2018 3:04pm Start: 12-18-2017 End: 02-06-2018 take 120 mg by mouth twice daily Duloxetine Discontinued 120 MG PO TWICE A DAY December 18, 2017 3:07pm February 06, 2018 3:06pm Start: 07-03-2017 End: 12-18-2017 take 60 mg by mouth once daily Duloxetine Discontinued 60 MG PO daily October 10, 2017 9:02am December 18, 2017 3:07pm Start: 03-06-2016 End: 07-03-2017 take 20 mg by mouth twice daily Duloxetine Discontinued 20 MG PO TWICE A DAY March 06, 2016 1:00am July 03, 2017 8:39am levocetirizine dihydrochloride 5 mg oral tablet (6 sources) Histamine-1 Receptor Antagonist Start: 11-17-2020 take 1 tablet by mouth once daily in the evening Levocetirizine (Xyzal) 5 mg tablet Active 5 MG PO EVERY EVENING 60 November 17, 2020 12:00am losartan potassium 100 mg oral tablet (20 sources) Angiotensin 2 Receptor Max Start: 01-03-2018 End: 11-17-2021 take 100 mg by mouth once daily Losartan Active 100 MG PO DAILY November 17, 2021 1:26pm Start: 10-08-2016 LOSARTAN POTAS SIUM 100 MG TABS as directed LOSARTAN POTASSIUM [id number] Ferny Solorzano PA-C magnesium oxide 400 mg oral capsule (6 sources) Start: 02-26-2019 take 400 mg by mouth once daily Magnesium Oxide Active 400 MG PO DAILY February 26, 2019 1:00am pantoprazole 40 mg delayed release oral tablet (2 sources) Proton Pump Inhibitor Start: 09-28-2021 take 40 mg by mouth once daily in the morning Pantoprazole Active 40 MG PO EVERY MORNING September 28, 2021 12:00am microencapsulated potassium chloride 20 meq extended release oral tablet (20 sources) Start: 10-28-2021 Potassium Chloride (Klor-Con M20) 20 mEq tablet,ER particles/crystals Active 20 MEQ PO TWICE A DAY October 28, 2021 1:25pm Start: 07-07-2021 End: 10-28-2021 Potassium Chloride (Klor-Con M20) 20 mEq tablet,ER particles/crystals Discontinued 40 MEQ PO TWICE A DAY 360 July 12, 2021 12:17pm October 28, 2021 1:26pm Start: 01-03-2018 End: 07-07-2021 Potassium Chloride (Klor-Con M20) 20 mEq tablet,ER particles/crystals Discontinued 20 MEQ PO TWICE A DAY 180 March 09, 2020 2:16pm July 07, 2021 6:52pm Start: 12-21-2017 End: 01-03-2018 take 20 mEq by mouth once daily Potassium Chloride Discontinued 20 MEQ PO DAILY December 21, 2017 12:00am January 03, 2018 11:48am Start: 07-03-2017 End: 01-03-2018 take 10 mEq by mouth once daily Potassium Chloride Discontinued 10 MEQ PO DAILY July 03, 2017 12:00am January 03, 2018 11:48am Start: 03-09-2016 End: 07-03-2017 take 20 mEq by mouth twice daily Potassium Chloride Discontinued 20 MEQ PO TWICE A DAY March 09, 2016 1:00am July 03, 2017 8:37am Completed/Discontinued Medications Medication Drug Class(es) Dates Sig (Normalized) Sig (Original) acetaminophen 325 mg / oxyCODONE hydrochloride 5 mg oral tablet (12 sources) Opioid Agonist Start: 12-21-2017 End: 09-10-2018 take 1 tablet by mouth every six hours as needed Oxycodone-Acetamino phen Discontinued 1 TABLET PO EVERY 6 HOURS NEEDED 27 08December 21, 2017 12:00am September 10, 2018 4:05pm Start: 03-06-2016 End: 08-04-2017 take 1 tablet by mouth every four hours as needed Oxycodone-Acetaminophen Discontinued 1 TABLET PO EVERY 4 HOURS NEEDED March 06, 2016 1:00am August 04, 2017 1:56pm aMILoride hydrochloride 5 mg / hydroCHLOROthiazide 50 mg oral tablet (20 sources) Potassium-sparing Diuretic, Thiazide Diuretic Start: 01-03-2018 End: 08-19-2021 take 0.5 tablet by mouth once daily Amiloride-Hydrochlorothiazide Discontinued 0.5 TABLET PO DAILY May 05, 2020 9:24am August 19, 2021 5:04pm amLODIPine 5 mg oral tablet (20 sources) Dihydropyridine Calcium Channel Max Start: 10-16-2018 End: 02-26-2021 take 5 mg by mouth once daily Amlodipine Discontinued 5 MG PO DAILY May 05, 2020 9:24am February 26, 2021 12:37pm Start: 07-03-2017 End: 07-06-2018 take 5 mg by mouth once daily Amlodipine Discontinued 5 MG PO DAILY March 08, 2018 3:13pm July 06, 2018 12:08am Start: 03-06-2016 End: 07-03-2017 take 10 mg by mouth once daily Amlodipine Discontinued 10 MG PO DAILY March 06, 2016 1:00am July 03, 2017 8:38am AMLODIPINE-OLMESARTAN (7 sources) Dihydropyridine Calcium Channel Max, Angiotensin 2 Receptor Max Start: 10-08-2016 NICOLE 10-20 MG TABS as directed AMLODIPINE-OLMESARTAN [id number] Ferny Solorzano PA-C Start: 10-08-2016 NICOLE 10-20 MG TABS as directed AMLODIPINE- OLMESARTAN [id number] Ferny Solorzano PA-C amoxicillin 500 mg oral tablet (1 source) Penicillin-class Antibacterial Start: 11-04-2016 End: 11-14-2016 AMOXICILLIN 500 MG TABS Take one tab every 12 hours AMOXICILLIN [id number] Julian COTTRELL amoxicillin 875 mg / clavulanate 125 mg oral tablet (12 sources) Penicillin-class Antibacterial Start: 08-09-2019 End: 11-20-2019 take 1 tablet by mouth twice daily Amoxicillin-Pot Clavulanate (Augmentin) 875-125 mg tablet Discontinued 1 TABLET PO TWICE A DAY August 09, 2019 12:00am November 20, 2019 4:14pm Start: 12-18-2017 End: 09-10-2018 take 1 tablet by mouth twice daily Amoxicillin-Pot Clavulanate Discontinued 1 TABLET PO TWICE A DAY December 18, 2017 12:00am September 10, 2018 4:06pm ARIPiprazole 5 mg oral tablet (6 sources) Atypical Antipsychotic Start: 02-26-2019 End: 11-20-2019 take 1 tablet by mouth once daily Aripiprazole (Abilify) 5 mg tablet Discontinued 5 MG PO DAILY February 26, 2019 1:00am November 20, 2019 4:15pm busPIRone hydrochloride 5 mg oral tablet (6 sources) Start: 11-17-2020 End: 07-06-2021 take 5 mg by mouth twice daily Buspirone Discontinued 5 MG PO TWICE A DAY 60 November 17, 2020 12:00am July 06, 2021 2:29pm cefdinir 300 mg oral capsule (6 sources) Cephalosporin Antibacterial Start: 10-03-2020 End: 11-17-2020 take 300 mg by mouth twice daily Cefdinir Discontinued 300 MG PO TWICE A DAY 14 October 03, 2020 12:00am November 17, 2020 8:41am ciprofloxacin 500 mg oral tablet (9 sources) Quinolone Antimicrobial Start: 11-02-2016 CIPROFLOXACIN HCL 500 MG TABS 1 tablet twice daily CIPROFLOXACIN HCL [id number] Raul COTTRELL Start: 03-09-2016 End: 07-03-2017 take 250 mg by mouth twice daily Ciprofloxacin Hcl Discontinued 250 MG PO TWICE A DAY 10 March 09, 2016 1:00am July 03, 2017 8:40am 1 ml denosumab 60 mg/ml prefilled syringe (12 sources) RANK Ligand Inhibitor Start: 08-22-2017 End: 10-16-2018 Denosumab (Prolia) 60 mg/mL syringe Discontinued 60 MG SC every 6 months August 22, 2017 11:50am October 16, 2018 2:02pm estradiol 0.1 mg/ml vaginal cream (6 sources) Estrogen Start: 08-04-2017 End: 10-16-2018 Estradiol (Estrace) 0.01 % (0.1 mg/gram) cream Discontinued 0 VAGINAL .COMPLEX 42.5 August 04, 2017 12:00am October 16, 2018 2:03pm pea sized amount VAGINAL every other day X 4 weeks then twice a week; off 1 week Fluad Quad 1852-2927(65yr up)(PF) 60 mcg (15 mcg x 4)/0.5mL IM syringe (flu vac (4 sources) Start: 01-06-2021 End: 01-06-2021 Fluad Quad (65yr up)(PF) 60 mcg (15 mcg x 4)/0.5mL IM syringe (flu vac Discontinued 60 MCG IM ONCE 0.5 January 06, 2021 8:23am January 06, 2021 9:13am Flucelvax Quad (PF) (flu vac qs 2018(4 yr up)CD(PF)) 60 mcg (15 mcg x (4 sources) Start: 02-06-2018 End: 02-06-2018 inject 15 ug by intramuscular injection once Flucelvax Quad (PF) (flu vac qs 2017(4 yr up)CD(PF)) 60 mcg (15 mcg x Discontinued 60 MCG IM ONCE 1 February 06, 2018 2:46pm February 06, 2018 4:19pm fluconazole 200 mg oral tablet (3 sources) Azole Antifungal Start: 11-02-2016 FLUCONAZOLE 200 MG TABS take one tablet x1 as needed FLUCONAZOLE [id number] Raul COTTRELL hydroCHLOROthiazide 25 mg / losartan potassium 100 mg oral tablet (6 sources) Thiazide Diuretic, Angiotensin 2 Receptor Max Start: 03-06-2016 End: 01-03-2018 Losartan-Hydrochl orothiazide Discontinued 1 EACH PO DAILY March 06, 2016 1:00am January 03, 2018 2:27pm levoFLOXacin 500 mg oral tablet (6 sources) Quinolone Antimicrobial Start: 08-25-2019 End: 11-20-2019 take 1 tablet by mouth once daily Levofloxacin (Levaquin) 500 mg tablet Discontinued 500 MG PO DAILY August 25, 2019 12:00am November 20, 2019 4:14pm naproxen 500 mg oral tablet (6 sources) Nonsteroidal Anti-inflammator y Drug Start: 12-21-2017 End: 10-16-2018 take 500 mg by mouth twice daily Naproxen Discontinued 500 MG PO TWICE A DAY December 21, 2017 12:00am October 16, 2018 2:03pm nitrofurantoin 100 mg oral tablet (2 sources) Start: 11-02-2016 MACROBID 100 MG CAPS 1 capsule twice a day NITROFURANTOIN MONOHYD MACRO [id number] Raul COTTRELL nitrofurantoin, macrocrystals 25 mg / nitrofurantoin, monohydrate 75 mg oral capsule (19 sources) Nitrofuran Antibacterial Start: 08-03-2019 End: 08-11-2019 take 1 capsule by mouth every twelve hours at mealtime Nitrofurantoin Monohyd/M-Cryst (Macrobid) 100 mg capsule Discontinued 100 MG PO Q12H 6 3 August 08, 2019 12:00am August 11, 2019 12:02am must administer with a meal/food Start: 09-10-2018 End: 09-17-2018 take 1 capsule by mouth every twelve hours at mealtime Nitrofurantoin Monohyd/M-Cryst Discontinued 1 CAP PO Q12H 14 7 September 10, 2018 12:00am September 17, 2018 12:08am administer with a meal/food; swallow whole; do not open, crush, dissolve , or chew Start: 11-02-2016 MACROBID 100 M G CAPS 1 capsule twice a day NITROFURANTOIN MONOHYD MACRO [id number] Raul COTTRELL Drug Treatment Unknown - unknown (1 source) No information available. nystatin [id number] unt/ml oral suspension (6 sources) Polyene Antifungal Start: End: take 1 mL by mouth every six hours Nystatin Discontinued 5 ML PO EVERY 6 HOURS 600 30 November 25, 2019 12:00am December 25, 2019 12:02am swish and spit ondansetron 4 mg disintegrating oral tablet (6 sources) Serotonin-3 Receptor Antagonist Start: End: take 4 mg by mouth every eight hours as needed Ondansetron Discontinued 4 MG PO EVERY 8 HOURS NEEDED March 06, 2016 1:00am August 04, 2017 1:56pm phenazopyridine hydrochloride 100 mg oral tablet (6 sources) Start: End: take 1 tablet by mouth three times daily Phenazopyridine (Pyridium) 100 mg tablet Discontinued 100 MG PO THREE TIMES A DAY 6 0 August 09, 2019 12:00am November 20, 2019 4:15pm SULFAMETHOXAZOLE-TRIMET HOPRIM (12 sources) Dihydrofolate Reductase Inhibitor Antibacterial, Sulfonamide Antimicrobial Start: 017 End: BACTRIM DS 800-160 MG TABS one pill Q 12 hours SULFAMETHOXAZOLE-TRIME THOPRIM [id number] Ferny Solorzano PA-C Start: 10-08-2016 End: 10-09-2016 BACTRIM DS 800-160 MG TABS o ne pill Q 12 hours SULFAMETHOXAZOLE-TRIMETHOPRIM [id number] Ferny Solorzano PA-C Start: 10-08-2016 BACTRIM DS 800 -160 MG TABS one pill Q 12 hours SULFAMETHOXAZOLE-TRIMETHOPRIM [id number] Ferny Solorzano PA-C tamsulosin hydrochloride 0.4 mg oral capsule (6 sources) alpha-Adrenergic Max Start: 12-18-2017 End: 10-16-2018 take 1 capsule by mouth once daily Tamsulosin (Flomax) 0.4 mg capsule Discontinued 0.4 MG PO DAILY December 18, 2017 12:00am October 16, 2018 2:03pm traZODone hydrochloride 50 mg oral tablet (6 sources) Serotonin Reuptake Inhibitor Start: 08-22-2017 End: 10-03-2020 take 50 mg by mouth once daily Trazodone Discontinued 50 MG PO daily August 22, 2017 12:00am October 03, 2020 1:39pm Problems Active Problems Problem Classification Problem Date Documented Da te Episodic/Chronic Acute and unspecified renal failure (6 sources) Injury of kidney; Translations: [Acute kidney failure, unspecified] Episodic Allergic reactions (6 sources) Inflammatory dermatosis; Translations: [Dermatitis, unspecified] Episodic Anxiety disorders (9 sources) Mixed anxiety and depressive disorder; Translations: [Other specified anxiety disorders] Onset: 11-09-2023 Chronic Calculus of urinary tract (6 sources) Kidney stone; Translations: [Calculus of kidney] Episodic Essential hypertension (20 sources) Hypertensive disorder; Translations: [Essential (primary) hypertension] Onset: 08-07-2024 10-08-2016 Chronic Genitourinary symptoms and ill-defined conditions (2 sources) Frequency of micturition; Translations: [Dysuria] Onset: 06-12-2024 Episodic Mood disorders (1 source) Major depressive disorder, single episode, unspecified; Translations: [Major depressive disorder, single episode, unspecified] Onset: 09-25-2024 Chronic Osteoporosis (7 sources) Osteoporosis; Translations: [Age-related osteoporosis without current pathological fracture] Onset: 11-21-2023 Chronic Other connective tissue disease (6 sources) Pain in upper limb; Translations: [Pain in arm, unspecified] Episodic Other connective tissue disease (5 sources) Pain in arm, unspecified; Translations: [Pain in limb] Episodic Other eye disorders (6 sources) Pain in eye; Translations: [Ocular pain, unspecified eye] Episodic Other eye disorders (5 sources) Ocular pain, unspecified eye; Translations: [Pain in or around eye] Episodic Other gastrointestinal disorders (6 sources) Dysphagia; Translations: [Dysphagia, unspecified] Episodic Other gastrointestinal disorders (7 sources) Dysphagia, unspecified; Translations: [Dysphagia, unspecified] Episodic Other lower respiratory disease (6 sources) Dyspnea on exertion; Translations: [Dyspnea, unspecified] Episodic Other nutritional; endocrine; and metabolic disorders (6 sources) Overweight; Translations: [Overweight] Episodic Other screening for suspected conditions (not mental disorders or infectious disease) (8 sources) Mammography abnormal; Translations: [Other abnormal and inconclusive findings on diagnostic imaging of breast] Episodic Other screening for suspected conditions (not mental disorders or infectious disease) (1 source) No current problems or disability 10-08-2016 Other upper respiratory infections (10 sources) Streptococcal sore throat; Translations: [Pharyngitis] Onset: 11-02-2016 11-04-2016 Episodic Residual codes; unclassified (6 sources) Obstructive sleep apnea syndrome; Translations: [Obstructive sleep apnea (adult) (pediatric)] Chronic Residual codes; unclassified (6 sources) Hypersomnia; Translations: [Hypersomnia, unspecified] Chronic Residual codes; unclassified (1 source) Obstructive sleep apnea (adult) (pediatric); Translations: [Obstructive sleep apnea (adult) (pediatric)] Onset: 01-26-2024 Chronic Unclassified (2 sources) Cough, unspecified; Translations: [Cough, unspecified] Onset: 12-12-2023 Urinary tract infections (20 sources) Urinary tract infectious disease; Translations: [Urinary tract infection, site not specified] Onset: 10-08-2016 10-08-2016 Episodic Viral infection (2 sources) Disease caused by 2019-nCoV; Translations: [COVID-19] Episodic Past or Other Problems Problem Classification Problem Date Documented Da te Episodic/Chronic Fluid and electrolyte disorders (6 sources) Hypokalemia; Translations: [Hypokalemia] Onset: 05-31-2024 Episodic Other circulatory disease (1 source) Hypotension, unspecified; Translations: [Hypotension, unspecified] Onset: 06-13-2024 Episodic Other upper respiratory disease (3 sources) Pain in throat; Translations: [Acute pharyngitis, unspecified] Onset: 11-02-2016 11-02-2016 Episodic Unclassified (1 source) history of kidney stone removal Results Test Name Value Interpretation Reference Range Facility MR/BPon 09-25-2024 MR/BP [place] [id number] [facility], [address] [place] [address] OFFICE VISIT Date of Service: 09/25/24 MR#: [id number] Acct: [id number] Name: ESTEFANIA GODOY Sharon Rep #: [id number] : 1955 Provider: Dr. Raul Campbell se, DO Age/Sex: 68/F Location: [facility] [place].BP Status: Signed Intake Vital Signs 06/25/24 10:30 09/25/24 10:14 Height 5 ft 2 in 5 ft 2 in Weight: 174 lb 171 lb BMI 31.8 31.2 BP 120/75 121/81 H Blood Pressure Location Lt brachial Lt brachial Position Sitting Sitting Respiration 16 16 Pulse 79 73 Pulse Source Monitor Monitor Temp 98.2 F Pulse Oximetry (%) 96 Oxygen Delivery Method room air BP Intake Visit Reasons: 3mfu Accompanied by: Self Allergies No Known Allergies Allergy (Verified 09/25/24 10:31) Medications ???Medication ???Instructions ???Recorded ???Confirmed ???Type cholecalciferol (vitamin D3) 50 2,000 unit PO BID 07/03/17 5 History mcg (2,000 unit) capsule calcium carbonate (Calcium 600) 600 mg PO QDAY #90 tabs 10/19/22 0 09/25/24 Rx albuterol sulfate 90 mcg/actuation 2 puff inhalation Q6H PRN 09/25/24 Rx aerosol inhaler shortness of breath or wheezing #6.7 grams amlodipine 10 mg tablet 10 mg PO DAILY #90 tabs 12/08/23 0 09/25/24 Rx pantoprazole 40 mg tablet,delayed 40 mg PO DAILY #90 tabs 03/25/24 09/25/24 Rx release potassium chloride 20 mEq 40 meq (2 x 20 mEq) PO BID 3 03/2809/25/24 Rx tablet,extended months #360 tabs release(part/cryst) (Klor-Con M) losartan 100 mg tablet 100 mg PO DAILY #90 TABLETS 09/25/24 Rx metoprolol succinate 50 mg 50 mg PO QDAY #90 tabs 08/07/24 Rx tablet,extended release 24 hr clonazepam 0.5 mg tablet 0.5 mg PO DAILY PRN Anxiety #30 09/25/24 Rx tabs duloxetine 60 mg capsule,delayed 60 mg PO DAILY #90 caps 09/25/24 0 09/25/24 Rx release Have you fallen in the past year?: No PFSH Medical History (Updated 08/09/24 @ 16:[address] Aissatou Hu MD) Proteinuria Urinary frequency Chronic cough Bronchitis Sinusitis Cough JEANNA (generalized anxiety disorder) Obesity (BMI 30-39.9) Open wound of skin GERD (gastroesophageal reflux disease) Change in bowel movement Burning with urination Vitamin deficiency Generalized muscle ache Panic disorder Major depressive disorder COVID-19 Wears glasses Depression Anxiety Sore on scalp Restless legs History of ulceration Gastric reflux Non-smoker CPAP (continuous positive airway pressure) dependence History of echocardiogram Abnormal barium swallow Hypokalemia CHANTELL (acute kidney injury) Arm pain Eye pain Difficulty swallowing Dermatitis Renal stones HPV (human papilloma virus) infection history of kidney stone removal High cholesterol HTN (hypertension) Surgical History S/P right rotator cuff repair Hx of colonoscopy History of hemorrhoidectomy History of appendectomy History of hysterectomy History of cholecystectomy Family History Father Alcoholism Colon cancer Heart disease Hypertension High cholesterol Grandfather Heart disease Myocardial infarction Hypertension High cholesterol Sister Schizophrenia Mental disorder psychiatric care Diabetes Other Anxiety Autoimmune disorder Depression Social History household members: none current occupational 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 Patient reports that she has been good. Been doing since having some more sunshine with the weather. Feels like she is not as much of a perfectionist as she used to be in a positive way. Does have some apparent skin lesions/excoriation spots on her skin which has started several weeks ago. They are somewhat itchy and even mildly painful. Had a similar presentation several years ago. Relationship with sisters has been doing largely good. Patient reports that she has been sleeping terrible. Has been tolerating her CPAP better than she had been previously. Has been getting less than 4 hours of sleep. Does try not to nap during the (more content not included)... Normal [facility] Urinalysis, Completeon 08-08 PROT DIPSTX 100 mg/dl Abnormal Negative [facility] Comment on above: Order Comment: CLEAN CATCH Result Comment: AMENDED REPORT 08/08/24 1629 PROT DIPSTX previously reported as: Test not performed mg/dl Performed By: #### L 400.0001 #### [facility] [address] [facility]. [place], [place], [id number] Basic Metabolic Profile (BMP )on 08-07-2024 BUN/CRE 16.8 RATIO Normal 10-20 [facility] Comment on above: Performed By: #### L 503.6005 #### [facility] [address] [place], [address] Calcium [Mass/Vol] 9.0 mg/dL Normal 7.6-11.0 [facility] Comment on above: Performed By: #### L 503.6005 #### [facility] [address] [place], [address] Chloride [Moles/Vol] 105 mmol/L Normal 98-108 [facility] Comment on above: Performed By: #### L 503.6005 #### [facility] [address] [place], [address] CO2 [Moles/Vol] 25.8 mmol/L Normal 21.0-32.0 [facility] Comment on above: Performed By: #### L 503.6005 #### [facility] [address] [place], [address] Creatinine [Mass/Vol] 0.89 mg/dL Normal 0.70-1.20 [facility] Comment on above: Performed By: #### L 503.6005 #### [facility] [address] [place], [address] GAP 10 Normal 5-15 [facility] Comment on above: Performed By: #### L 503.6005 #### [facility] [address] [place], [address] GFR/1.73 sq M.predicted among non-blacks MDRD (S/P/Bld) [Vol rate/Area] 70 mL/min/{1.73_m2} Normal >60 [facility] Comment on above: Result Comment: mL/m in/1.73m2 CKD-EPI Creatinine Equation (2020) Performed By: #### L 503.6005 #### [facility] [address] [place], [address] Glucose [Mass/Vol] 115 mg/dL High 70-99 [facility] Comment on above: Performed By: #### L 503.6005 #### [facility] [address] [place], [address] Potassium [Moles/Vol] 3.4 mmol/L Normal 3.3-5.1 [facility] Comment on above: Performed By: #### L 503.6005 #### [facility] [address] [place], [address] Sodium [Moles/Vol] 141 mmol/L Normal 133-145 [facility] Comment on above: Performed By: #### L 503.6005 #### [facility] [address] [place], [address] Urea nitrogen [Mass/Vol] 15 mg/dL Normal 4-19 [facility] Comment on above: Performed By: #### L 503.6005 #### [facility] [address] [place], [address] Internal Medicine Office Vis iton 08-07-2024 Internal Medicine Office Visit [facility] [address] [place] [address] OFFICE VISIT Date of Service: 08/07/24 MR#: [id number] Acct: [id number] Name: ESTEFANIA GODOY Rep #: [id number] : 1955 Provider: Dr. Aissatou quintana MD Age/Sex: 68/F Location: [facility] [place].[facility] Status: Signed Intake Vital Signs 06/25/24 10:30 Height 5 ft 2 in Weight: 174 lb BMI 31.8 BP 118/68 Blood Pressure Location Lt brachial Position Sitting Respiration 18 Pulse 82 Pulse Source Monitor Temp 98.2 F Temp Source Temporal Pulse Oximetry (%) 96 Oxygen Delivery Method room air Intake Visit Reasons: bp fu Chief Complaint: bp fu Is patient in pain?: No Allergies No Known Allergies Allergy (Verified 08/07/24 10:25) Medications ???Medication ???Instructions ???Recorded ???Confirmed ???Type cholecalciferol (vitamin D3) 50 2,000 unit PO BID 07/03/17 5 History mcg (2,000 unit) capsule calcium carbonate (Calcium 600) 600 mg PO QDAY #90 tabs 10/19/22 0 08/07/24 Rx albuterol sulfate 90 mcg/actuation 2 puff inhalation Q6H PRN 08/07/24 Rx aerosol inhaler shortness of breath or wheezing #6.7 grams amlodipine 10 mg tablet 10 mg PO DAILY #90 tabs 12/08/23 0 08/07/24 Rx pantoprazole 40 mg tablet,delayed 40 mg PO DAILY #90 tabs 03/25/24 08/07/24 Rx release potassium chloride 20 mEq 40 meq (2 x 20 mEq) PO BID 3 03/2808/07/24 Rx tablet,extended months #360 tabs release(part/cryst) (Klor-Con M) losartan 100 mg tablet 100 mg PO DAILY #90 TABLETS 08/07/24 Rx clonazepam 0.5 mg tablet 0.5 mg PO DAILY PRN Anxiety #30 08/07/24 Rx tabs duloxetine 60 mg capsule,delayed 60 mg PO DAILY #90 caps 06/25/24 0 08/07/24 Rx release metoprolol succinate 50 mg 50 mg PO QDAY #90 tabs 08/07/24 R x tablet,extended release 24 hr Have you fallen in the past year?: No PFSH Medical History (Updated 08/07/24 @ 12:[address] Aissatou Hu MD) Urinary frequency Chronic cough Bronchitis Sinusitis Cough JEANNA (generalized anxiety disorder) Obesity (BMI 30-39.9) Open wound of skin GERD (gastroesophageal reflux disease) Change in bowel movement Burning with urination Vitamin deficiency Generalized muscle ache Panic disorder Major depressive disorder COVID-19 Wears glasses Depression Anxiety Sore on scalp Restless legs History of ulceration Gastric reflux Non-smoker CPAP (continuous positive airway pressure) dependence History of echocardiogram Abnormal barium swallow Hypokalemia CHANTELL (acute kidney injury) Arm pain Eye pain Difficulty swallowing Dermatitis Renal stones HPV (human papilloma virus) infection history of kidney stone removal High cholesterol HTN (hypertension) Surgical History S/P right rotator cuff repair Hx of colonoscopy History of hemorrhoidectomy History of appendectomy History of hysterectomy History of cholecystectomy Family History Father Alcoholism Colon cancer Heart disease Hypertension High cholesterol Grandfather Heart disease Myocardial infarction Hypertension High cholesterol Sister Schizophrenia Mental disorder psychiatric care Diabetes Other Anxiety Autoimmune disorder Depression Social History household members: none current occupational status: retired 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 Also has some concerns. Blood pressure today is at 118/68 mmHg. She states that at home, her readings have also been much better. No syncopal and near syncopal episodes. Feels well. Staying active. She states that she has been waking up several times at night to go urinate. Also has noted increased urination during the day. No burning or bloody urination reported. No abdominal pain reported. Other chronic medical conditions are largely stable. ROS Const Constitutional: No body ache, chills, excessive sweating, fatigue, fever(s), frequent falls, headache(s), snoring, weight change, sleep problems, abnormal sleep pattern or change in appetite Eyes Eyes: No blurry vi (more content not included)... Normal [facility] MR/BMS.BPon 06-25-2024 MR/BMS.BP [address], [address] [place] [address] OFFICE VISIT Date of Service: 06/25/24 MR#: [id number] Acct: [id number] Name: ESTEFANIA GODOY Rep #: [id number] : 1955 Provider: Dr. Raul Campbell se, DO Age/Sex: 68/F Location: [facility] [place].BP Status: Signed Intake Vital Signs 03/21/24 09:55 06/02/24 14:53 06/25/24 10:30 Height 5 ft 2 in 5 ft 2 in 5 ft 2 in BP 120/75 Blood Pressure Location Lt brachial Position Sitting Respiration 16 Pulse 79 Pulse Source Monitor BP Intake Visit Reasons: 3 M FU Accompanied by: Self Allergies No Known Allergies Allergy (Verified 06/25/24 10:35) Medications ???Medication ???Instructions ???Recorded ???Confirmed ???Type cholecalciferol (vitamin D3) 50 2,000 unit PO BID 07/03/17 5 History mcg (2,000 unit) capsule calcium carbonate (Calcium 600) 600 mg PO QDAY #90 tabs 10/19/22 0 06/25/24 Rx albuterol sulfate 90 mcg/actuation 2 puff inhalation Q6H PRN 06/25/24 Rx aerosol inhaler shortness of breath or wheezing #6.7 grams amlodipine 10 mg tablet 10 mg PO DAILY #90 tabs 12/08/23 0 06/25/24 Rx pantoprazole 40 mg tablet,delayed 40 mg PO DAILY #90 tabs 03/25/24 06/25/24 Rx release potassium chloride 20 mEq 40 meq (2 x 20 mEq) PO BID 3 03/2806/25/24 Rx tablet,extended months #360 tabs release(part/cryst) (Klor-Con M) hydralazine 50 mg tablet 50 mg PO TID #90 tabs 05/24/24 Rx losartan 100 mg tablet 100 mg PO DAILY #90 TABLETS 06/25/24 Rx clonazepam 0.5 mg tablet 0.5 mg PO DAILY PRN Anxiety #30 06/25/24 Rx tabs duloxetine 60 mg capsule,delayed 60 mg PO DAILY #90 caps 06/25/24 0 06/25/24 Rx release metoprolol succinate 100 mg 100 mg PO QDAY 06/25/24 06/25/24 H istory tablet,extended release 24 hr Have you fallen in the past year?: No PFSH Medical History Chronic cough Bronchitis Sinusitis Cough JEANNA (generalized anxiety disorder) Obesity (BMI 30-39.9) Open wound of skin GERD (gastroesophageal reflux disease) Change in bowel movement Burning with urination Vitamin deficiency Generalized muscle ache Panic disorder Major depressive disorder COVID-19 Wears glasses Depression Anxiety Sore on scalp Restless legs History of ulceration Gastric reflux Non-smoker CPAP (continuous positive airway pressure) dependence History of echocardiogram Abnormal barium swallow Hypokalemia CHANTELL (acute kidney injury) Arm pain Eye pain Difficulty swallowing Dermatitis Renal stones HPV (human papilloma virus) infection history of kidney stone removal High cholesterol HTN (hypertension) Surgical History S/P right rotator cuff repair Hx of colonoscopy History of hemorrhoidectomy History of appendectomy History of hysterectomy History of cholecystectomy Family History Father Alcoholism Colon cancer Heart disease Hypertension High cholesterol Grandfather Heart disease Myocardial infarction Hypertension High cholesterol Sister Schizophrenia Mental disorder psychiatric care Diabetes Other Anxiety Autoimmune disorder Depression Social History household members: none current occupational 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 Patient reports that she has been doing pretty good. Had a bout in the beginning part of May where she felt she had some seasonal depression. Had some recent changes to her blood pressure medications and went to ER after feeling like she was dizzy/lightheaded. Her blood pressure today is much improved. Was somewhat anxious during this time, but it has improved. Has been having some continued issues with sleep. Has had some difficulty with tolerating her APAP, specifically it making a gurgling noise in the middle of the night which has woken her up. Only got 2.5 hours of sleep last night. Has needed to take some afternoon naps because of this. Does at times use her phone in the middle of the night. Continues to follow with Ratna Olson (more content not included)... Normal [facility] 12 Lead EKGon 06-02-2024 12 Lead EKG [facility] [address] [place] [address] 12 Lead EKG 06/02/24 1527 MR#: [id number] Acct: [id number] Name: ESTEFANIA GODOY Rep #: [id number] : 1955 68 From: Huey Solorzano MD Attending Dr: Status: DEP ER Ordering Dr: Arian Gary DO Date: 06/02/24 Location: ED Sex: F C Admitted: Test Reason : HYPOTENSION Blood Pressure : */* mmHG Vent. Rate : 96 BPM Atrial Rate : 96 BPM P-R Int : 138 ms QRS Dur : 72 ms QT Int : 382 ms P-R-T Axes : 24 -18 64 degrees QTcB Int : 482 ms Normal sinus rhythm with sinus arrhythmia Normal ECG Confirmed by Huey Solorzano ([id number]), subeditor LAKHWINDER VILLAGOMEZ ([id number]) on 06/05/2024 6:03:47 AM Referred By: Arian Gary Confirmed By: Huey Solorzano 06/05/24 0603 Date Huey Solorzano MD CC: Dr. Aissatou Hu MD; Dr. Arian Gary DO Signed Normal [facility] Basic Metabolic Profile (BMP )on 06-02-2024 BUN/CRE 10.9 RATIO Normal 10-20 [facility] Comment on above: Order Comment: 'TROP ' Serial specimen #1, #2 or #3: 1 Performed By: #### L 100.0100, L503.6005, L501.4020, L500.2500 #### [facility] [address] [place], [address] CA,Total 9.1 mg/dL Normal 8.5-10.1 [facility] Comment on above: Order Comment: 'TROP ' Serial specimen #1, #2 or #3: 1 Performed By: #### L 100.0100, L503.6005, L501.4020, L500.2500 #### [facility] [address], [address] Chloride [Moles/Vol] 110 mmol/L High 98-107 [facility] Comment on above: Order Comment: 'TROP ' Serial specimen #1, #2 or #3: 1 Performed By: #### L 100.0100, L503.6005, L501.4020, L500.2500 #### [facility] [address] [place], [address] CO2 [Moles/Vol] 25.0 mmol/L Normal 21.0-32.0 [facility] Comment on above: Order Comment: 'TROP ' Serial specimen #1, #2 or #3: 1 Performed By: #### L 100.0100, L503.6005, L501.4020, L500.2500 #### [facility] [address] [place], [address] Creatinine [Mass/Vol] 1.10 mg/dL High 0.55-1.02 [facility] Comment on above: Order Comment: 'TROP ' Serial specimen #1, #2 or #3: 1 Result Comment: The validity of the calculated GFR GFRAA in patients over 70 years has not been determined. Clinical correlation is essential. Performed By: #### L 100.0100, L503.6005, L501.4020, L500.2500 #### [facility] [address] [place], [address] ECRCL 46.40 ml/min Normal [facility] Comment on above: Order Comment: 'TROP ' Serial specimen #1, #2 or #3: 1 Performed By: #### L 100.0100, L503.6005, L501.4020, L500.2500 #### [facility] [address] [place], [address] EST GFR - AA 63 mL/min Normal >60 [facility] Comment on above: Order Comment: 'TROP ' Serial specimen #1, #2 or #3: 1 Result Comment: Afri can Moroccan GFR Calc Performed By: #### L 100.0100, L503.6005, L501.4020, L500.2500 #### [facility] [address] [place], [address] GAP 8 Normal 5-15 [facility] Comment on above: Order Comment: 'TROP ' Serial specimen #1, #2 or #3: 1 Performed By: #### L 100.0100, L503.6005, L501.4020, L500.2500 #### [facility] [address] [place], [address] GFR/1.73 sq M.predicted among non-blacks MDRD (S/P/Bld) [Vol rate/Area] 52 mL/min/{1.73_m2} Low >60 [facility] Comment on above: Order Comment: 'TROP ' Serial specimen #1, #2 or #3: 1 Result Comment: Non- GFR Calc Performed By: #### L 100.0100, L503.6005, L501.4020, L500.2500 #### [facility] [address] [place], [address] Glucose [Mass/Vol] 182 mg/dL High 74-106 [facility] Comment on above: Order Comment: 'TROP ' Serial specimen #1, #2 or #3: 1 Result Comment: Fast ing Glucose result greater than or equal to 126 mg/dL suggests DIABETES MELLITUS per A.D.A. criteria. Performed By: #### L 100.0100, L503.6005, L501.4020, L500.2500 #### [facility] [address] [place], [address] Potassium [Moles/Vol] 3.2 mmol/L Low 3.5-5.1 [facility] Comment on above: Order Comment: 'TROP ' Serial specimen #1, #2 or #3: 1 Performed By: #### L 100.0100, L503.6005, L501.4020, L500.2500 #### [facility] [address] [place], [address] Sodium [Moles/Vol] 142 mmol/L Normal 136-145 [facility] Comment on above: Order Comment: 'TROP ' Serial specimen #1, #2 or #3: 1 Performed By: #### L 100.0100, L503.6005, L501.4020, L500.2500 #### [facility] [address] [place], [address] Urea nitrogen [Mass/Vol] 12 mg/dL Normal 7-18 [facility] Comment on above: Order Comment: 'TROP ' Serial specimen #1, #2 or #3: 1 Performed By: #### L 100.0100, L503.6005, L501.4020, L500.2500 #### [facility] [address] [place], [address] Brain/Head without Contrasto n 06-02-2024 Brain/Head without Contrast [facility] [address] [place] [address] Brain/Head without Contrast MR#: [id number] Acct: [id number] Name: ESTEFANIA GODOY Rep #: [id number] : 1955 F 68 From: Marco A Ochoa MD PCP: Dr. Aissatou Hu MD Status: REG ER Study: Brain/Head without Contrast Date of Exam: 05/12 07/02 Exam# [id number] Ordering Dr: Arian Gary DO EXAM: BRAIN/HEAD WITHOUT CONTRAST CLINICAL HISTORY: Severe headache COMPARISON: None. TECHNIQUE: Noncontrast images of the head with multiplanar reconstructions. Dose reduction techniques were used including intermediate exposure control (AEC),iterative reconstruction technique, and/or mA and/or KV dose adjustments based on patient's size. FINDINGS: CT HEAD FINDINGS: No acute intracranial hemorrhage, mass, mass effect, midline shift or pathologic extra-axial fluid collection. No hydrocephalus. Age- appropriate cerebral volume and white matter. Visualized paranasal sinuses and mastoid air cells are clear. The calvarium is grossly intact. CT/Brain/Head without Contrast IMPRESSION: No acute intracranial abnormality Reading Location: [facility] CC: Dr. Aissatou Hu MD; Dr. Arian Gary DO Gin Clerk: Signed Normal [facility] CBC W/Diff, Automatedon 02 Absolute Lymph 1.71 X10 3/uL Normal 0.83-4.51 [facility] Comment on above: Performed By: #### L 100.0100, L503.6005, L501.4020, L500.2500 #### [facility] [address] [place], [address] Absolute Neut 4.8 X10 3/uL Normal 2.0-7.7 [facility] Comment on above: Performed By: #### L 100.0100, L503.6005, L501.4020, L500.2500 #### [facility] [address] [place], [address] Basophils/100 WBC (Bld) 0.9 % Normal 0-1 [facility] Comment on above: Performed By: #### L 100.0100, L503.6005, L501.4020, L500.2500 #### [facility] [address] [place], [address] Eosinophils/100 WBC (Bld) 1.5 % Normal 0-5 [facility] Comment on above: Performed By: #### L 100.0100, L503.6005, L501.4020, L500.2500 #### [facility] [address] [place], [address] Erythrocyte distribution width (RBC) [Ratio] 14.0 % Normal 11.6-14.6 [facility] Comment on above: Performed By: #### L 100.0100, L503.6005, L501.4020, L500.2500 #### [facility] [address] [place], [address] Hematocrit (Bld) [Volume fraction] 43.3 % Normal 37-47 [facility] Comment on above: Performed By: #### L 100.0100, L503.6005, L501.4020, L500.2500 #### [facility] [address] [place], [address] Hemoglobin (Bld) [Mass/Vol] 14.2 g/dL Normal 12.0-15.0 [facility] Comment on above: Performed By: #### L 100.0100, L503.6005, L501.4020, L500.2500 #### [facility] [address] [place], [address] IG% 0.400 Normal 0.0-0.9 [facility] Comment on above: Result Comment: IG% - Immature Granulocytes (promyelocytes, myelocytes and metamyelocytes) > 1% indicates that a LEFT SHIFT is Present. Performed By: #### L 100.0100, L503.6005, L501.4020, L500.2500 #### [facility] [address] [place], [address] Lymphocytes/100 WBC (Bld) 23.1 % Normal 19-41 [facility] Comment on above: Performed By: #### L 100.0100, L503.6005, L501.4020, L500.2500 #### [facility] [address] [place], [address] MCH (RBC) [Entitic mass] 29.3 pg Normal 27.0-32.0 [facility] Comment on above: Performed By: #### L 100.0100, L503.6005, L501.4020, L500.2500 #### [facility] [address] [place], [address] MCHC (RBC) [Mass/Vol] 32.8 g/dL Normal 32-36 [facility] Comment on above: Performed By: #### L 100.0100, L503.6005, L501.4020, L500.2500 #### [facility] [address] [place], [address] MCV (RBC) [Entitic vol] 89.5 fL Normal 81-99 [facility] Comment on above: Performed By: #### L 100.0100, L503.6005, L501.4020, L500.2500 #### [facility] [address] [place], [address] Monocytes/100 WBC (Bld) 9.4 % Normal 0-10 [facility] Comment on above: Performed By: #### L 100.0100, L503.6005, L501.4020, L500.2500 #### [facility] [address] [place], [address] Neutrophils/100 WBC (Bld) 64.7 % Normal 47-70 [facility] Comment on above: Performed By: #### L 100.0100, L503.6005, L501.4020, L500.2500 #### [facility] [address] [place], [address] Nucleated RBC (Bld) [#/Vol] 0 10*3/uL Normal 0-5 [facility] Comment on above: Performed By: #### L 100.0100, L503.6005, L501.4020, L500.2500 #### [facility] [address] [place], [address] Platelet mean volume (Bld) [Entitic vol] 10.1 fL Normal 6.2-12.0 [facility] Comment on above: Performed By: #### L 100.0100, L503.6005, L501.4020, L500.2500 #### [facility] [address] [place], [address] Platelets (Bld) [#/Vol] 388 10*3/uL Normal 150-450 [facility] Comment on above: Performed By: #### L 100.0100, L503.6005, L501.4020, L500.2500 #### [facility] [address] [place], [address] RBC (Bld) [#/Vol] 4.84 10*6/uL Normal 4.2-5.4 [facility] Comment on above: Performed By: #### L 100.0100, L503.6005, L501.4020, L500.2500 #### [facility] [address] [place], [address] RDW SD 45.1 fl High 35.1-43.9 [facility] Comment on above: Performed By: #### L 100.0100, L503.6005, L501.4020, L500.2500 #### [facility] [address] [place], [address] WBC (Bld) [#/Vol] 7.4 10*3/uL Normal 4.4-11.0 [facility] Comment on above: Performed By: #### L 100.0100, L503.6005, L501.4020, L500.2500 #### [facility] [address] [place], [address] Chest 1 View (Portable)on Chest 1 View (Portable) [facility] [address] [place] [address] Chest 1 View (Portable) MR#: [id number] Acct: [id number] Name: ESTEFANIA GODOY Rep #: [id number] : 1955 F 68 From: Marco A Ochoa MD PCP: Dr. Aissatou Hu MD Status: [facility] ER Study: Chest 1 View (Portable) Date of Exam: 06/02/24 Exam# [id number] Ordering Dr: Arian Gary DO PROCEDURE: CHEST 1 VIEW (PORTABLE) REASON FOR EXAM: Hypotension rule out pneumonia TECHNIQUE: Frontal and lateral views of the chest. COMPARISON: 11/09/2023 FINDINGS: The heart size is normal. The mediastinal contour is unremarkable. The lungs are clear. The bones are unremarkable. RAD/Chest 1 View (Portable) IMPRESSION: No radiographic evidence of acute cardiopulmonary disease. Reading Location: [facility] CC: Dr. Aissatou Hu MD; Dr. Arian Gary DO Gin Clerk: Signed Normal [facility] Emergency Department Summary on 06-02-2024 Emergency Department Summary [facility] Medical Records Department [address] [place] [address] Emergency Department Summary 06/02/24 MR#: [id number] Acct: [id number] Name: ESTEFANIA GODOY Rep #: [id number] : 1955 68 From: Arian Gary DO PCP: Dr. Aissatou Hu MD Status:DEP ER Location: ED HPI History of Present Illness Chief Complaint: Hypotension PFSH PFSH Medical History Chronic cough Bronchitis Sinusitis Cough JEANNA (generalized anxiety disorder) Obesity (BMI 30-39.9) Open wound of skin GERD (gastroesophageal reflux disease) Change in bowel movement Burning with urination Vitamin deficiency Generalized muscle ache Panic disorder Major depressive disorder COVID-19 Wears glasses Depression Anxiety Sore on scalp Restless legs History of ulceration Gastric reflux Non-smoker CPAP (continuous positive airway pressure) dependence History of echocardiogram Abnormal barium swallow Hypokalemia CHANTELL (acute kidney injury) Arm pain Eye pain Difficulty swallowing Dermatitis Renal stones HPV (human papilloma virus) infection history of kidney stone removal High cholesterol HTN (hypertension) Home Medications ???Medication ???Instructions ???Recorded ???Last Taken ???Type cholecalciferol (vitamin D3) 50 2,000 unit PO BID 07/03/17 Unknown History mcg (2,000 unit) capsule calcium carbonate (Calcium 600) 600 mg PO QDAY #90 tabs 10/19/22 U nknown Rx albuterol sulfate 90 mcg/actuation 2 puff inhalation Q6H PRN Unknown Rx aerosol inhaler shortness of breath or wheezing #6.7 grams amlodipine 10 mg tablet 10 mg PO DAILY #90 tabs 12/08/23 U nknown Rx losartan 100 mg tablet 100 mg PO DAILY #90 TABLETS Unknown Rx clonazepam 0.5 mg tablet 0.5 mg PO DAILY PRN Anxiety #30 Unknown Rx tabs duloxetine 60 mg capsule,delayed 60 mg PO DAILY #90 caps 03/21/24 U nknown Rx release pantoprazole 40 mg tablet,delayed 40 mg PO DAILY #90 tabs 03/25/24 Unknown Rx release potassium chloride 20 mEq 40 meq (2 x 20 mEq) PO BID 3 03/28 Unknown Rx tablet,extended months #360 tabs release(part/cryst) (Klor-Con M) hydralazine 50 mg tablet 50 mg PO TID #90 tabs 05/24/24 Unk nown Rx nitrofurantoin 1 cap PO Q12H 7 days #14 caps 05/12 Unknown Rx monohydrate/macrocry stals 100 mg capsule Allergy/AdvReac Type Severity Reaction Status Date / Time No Known Allergies Allergy Verified 06/02/24 14:53 Family History Father Alcoholism Colon cancer Heart disease Hypertension High cholesterol Grandfather Heart disease Myocardial infarction Hypertension High cholesterol Sister Schizophrenia Mental disorder psychiatric care Diabetes Other Anxiety Autoimmune disorder Depression Surgical History S/P right rotator cuff repair Hx of colonoscopy History of hemorrhoidectomy History of appendectomy History of hysterectomy History of cholecystectomy Social History household members: none current occupational status: 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 Smoking Status: Never smoker Electronic Cigarette Use: not used second hand exposure: No alcohol intake: never substance use type: does not use caffeine: Yes what type of physical activity do you participate in: walking frequency: 3-4 times per week duration: 45-60 minutes/day seatbelt use: always do you feel safe at home: Yes 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 Notes she has been struggling with elevated blood pressure and low potassium. Notes her primary care physician recently changed over her blood pressure meds. She states now she feels her blood pressure is too low. She states she woke up this morning after initiating hydralazine 50 mg last night with a severe headache. No she feels off. No she feels shaky and lightheaded. Notes her blood pressure has been lower than usual. She notes she is currently being treated for urine infection. But she states those symptoms have stabili (more content not included)... Normal [facility] L501.4020on 06-02-2024 TROPONIN-I HS 14 pg/mL Normal 3.0-54.0 [facility] Comment on above: Order Comment: 'TROP ' Serial specimen #1, #2 or #3: 1 Result Comment: Cuhckie robles Note: New Test Units and Gender Specific Reference Ranges. For more information see Policy Stat Procedure [place] High Sensitivity Troponin (TNIH) and attachments. Performed By: #### L 100.0100, L503.6005, L501.4020, L500.2500 #### [facility] [address] [place], [place], [address] Lactic Acidon 06-02-2024 Lactate [Moles/Vol] 1.4 mmol/L Normal 0.4-1.9 [facility] Comment on above: Order Comment: Y Performed By: #### L 503.6005 #### [facility] [address] [place], [address] Lactate [Moles/Vol] 2.9 mmol/L Invalid Interpretation Code 0.4-1.9 [facility] Comment on above: Order Comment: Y Result Comment: Crit ical Result(s) Called at: 16:23:11 06/02/2024 by: Dianne Juarez. Results read back by same. Performed By: #### L 100.0100, L503.6005, L501.4020, L500.2500 #### [facility] [address] [place], [address] Urinalysis, Completeon 06-02 BACTERIA RARE Normal None Seen [facility] Comment on above: Order Comment: CLEAN CATCH Performed By: #### L 400.0001 #### [facility] [address] [place], [address] EPI,SQUAMOUS 0-5 SEEN Normal 5-10 [facility] Comment on above: Order Comment: CLEAN CATCH Performed By: #### L 400.0001 #### [facility] [address] [place], [address] RBC 0 SEEN Normal 0-5 [facility] Comment on above: Order Comment: CLEAN CATCH Performed By: #### L 400.0001 #### [facility] [address] [place], [address] WBC 0-5 SEEN Normal 0-5 [facility] Comment on above: Order Comment: CLEAN CATCH Performed By: #### L 400.0001 #### [facility] [address] [place], [address] CAST,HYALINE 0-5 SEEN Normal 0-5 [facility] Comment on above: Order Comment: CLEAN CATCH Performed By: #### L 400.0001 #### [facility] [address] [place], [address] Mucus Ql (Urine sed) 0 SEEN Normal [facility] Comment on above: Order Comment: CLEAN CATCH Performed By: #### L 400.0001 #### [facility] [address] [place], [address] Urine Cultureon 06-01-2024 [facility] Escherichia coli [place] Count >100,000 Escherichia coli: REACTION Ampicillin Islt ELIAS <=2 Ampicillin+Sulbac Islt ELIAS <=2 S Cefepime Islt ELIAS <=0.12 S cefTRIAXone Islt ELIAS <=0.25 S Ciprofloxacin Islt ELIAS <=0.06 S B-Lactamase Extended Susc Islt NEG Gentamicin Islt ELIAS <=1 S levoFLOXacin Islt ELIAS <=0.12 S Meropenem Islt ELIAS <=0.25 S Nitrofurantoin Islt ELIAS <=16 S Pip+Tazo Islt ELIAS <=4 S TMP SMX Islt ELIAS <=20 S Normal [facility] Comment on above: Performed By: #### L 503.6005 #### [facility] [address] [place], [place], [id number] Urgent Care Visit Reporton 0 05-30-2024 Urgent Care Visit Report [facility] [address], [address] [place], [place] [address] OFFICE VISIT Date of Service: 05/30/24 MR#: [id number] Acct: [id number] Name: SHELBIESTEFANIA L Rep #: [id number] : 1955 Provider: SIMBA Jones Age/Sex: 68/F Location: [facility] [place] Status: Signed Intake Vital Signs 03/27/24 14:29 05/30/24 13:38 Height 5 ft 2 in BP 128/80 H Position Sitting Pulse 70 Temp 98.1 F Temp Source Oral Pulse Oximetry (%) 96 Oxygen Delivery Method room air Intake Visit Reasons: CONCERN FOR UTI Accompanied by: Self Allergies No Known Allergies Allergy (Verified 05/30/24 13:47) Medications ???Medication ???Instructions ???Recorded ???Confirmed ???Type cholecalciferol (vitamin D3) 50 2,000 unit PO BID 07/03/17 5 History mcg (2,000 unit) capsule calcium carbonate (Calcium 600) 600 mg PO QDAY #90 tabs 10/19/22 0 05/30/24 Rx albuterol sulfate 90 mcg/actuation 2 puff inhalation Q6H PRN 05/30/24 Rx aerosol inhaler shortness of breath or wheezing #6.7 grams amlodipine 10 mg tablet 10 mg PO DAILY #90 tabs 12/08/23 0 05/30/24 Rx losartan 100 mg tablet 100 mg PO DAILY #90 TABLETS 05/30/24 Rx clonazepam 0.5 mg tablet 0.5 mg PO DAILY PRN Anxiety #30 05/30/24 Rx tabs duloxetine 60 mg capsule,delayed 60 mg PO DAILY #90 caps 03/21/24 0 05/30/24 Rx release pantoprazole 40 mg tablet,delayed 40 mg PO DAILY #90 tabs 03/25/24 05/30/24 Rx release potassium chloride 20 mEq 40 meq (2 x 20 mEq) PO BID 3 03/2805/30/24 Rx tablet,extended months #360 tabs release(part/cryst) (Klor-Con M) hydralazine 50 mg tablet 50 mg PO TID #90 tabs 05/24/24 Rx nitrofurantoin 1 cap PO Q12H 7 days #14 caps 05/1205/30/24 Rx monohydrate/macrocry stals 100 mg capsule Have you fallen in the past year?: No Nurse's Note: Patient here for concerns for a UTI. Patient has been having Frequency and burning and achiness. Patient does have a hx of Kidney stones. [facility] Medical History Chronic cough Bronchitis Sinusitis Cough JEANNA (generalized anxiety disorder) Obesity (BMI 30-39.9) Open wound of skin GERD (gastroesophageal reflux disease) Change in bowel movement Burning with urination Vitamin deficiency Generalized muscle ache Panic disorder Major depressive disorder COVID-19 Wears glasses Depression Anxiety Sore on scalp Restless legs History of ulceration Gastric reflux Non-smoker CPAP (continuous positive airway pressure) dependence History of echocardiogram Abnormal barium swallow Hypokalemia CHANTELL (acute kidney injury) Arm pain Eye pain Difficulty swallowing Dermatitis Renal stones HPV (human papilloma virus) infection history of kidney stone removal High cholesterol HTN (hypertension) Surgical History S/P right rotator cuff repair Hx of colonoscopy History of hemorrhoidectomy History of appendectomy History of hysterectomy History of cholecystectomy Family History Father Alcoholism Colon cancer Heart disease Hypertension High cholesterol Grandfather Heart disease Myocardial infarction Hypertension High cholesterol Sister Schizophrenia Mental disorder psychiatric care Diabetes Other Anxiety Autoimmune disorder Depression Social History household members: none 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 occupational status: 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 Patient states this is similar to the last several UTIs she has had. She denies fever, chills, sweats. No nausea, vomiting or diarrhea. No pelvic or abdominal pain. No other associated symptoms or alleviating/aggravat ing factors. ROS Const Constitutional: No other (As above) Exam Const General: cooperative and healthy appearing Resp Effort Inspection: normal respiratory effort Auscultation: Bilateral: Clear to Auscultation Cardio Rate: regular rate Rhythm: regular rhythm GI Auscultation: normal bowel sounds General: No CVA tende (more content not included)... Normal [facility] Basic Metabolic Profile (BMP )on 05-16-2024 BUN/CRE 8.4 RATIO Low 10-20 [facility] Comment on above: Performed By: #### L 500.2500 #### [facility] [address] [place], [address] CA,Total 9.2 mg/dL Normal 8.5-10.1 [facility] Comment on above: Performed By: #### L 500.2500 #### [facility] [address] [place], [address] Chloride [Moles/Vol] 107 mmol/L Normal 98-107 [facility] Comment on above: Performed By: #### L 500.2500 #### [facility] [address] [place], [address] CO2 [Moles/Vol] 27.0 mmol/L Normal 21.0-32.0 [facility] Comment on above: Performed By: #### L 500.2500 #### [facility] [address] [place], [address] Creatinine [Mass/Vol] 1.07 mg/dL High 0.55-1.02 [facility] Comment on above: Result Comment: The validity of the calculated GFR GFRAA in patients over 70 years has not been determined. Clinical correlation is essential. Performed By: #### L 500.2500 #### [facility] [address] [place], [address] EST GFR - AA 65 mL/min Normal >60 [facility] Comment on above: Result Comment: Afri can Moroccan GFR Calc Performed By: #### L 500.2500 #### [facility] [address] [place], [address] GAP 7 Normal 5-15 [facility] Comment on above: Performed By: #### L 500.2500 #### [facility] [address] [place], [address] GFR/1.73 sq M.predicted among non-blacks MDRD (S/P/Bld) [Vol rate/Area] 54 mL/min/{1.73_m2} Low >60 [facility] Comment on above: Result Comment: Non- GFR Calc Performed By: #### L 500.2500 #### [facility] [address] [place], [address] Glucose [Mass/Vol] 110 mg/dL High 74-106 [facility] Comment on above: Result Comment: Fast ing Glucose result from 100 to 125 mg/dL suggests IMPAIRED HOMEOSTASIS per A.D.A. criteria. Performed By: #### L 500.2500 #### [facility] [address] [place], [address] Potassium [Moles/Vol] 3.6 mmol/L Normal 3.5-5.1 [facility] Comment on above: Performed By: #### L 500.2500 #### [facility] [address] [place], [address] Sodium [Moles/Vol] 141 mmol/L Normal 136-145 [facility] Comment on above: Performed By: #### L 500.2500 #### [facility] [address] [place], [address] Urea nitrogen [Mass/Vol] 9 mg/dL Normal 7-18 [facility] Comment on above: Performed By: #### L 500.2500 #### [facility] [address] [place], [address] Basic Metabolic Profile (BMP )on 05-07-2024 BUN/CRE 12.3 RATIO Normal 10-20 [facility] Comment on above: Performed By: #### L 500.2500 #### [facility] [address] [place], [address] CA,Total 9.5 mg/dL Normal 8.5-10.1 [facility] Comment on above: Performed By: #### L 500.2500 #### [facility] [address] [place], [address] Chloride [Moles/Vol] 109 mmol/L High 98-107 [facility] Comment on above: Performed By: #### L 500.2500 #### [facility] [address] [place], [address] CO2 [Moles/Vol] 27.0 mmol/L Normal 21.0-32.0 [facility] Comment on above: Performed By: #### L 500.2500 #### [facility] [address] [place], [address] Creatinine [Mass/Vol] 0.98 mg/dL Normal 0.55-1.02 [facility] Comment on above: Result Comment: The validity of the calculated GFR GFRAA in patients over 70 years has not been determined. Clinical correlation is essential. Performed By: #### L 500.2500 #### [facility] [address] [place], [address] EST GFR - AA 72 mL/min Normal >60 [facility] Comment on above: Result Comment: Afri can Moroccan GFR Calc Performed By: #### L 500.2500 #### [facility] [address] [place], [address] GAP 7 Normal 5-15 [facility] Comment on above: Performed By: #### L 500.2500 #### [facility] [address] [place], [address] GFR/1.73 sq M.predicted among non-blacks MDRD (S/P/Bld) [Vol rate/Area] 60 mL/min/{1.73_m2} Normal >60 [facility] Comment on above: Result Comment: Non- GFR Calc Performed By: #### L 500.2500 #### [facility] [address] [place], [address] Glucose [Mass/Vol] 107 mg/dL High 74-106 [facility] Comment on above: Result Comment: Fast ing Glucose result from 100 to 125 mg/dL suggests IMPAIRED HOMEOSTASIS per A.D.A. criteria. Performed By: #### L 500.2500 #### [facility] [address] [place], [address] Potassium [Moles/Vol] 3.8 mmol/L Normal 3.5-5.1 [facility] Comment on above: Performed By: #### L 500.2500 #### [facility] [address] [place], [address] Sodium [Moles/Vol] 143 mmol/L Normal 136-145 [facility] Comment on above: Performed By: #### L 500.2500 #### [facility] [address] [place], [address] Urea nitrogen [Mass/Vol] 12 mg/dL Normal 7- [facility] Comment on above: Performed By: #### L 500.2500 #### [facility] [address], [address] Office Visit Reporton 2024 Office Visit Report [facility] [address] [address] OFFICE VISIT Date of Service: 05/07/24 MR#: [id number] Acct: [id number] Patient: ESTEFANIA GODOY Rep #: [id number] : 1955 Provider: GINETTE NURSE Age/Sex: 68/F Location: [facility] [place] Status: Signed Intake Vital Signs 03/27/24 14:29 05/07/24 14:19 05/07/24 14:19 05/07/24 14:20 05/07/24 14:20 Height 5 ft 2 in BP 140/92 H 140/90 H 166/92 H 168/87 H Blood Pressure Location Lt brachial Rt brachial Lt brachial Rt brachial Position Sitting Sitting Sitting Sitting Pulse 62 62 70 70 Pulse Source Monitor Monitor Comment pt bp cuff PT BP CUFF Intake Visit Reasons: BP MONITOR CHECK Chief Complaint: bp check Allergies No Known Allergies Allergy (Verified 03/27/24 14:26) Medications ???Medication ???Instructions ???Recorded ???Confirmed ???Type cholecalciferol (vitamin D3) 50 2,000 unit PO BID 07/03/17 05/07/24 History mcg (2,000 unit) capsule calcium carbonate (Calcium 600) 600 mg PO QDAY #90 tabs 10/19/22 05/07/24 Rx albuterol sulfate 90 mcg/actuation 2 puff inhalation Q6H PRN 11/09/23 05/07/24 Rx aerosol inhaler shortness of breath or wheezing #6.7 grams amlodipine 10 mg tablet 10 mg PO DAILY #90 tabs 12/08/23 05/07/24 Rx losartan 100 mg tablet 100 mg PO DAILY #90 TABLETS 12/08/23 05/07/24 Rx clonazepam 0.5 mg tablet 0.5 mg PO DAILY PRN Anxiety #30 03/21/24 05/07/24 Rx tabs duloxetine 60 mg capsule,delayed 60 mg PO DAILY #90 caps 03/21/24 05/07/24 Rx release pantoprazole 40 mg tablet,delayed 40 mg PO DAILY #90 tabs 03/25/24 05/07/24 Rx release potassium chloride 20 mEq 40 meq (2 x 20 mEq) PO BID 3 03/28/24 05/07/24 Rx tablet,extended months #360 tabs release(part/cryst) (Klor-Con M) metoprolol succinate 50 mg 50 mg PO QDAY 1 month #30 tabs 05/07/24 Rx tablet,extended release 24 hr Have you fallen in the past year?: No Nurse's Note: pt presents for BP check. has stated that she is compliant with the recent medication changes. Went through pt medication list per list taking metoprolol 50mg po qd, losartan 100mg po qd, amlodipine 10mg po qd. has had no HTN sx. states takes BP at home running around 166/92, today reading manual Left arm 140/90, right 140/92 heart 62. pt states was NOT taking 10mg of amlodipine was only taking 5mg po qd. per verbal from Dr. Hu go back to 10mg po qd and monitor bp, heart rate, and edema. call in one week with readings. Assessment and Plan Assessment and Plan (1) Hypertension: Status: Chronic Qualifiers: Hypertension type: unspecified Qualified Code(s): I10 - Essential (primary) hypertension Clinical Quality Measures Falls Risk Screening/Assistive Devices Have you fallen in the past year?: No 05/08/24 1315 Date Aissatou Meadeigner Signature: Date (if applicable) CC: Normal [facility] Basic Metabolic Profile (BMP )on 04-22-2024 BUN/CRE 11.6 RATIO Normal 10-20 [facility] Comment on above: Performed By: #### L 500.2500 #### [facility] [address] [place], [address] CA,Total 9.2 mg/dL Normal 8.5-10.1 [facility] Comment on above: Performed By: #### L 500.2500 #### [facility] [address] [place], [address] Chloride [Moles/Vol] 109 mmol/L High 98-107 [facility] Comment on above: Performed By: #### L 500.2500 #### [facility] [address] [place], [address] CO2 [Moles/Vol] 26.0 mmol/L Normal 21.0-32.0 [facility] Comment on above: Performed By: #### L 500.2500 #### [facility] [address] [place], [address] Creatinine [Mass/Vol] 0.95 mg/dL Normal 0.55-1.02 [facility] Comment on above: Result Comment: The validity of the calculated GFR GFRAA in patients over 70 years has not been determined. Clinical correlation is essential. Performed By: #### L 500.2500 #### [facility] [address] [place], [address] EST GFR - AA 75 mL/min Normal >60 [facility] Comment on above: Result Comment: Afri can Moroccan GFR Calc Performed By: #### L 500.2500 #### [facility] [address] [place], [address] GAP 4 Low 5-15 [facility] Comment on above: Performed By: #### L 500.2500 #### [facility] [address] [place], [address] GFR/1.73 sq M.predicted among non-blacks MDRD (S/P/Bld) [Vol rate/Area] 62 mL/min/{1.73_m2} Normal >60 [facility] Comment on above: Result Comment: Non- GFR Calc Performed By: #### L 500.2500 #### [facility] [address] [place], [address] Glucose [Mass/Vol] 137 mg/dL High 74-106 [facility] Comment on above: Result Comment: Fast ing Glucose result greater than or equal to 126 mg/dL suggests DIABETES MELLITUS per A.D.A. criteria. Performed By: #### L 500.2500 #### [facility] [address] [place], [address] Potassium [Moles/Vol] 3.3 mmol/L Low 3.5-5.1 [facility] Comment on above: Performed By: #### L 500.2500 #### [facility] [address] [place], [address] Sodium [Moles/Vol] 139 mmol/L Normal 136-145 [facility] [facility] Comment on above: Performed By: #### L 500.2500 #### [facility] [address] [place], [address] Urea nitrogen [Mass/Vol] 11 mg/dL Normal 7-18 [facility] Comment on above: Performed By: #### L 500.2500 #### [facility] [address] [place], [address] Basic Metabolic Profile (BMP )on 04-09-2024 BUN/CRE 20.0 RATIO Normal 10-20 [facility] Comment on above: Performed By: #### L 503.6005 #### [facility] [address] [place], [address] CA,Total 9.2 mg/dL Normal 8.5-10.1 [facility] Comment on above: Performed By: #### L [id number] #### [facility] [address] [place], [address] Chloride [Moles/Vol] 106 mmol/L Normal 98-107 [facility] Comment on above: Performed By: #### L [id number] #### [facility] [address] [place], [address] CO2 [Moles/Vol] 29.0 mmol/L Normal 21.0-32.0 [facility] Comment on above: Performed By: #### L 503.6005 #### [facility] [address] [place], [address] Creatinine [Mass/Vol] 0.90 mg/dL Normal 0.55-1.02 [facility] Comment on above: Result Comment: The validity of the calculated GFR GFRAA in patients over 70 years has not been determined. Clinical correlation is essential. Performed By: #### L 503.6005 #### [facility] [address] [place], [address] EST GFR - AA 79 mL/min Normal >60 [facility] Comment on above: Result Comment: Afri can Moroccan GFR Calc Performed By: #### L 503.6005 #### [facility] [address] [place], [address] GAP 7 Normal 5-15 [facility] Comment on above: Performed By: #### L 503.6005 #### [facility] [address] [place], [address] GFR/1.73 sq M.predicted among non-blacks MDRD (S/P/Bld) [Vol rate/Area] 66 mL/min/{1.73_m2} Normal >60 [facility] Comment on above: Result Comment: Non- GFR Calc Performed By: #### L 503.6005 #### [facility] [address] [place], [address] Glucose [Mass/Vol] 121 mg/dL High 74-106 [facility] Comment on above: Result Comment: Fast ing Glucose result from 100 to 125 mg/dL suggests IMPAIRED HOMEOSTASIS per A.D.A. criteria. Performed By: #### L 503.6005 #### [facility] [address] [place], [address] Potassium [Moles/Vol] 3.0 mmol/L Low 3.5-5.1 [facility] Comment on above: Performed By: #### L 503.6005 #### [facility] [address] [place], [address] Sodium [Moles/Vol] 142 mmol/L Normal 136-145 [facility] Comment on above: Performed By: #### L [id number] #### [facility] [address] [place], [address] Urea nitrogen [Mass/Vol] 18 mg/dL Normal 7-18 [facility] Comment on above: Performed By: #### L 503.6005 #### [facility] [address] [place], [address] Basic Metabolic Profile (BMP )on 03-27-2024 BUN/CRE 20.2 RATIO High 10-20 [facility] Comment on above: Performed By: #### L 503.6005 #### [facility] [address] [place], [address] CA,Total 9.6 mg/dL Normal 8.5-10.1 [facility] Comment on above: Performed By: #### L [id number] #### [facility] [address] [place], [address] Chloride [Moles/Vol] 105 mmol/L Normal 98-107 [facility] Comment on above: Performed By: #### L [id number] #### [facility] [address] [place], [address] CO2 [Moles/Vol] 32.0 mmol/L Normal 21.0-32.0 [facility] Comment on above: Performed By: #### L 503.6005 #### [facility] [address] [place], [address] Creatinine [Mass/Vol] 1.19 mg/dL High 0.55-1.02 [facility] Comment on above: Result Comment: The validity of the calculated GFR GFRAA in patients over 70 years has not been determined. Clinical correlation is essential. Performed By: #### L 503.6005 #### [facility] [address] [place], [address] EST GFR - AA 58 mL/min Low >60 [facility] Comment on above: Result Comment: Afri can Moroccan GFR Calc Performed By: #### L [id number] #### [facility] [address] [place], [address] GAP 5 Normal 5-15 [facility] Comment on above: Performed By: #### L 503.6005 #### [facility] [address] [place], [address] GFR/1.73 sq M.predicted among non-blacks MDRD (S/P/Bld) [Vol rate/Area] 48 mL/min/{1.73_m2} Low >60 [facility] Comment on above: Result Comment: Non- GFR Calc Performed By: #### L 503.6005 #### [facility] [address] [place], [address] Glucose [Mass/Vol] 97 mg/dL Normal 74-106 [facility] Comment on above: Performed By: #### L 503.6005 #### [facility] [address] [place], [address] Potassium [Moles/Vol] 3.2 mmol/L Low 3.5-5.1 [facility] Comment on above: Performed By: #### L 503.6005 #### [facility] [address] [place], [address] Sodium [Moles/Vol] 142 mmol/L Normal 136-145 [facility] Comment on above: Performed By: #### L 503.6005 #### [facility] [address] [place], [address] Urea nitrogen [Mass/Vol] 24 mg/dL High 7-18 [facility] Comment on above: Performed By: #### L 503.6005 #### [facility] [address] [place], [address] Internal Medicine Office Vis itomaynor 03-27-2024 Internal Medicine Office Visit [facility] [address] [place] [address] [place] [address] OFFICE VISIT Date of Service: 03/27/24 MR#: [id number] Acct: [id number] Name: ESTEFANIA GODOY Rep #: [id number] : 1955 Provider: Dr. Aissatou quintana MD Age/Sex: 68/F Location: [facility] [place].[facility] Status: Signed Intake Vital Signs 03/21/24 09:55 03/27/24 14:29 Height 5 ft 2 in 5 ft 2 in Weight: 170 lb BMI 31.1 BP 118/62 Blood Pressure Location Lt brachial Respiration 16 Pulse 105 H Pulse Source Monitor Temp 97.4 F L Temp Source Temporal Pulse Oximetry (%) 97 Oxygen Delivery Method room air Intake Visit Reasons: Follow Up Chief Complaint: Follow-up chronic conditions Security Director Required: No Accompanied by: Self Is patient in pain?: No Allergies No Known Allergies Allergy (Verified 03/27/24 14:26) Medications ???Medication ???Instructions ???Recorded ???Confirmed ???Type cholecalciferol (vitamin D3) 50 2,000 unit PO BID 07/03/17 03/27/24 History mcg (2,000 unit) capsule calcium carbonate (Calcium 600) 600 mg PO QDAY #90 tabs 10/19/22 03/27/24 Rx potassium chloride 20 mEq 20 meq PO BID #270 tabs 11/03/23 03/27/24 Rx tablet,extended release(part/cryst) (Klor-Con M) albuterol sulfate 90 mcg/actuation 2 puff inhalation Q6H PRN 11/09/23 03/27/24 Rx aerosol inhaler shortness of breath or wheezing #6.7 grams amiloride 5 mg-hydrochlorothiazi de 0.5 tab PO DAILY #90 tabs 12/08/23 03/27/24 Rx 50 mg tablet amlodipine 10 mg tablet 10 mg PO DAILY #90 tabs 12/08/23 03/27/24 Rx losartan 100 mg tablet 100 mg PO DAILY #90 TABLETS 12/08/23 03/27/24 Rx clonazepam 0.5 mg tablet 0.5 mg PO DAILY PRN Anxiety #30 03/21/24 03/27/24 Rx tabs duloxetine 60 mg capsule,delayed 60 mg PO DAILY #90 caps 03/21/24 03/27/24 Rx release pantoprazole 40 mg tablet,delayed 40 mg PO DAILY #90 tabs 03/25/24 03/27/24 Rx release Have you fallen in the past year?: No PFSH Medical History Chronic cough Bronchitis Sinusitis Cough JEANNA (generalized anxiety disorder) Obesity (BMI 30-39.9) Open wound of skin GERD (gastroesophageal reflux disease) Change in bowel movement Burning with urination Vitamin deficiency Generalized muscle ache Panic disorder Major depressive disorder COVID-19 Wears glasses Depression Anxiety Sore on scalp Restless legs History of ulceration Gastric reflux Non-smoker CPAP (continuous positive airway pressure) dependence History of echocardiogram Abnormal barium swallow Hypokalemia CHANTELL (acute kidney injury) Arm pain Eye pain Difficulty swallowing Dermatitis Renal stones HPV (human papilloma virus) infection history of kidney stone removal High cholesterol HTN (hypertension) Surgical History S/P right rotator cuff repair Hx of colonoscopy History of hemorrhoidectomy History of appendectomy History of hysterectomy History of cholecystectomy Family History Father Alcoholism Colon cancer Heart disease Hypertension High cholesterol Grandfather Heart disease Myocardial infarction Hypertension High cholesterol Sister Schizophrenia Mental disorder psychiatric care Diabetes Other Anxiety Autoimmune disorder Depression Social History household members: none current occupational status: 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 No acute concerns at this time. History of hypertension, blood pressure today at 118/62 mmHg. Currently on amiloride hydrochlorothiazide, amlodipine and osartan. Taking medication as prescribed. No chest pain, pa lpitation or shortness of breath. Mood schmidt, she states that she is doing well. Follows up with psychiatry, currently on duloxetine and clonazepam as needed. Feels good. Other chronic medical conditions are stable. ROS Const Constitutional: No body ache, chills, excessive sweating, fatigue, fever(s), frequent falls, headache(s), snoring, weakness or change in appetite Eyes Eyes: No blurry vision, change in vision, bulging eyes, (more content not included)... Normal [facility] Lipid Profileon 03-27-2024 Cholesterol [Mass/Vol] 217 mg/dL High 200 [facility] Comment on above: Result Comment: <200 mg/dL Desirable 200-240 mg/dL Borderline >240 mg/dL High Risk Performed By: #### L 091.1140 #### [facility] [address] [place], [place], [address] Cholesterol in HDL [Mass/Vol] 60 mg/dL Normal [facility] Comment on above: Result Comment: The drugs N-Acetylcysteine and Metamizole may falsely depress this assay. Reference Range HDL <40 mg/dL Low HDL Cholesterol HDL >or= 60 mg/dL High HDL Cholesterol Performed By: #### L 461.6792 #### [facility] [address] [place], [address] Cholesterol in LDL [Mass/Vol] 113 mg/dL Normal 0-130 [facility] Comment on above: Performed By: #### L 503.6005 #### [facility] [address] [place], [address] Cholesterol in VLDL [Mass/Vol] 44 mg/dL High 5-40 [facility] Comment on above: Performed By: #### L 503.6005 #### [facility] [address] [place], [address] Triglyceride [Mass/Vol] 218 mg/dL High [facility] Comment on above: Result Comment: The drugs N-Acetylcysteine and Metamizole may falsely depress this assay. Serum Triglycerides Reference Interval Normal <150 mg/dL Borderline high 150 - 199 mg/dL High 200 - 499 mg/dL Very High > or = 500 mg/dL Performed By: #### L 503.6005 #### [facility] [address] [place], [place], [address] MR/BMS.BPon 03-21-2024 MR/BMS.BP [address], [facility] [address] [place], [place] [address] OFFICE VISIT Date of Service: 03/21/24 MR#: [id number] Acct: [id number] Name: ESTEFANIA GODOY Rep #: [id number] : 1955 Provider: Dr. Raul Campbell se, DO Age/Sex: 68/F Location: [facility] [place].BP Status: Signed Intake Vital Signs 12/20/23 10:01 03/21/24 09:55 Height 5 ft 2 in 5 ft 2 in BP 124/86 H Blood Pressure Location Rt brachial Position Sitting Respiration 16 Pulse 89 Pulse Source Monitor BP Intake Visit Reasons: 3 M FU Accompanied by: Self Allergies No Known Allergies Allergy (Verified 03/21/24 09:59) Medications ???Medication ???Instructions ???Recorded ???Confirmed ???Type cholecalciferol (vitamin D3) 50 2,000 unit PO BID 07/03/17 03/21/24 History mcg (2,000 unit) capsule calcium carbonate (Calcium 600) 600 mg PO QDAY #90 tabs 10/19/22 03/21/24 Rx pantoprazole 40 mg tablet,delayed 40 mg PO DAILY #90 tabs 08/11/23 03/21/24 Rx release potassium chloride 20 mEq 20 meq PO BID #270 tabs 11/03/23 03/21/24 Rx tablet,extended release(part/cryst) (Klor-Con M) albuterol sulfate 90 mcg/actuation 2 puff inhalation Q6H PRN 11/09/23 03/21/24 Rx aerosol inhaler shortness of breath or wheezing #6.7 grams amiloride 5 mg-hydrochlorothiazi de 0.5 tab PO DAILY #90 tabs 12/08/23 03/21/24 Rx 50 mg tablet amlodipine 10 mg tablet 10 mg PO DAILY #90 tabs 12/08/23 03/21/24 Rx losartan 100 mg tablet 100 mg PO DAILY #90 TABLETS 12/08/23 03/21/24 Rx clonazepam 0.5 mg tablet 0.5 mg PO DAILY PRN Anxiety #30 03/21/24 03/21/24 Rx tabs duloxetine 60 mg capsule,delayed 60 mg PO DAILY #90 caps 03/21/24 03/21/24 Rx release Have you [facility] in the past year?: [facility] History (Updated 01/01/24 @ 14:[address] Aissatou Hu MD) Chronic cough Bronchitis Sinusitis Cough JEANNA (generalized anxiety disorder) Obesity (BMI 30-39.9) Open wound of skin GERD (gastroesophageal reflux disease) Change in bowel movement Burning with urination Vitamin deficiency Generalized muscle ache Panic disorder Major depressive disorder COVID-19 Wears glasses Depression Anxiety Sore on scalp Restless legs History of ulceration Gastric reflux Non-smoker CPAP (continuous positive airway pressure) dependence History of echocardiogram Abnormal barium swallow Hypokalemia CHANTELL (acute kidney injury) Arm pain Eye pain Difficulty swallowing Dermatitis Renal stones HPV (human papilloma virus) infection history of kidney stone removal High cholesterol HTN (hypertension) Surgical History S/P right rotator cuff repair Hx of colonoscopy History of hemorrhoidectomy History of appendectomy History of hysterectomy History of cholecystectomy Family History Father Alcoholism Colon cancer Heart disease Hypertension High cholesterol Grandfather Heart disease Myocardial infarction Hypertension High cholesterol Sister Schizophrenia Mental disorder psychiatric care Diabetes Other Anxiety Autoimmune disorder Depression Social History household members: none 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 occupational 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 Patient reports that she has been not too bad. Has had some more contact with her sister's recently which has been going well. Does have a history of significant interpersonal conflict with them. Continues to follows with Ratna Ribeiro regularly for counseling. Was invited to [place] muñ[place] with sister's but is cautious about this. Occasionally doing some volunteering at [employer] Did have a a sleep study in recent past and did get an APAP. Since getting, doesn't think that she is sleeping much better. Denies SI/HI or AVH. Review of Systems Constitutional Reports: fatigue; Denies: fever(s), chills or change in weight Eyes Denies: change in vision or blurry vision Ears, Nose, Mouth, Throat Denies: throat pain, neck pain or change in hearing Cardiovascular Denies: chest pain, palpitations or dyspnea Respiratory Denies: dyspnea, cough or whee (more content not included)... Normal [facility] MR/BMS.BPon 12-20-2023 MR/BMS.BP [facility], [address] [place] [id number] OFFICE VISIT Date of Service: 12/20/23 MR#: [id number] Acct: [id number] Name: ESTEFANIA GODOY Rep #: [id number] : 1955 Provider: Dr. Raul Campbell se, DO Age/Sex: 68/F Location: [facility] [place].BP Status: Signed Intake Vital Signs 10/18/23 10:05 12/13/23 09:52 12/20/23 09:59 12/20/23 10:01 Height 5 ft 2 in 5 ft 2 in 5 ft 2 in 5 ft 2 in Weight: 170 lb 170 lb BMI 31.1 31.1 BP 124/78 H 129/81 H Blood Pressure Location Lt brachial Position Sitting Respiration 16 17 Pulse 88 88 Pulse Source Monitor Temp 97.7 F L Pulse Oximetry (%) 98 98 Oxygen Delivery Method room air BP Intake Visit Reasons: 2 M FU Accompanied by: Self Allergies No Known Allergies Allergy (Verified 12/20/23 10:00) Medications ???Medication ???Instructions ???Recorded ???Confirmed ???Type cholecalciferol (vitamin D3) 50 2,000 unit PO BID 07/03/17 12/20/23 History mcg (2,000 unit) capsule calcium carbonate (Calcium 600) 600 mg PO QDAY #90 tabs 10/19/22 12/20/23 Rx pantoprazole 40 mg tablet,delayed 40 mg PO DAILY #90 tabs 08/11/23 12/20/23 Rx release clonazepam 0.5 mg tablet 0.5 mg PO DAILY PRN Anxiety #30 10/18/23 12/20/23 Rx tabs duloxetine 60 mg capsule,delayed 60 mg PO DAILY #90 caps 10/18/23 12/20/23 Rx release potassium chloride 20 mEq 20 meq PO BID #270 tabs 11/03/23 12/20/23 Rx tablet,extended release(part/cryst) (Klor-Con M) albuterol sulfate 90 mcg/actuation 2 puff inhalation Q6H PRN 11/09/23 12/20/23 Rx aerosol inhaler shortness of breath or wheezing #6.7 grams amiloride 5 mg-hydrochlorothiazi de 0.5 tab PO DAILY #90 tabs 12/08/23 12/13/23 Rx 50 mg tablet amlodipine 10 mg tablet 10 mg PO DAILY #90 tabs 12/08/23 12/20/23 Rx losartan 100 mg tablet 100 mg PO DAILY #90 TABLETS 12/08/23 12/20/23 Rx Have you fallen in the past year?: No PFSH Medical History Bronchitis Sinusitis Cough JEANNA (generalized anxiety disorder) Obesity (BMI 30-39.9) Open wound of skin GERD (gastroesophageal reflux disease) Change in bowel movement Burning with urination Vitamin deficiency Generalized muscle ache Panic disorder Major depressive disorder COVID-19 Wears glasses Depression Anxiety Sore on scalp Restless legs History of ulceration Gastric reflux Non-smoker CPAP (continuous positive airway pressure) dependence History of echocardiogram Abnormal barium swallow Hypokalemia CHANTELL (acute kidney injury) Arm pain Eye pain Difficulty swallowing Dermatitis Renal stones HPV (human papilloma virus) infection history of kidney stone removal High cholesterol HTN (hypertension) Surgical History S/P right rotator cuff repair Hx of colonoscopy History of hemorrhoidectomy History of appendectomy History of hysterectomy History of cholecystectomy Family History Father Alcoholism Colon cancer Heart disease Hypertension High cholesterol Grandfather Heart disease Myocardial infarction Hypertension High cholesterol Sister Schizophrenia Mental disorder psychiatric care Diabetes Other Anxiety Autoimmune disorder Depression Social History household members: none 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 occupational 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 Patient reports that she has not been up to a lot in the recent past. Has gone over to see some bands in [place] area but has been doing less frequently. Has been volunteering with [employer] Continues to have some intermittent problems with her CPAP for sleep apnea. Will be having another sleep study ordered in the near future. Does have some significant fatigue throughout the day. Does not believe this to be secondary to depression, and it is a manifestation of her sleep disorder. Recently turned 68 years old. Continues to have some problems with bowels. Still follows with Ratna Ribeiro nearly every month. Did trial buspirone but it was too sedating so therefore stopped. Denies SI/HI or AVH. Review of Sy (more content not included)... Normal [facility] Internal Medicine Office Vis iton 12-13-2023 Internal Medicine Office Visit [facility] [address] [place] [address] [place] [address] OFFICE VISIT Date of Service: 12/13/23 MR#: [id number] Acct: [id number] Name: ESTEFANIA GODOY Rep #: [id number] : 1955 Provider: Dr. Aissatou quintana MD Age/Sex: 68/F Location: [facility] [place].[facility] Status: Signed Intake Vital Signs 09/11/23 09:49 11/09/23 14:09 12/13/23 09:52 Height 5 ft 2 in 5 ft 2 in 5 ft 2 in Weight: 170 lb BMI 31.1 BP 124/78 H Blood Pressure Location Lt brachial Position Sitting Respiration 16 Pulse 88 Pulse Source Monitor Temp 97.7 F L Temp Source Temporal Pulse Oximetry (%) 98 Oxygen Delivery Method room air Intake Visit Reasons: 3 M FU Chief Complaint: 3m f/.u Security Director Required: No Accompanied by: Self Is patient in pain?: No Allergies No Known Allergies Allergy (Verified 12/13/23 09:48) Medications ???Medication ???Instructions ???Recorded ???Confirmed ???Type cholecalciferol (vitamin D3) 50 2,000 unit PO BID 07/03/17 12/13/23 History mcg (2,000 unit) capsule calcium carbonate (Calcium 600) 600 mg PO QDAY #90 tabs 10/19/22 12/13/23 Rx pantoprazole 40 mg tablet,delayed 40 mg PO DAILY #90 tabs 08/11/23 12/13/23 Rx release clonazepam 0.5 mg tablet 0.5 mg PO DAILY PRN Anxiety #30 10/18/23 12/13/23 Rx tabs duloxetine 60 mg capsule,delayed 60 mg PO DAILY #90 caps 10/18/23 12/13/23 Rx release potassium chloride 20 mEq 20 meq PO BID #270 tabs 11/03/23 12/13/23 Rx tablet,extended release(part/cryst) (Klkwame-Con Yao) albuterol sulfate 90 mcg/actuation 2 puff inhalation Q6H PRN 11/09/23 12/13/23 Rx aerosol inhaler shortness of breath or wheezing #6.7 grams amiloride 5 mg-hydrochlorothiazi de 0.5 tab PO DAILY #90 tabs 12/08/23 12/13/23 Rx 50 mg tablet amlodipine 10 mg tablet 10 mg PO DAILY #90 tabs 12/08/23 12/13/23 Rx losartan 100 mg tablet 100 mg PO DAILY #90 TABLETS 12/08/23 12/13/23 Rx Have you fallen in the past year?: No PFSH Medical History Bronchitis Sinusitis Cough JEANNA (generalized anxiety disorder) Obesity (BMI 30-39.9) Open wound of skin GERD (gastroesophageal reflux disease) Change in bowel movement Burning with urination Vitamin deficiency Generalized muscle ache Panic disorder Major depressive disorder COVID-19 Wears glasses Depression Anxiety Sore on scalp Restless legs History of ulceration Gastric reflux Non-smoker CPAP (continuous positive airway pressure) dependence History of echocardiogram Abnormal barium swallow Hypokalemia CHANTELL (acute kidney injury) Arm pain Eye pain Difficulty swallowing Dermatitis Renal stones HPV (human papilloma virus) infection history of kidney stone removal High cholesterol HTN (hypertension) Surgical History S/P right rotator cuff repair Hx of colonoscopy History of hemorrhoidectomy History of appendectomy History of hysterectomy History of cholecystectomy Family History Father Alcoholism Colon cancer Heart disease Hypertension High cholesterol Grandfather Heart disease Myocardial infarction Hypertension High cholesterol Sister Schizophrenia Mental disorder psychiatric care Diabetes Other Anxiety Autoimmune disorder Depression Social History household members: none 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 occupational status: 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 No acute concerns at this time. Was seen a few weeks ago and managed for acute bronchitis/upper respiratory infection. She states that the cough is still present but improving. Taste is also returning. No difficulty breathing. History of hypertension, blood pressure today at 124/78 mmHg. No syncopal or near syncopal episodes. No chest pain reported. Following up with GI and has an appointment shortly. Still reports concerns with her bowel movements. She states that she was on the medication which helped briefly but not consistently. Other chronic medical conditions are stable. ROS Const Constitutional: No body ache, chills, excessive sweating, fatigue (more content not included)... Normal [facility] Chest 1 Viewon 11-09-2023 Chest 1 View [facility] [address] [place], [place] [address] Chest 1 View MR#: [id number] Acct: [id number] Name: ESTEFANIA GODOY Rep #: [id number] : 1955 F 67 From: Mike upton MD PCP: Dr. Aissatou Hu MD Status: REG [facility] Study: Chest 1 View Date of Exam: 11/09/23 Exam# [id number] Ordering Dr: Aissatou Hu MD [id number] INDICATION: Cough EXAMINATION/TECHNIQU E: X-RAY - XR Chest 1 View COMPARISON: No relevant prior comparison study available ____ FINDINGS: LINES/DEVICES: None. LUNGS: The lungs are well expanded. No consolidation, edema or effusion. No pneumothorax. MEDIASTINUM AND CARDIOVASCULAR STRUCTURES: Cardiac silhouette not enlarged. Central airways and mediastinal contour are unremarkable. BONES AND SOFT TISSUES: No acute abnormality. RAD/Chest 1 View IMPRESSION: No acute pulmonary finding. Electronically Signed: Mike Webb MD at 23:16 EDT , CC: Dr. Aissatou Hu MD Gin Clerk: Signed Normal [facility] Internal Medicine Office Vis iton 11-09-2023 Internal Medicine Office Visit [facility] [address] [place] [address] [place] [address] OFFICE VISIT Date of Service: 11/09/23 MR#: [id number] Acct: [id number] Name: ESTEFANIA GODOY Rep #: [id number] : 1955 Provider: Dr. Aissatou quintana MD Age/Sex: 67/F Location: [facility] [place].[facility] Status: Signed Intake Vital Signs 10/18/23 10:05 11/09/23 14:09 Height 5 ft 2 in 5 ft 2 in Weight: 172 lb BMI 31.4 BP 126/86 H Blood Pressure Location Lt brachial Position Sitting Respiration 17 Pulse 92 Pulse Source Monitor Temp 97.8 F Temp Source Temporal Pulse Oximetry (%) 97 Oxygen Delivery Method room air Intake Visit Reasons: EARS CLOGGED / COUGH Chief Complaint: EARS CLOGGED/COUGH Is patient in pain?: No Allergies No Known Allergies Allergy (Verified 11/09/23 14:13) Medications ???Medication ???Instructions ???Recorded ???Confirmed ???Type cholecalciferol (vitamin D3) 50 2,000 unit PO BID 07/03/17 11/09/23 History mcg (2,000 unit) capsule calcium carbonate (Calcium 600) 600 mg PO QDAY #90 tabs 10/19/22 11/09/23 Rx amiloride 5 mg-hydrochlorothiazi de 0.5 tab PO DAILY #90 tabs 10/21/22 11/09/23 Rx 50 mg tablet losartan 100 mg tablet 100 mg PO DAILY #90 TABLETS 03/25/24 08/01/24 Rx amlodipine 10 mg tablet 10 mg PO DAILY #90 tabs 08/11/23 11/09/23 Rx pantoprazole 40 mg tablet,delayed 40 mg PO DAILY #90 tabs 08/11/23 11/09/23 Rx release clonazepam 0.5 mg tablet 0.5 mg PO DAILY PRN Anxiety #30 10/18/23 11/09/23 Rx tabs duloxetine 60 mg capsule,delayed 60 mg PO DAILY #90 caps 10/18/23 11/09/23 Rx release potassium chloride 20 mEq 20 meq PO BID #270 tabs 11/03/23 11/09/23 Rx tablet,extended release(part/cryst) (Klor-Con M) albuterol sulfate 90 mcg/actuation 2 puff inhalation Q6H PRN 11/09/23 11/09/23 Rx aerosol inhaler shortness of breath or wheezing #6.7 grams benzonatate 100 mg capsule 100 mg PO BID-TID PRN cough #90 11/09/23 11/09/23 Rx caps buspirone 7.5 mg tablet 7.5 mg PO BID PRN 11/09/23 History prednisone 20 mg tablet 40 mg (2 x 20 mg) PO DAILY #10 tabs 11/09/23 11/09/23 Rx Have you fallen in the past year?: No PFSH Medical History (Updated 11/09/23 @ 14:[address] Aissatou Hu MD) Bronchitis Sinusitis Cough JEANNA (generalized anxiety disorder) Obesity (BMI 30-39.9) Open wound of skin GERD (gastroesophageal reflux disease) Change in bowel movement Burning with urination Vitamin deficiency Generalized muscle ache Panic disorder Major depressive disorder COVID-19 Wears glasses Depression Anxiety Sore on scalp Restless legs History of ulceration Gastric reflux Non-smoker CPAP (continuous positive airway pressure) dependence History of echocardiogram Abnormal barium swallow Hypokalemia CHANTELL (acute kidney injury) Arm pain Eye pain Difficulty swallowing Dermatitis Renal stones HPV (human papilloma virus) infection history of kidney stone removal High cholesterol HTN (hypertension) Surgical History S/P right rotator cuff repair Hx of colonoscopy History of hemorrhoidectomy History of appendectomy History of hysterectomy History of cholecystectomy Family History Father Alcoholism Colon cancer Heart disease Hypertension High cholesterol Grandfather Heart disease Myocardial infarction Hypertension High cholesterol Sister Schizophrenia Mental disorder psychiatric care Diabetes Other Anxiety Autoimmune disorder Depression Social History household members: none 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 She reports cough which has been ongoing for about 6 weeks. Initial feeling of unwell however, this has improved. Waxes and wanes. Did a home COVID test which came back negative. No known sick contact. No chills, fever or otherwise feeling of unwell. Has tried some [id number] measures without any significant improvement. History of recurrent bronchitis. ROS Const Constitutional: No body ache, chills, excessive sweating, fatigue, fever(s), frequent falls, headache(s), snoring, (more content not included)... Normal [facility] CBC W/Diff, Automatedon 07-2 -2023 Absolute Lymph 2.02 X10 3/uL Normal 0.83-4.51 [facility] Comment on above: Performed By: #### L 400.0001 #### [facility] [address] [facility] [place], [address] Absolute Neut 3.5 X10 3/uL Normal 2.0-7.7 [facility] Comment on above: Performed By: #### L 400.0001 #### [facility] [address] [facility] [place], [address] Basophils/100 WBC (Bld) 0.8 % Normal 0-1 [facility] Comment on above: Performed By: #### L 400.0001 #### [facility] [address] [place], [address] Eosinophils/100 WBC (Bld) 2.0 % Normal 0-5 [facility] Comment on above: Performed By: #### L 400.0001 #### [facility] [address] [place], [address] Erythrocyte distribution width (RBC) [Ratio] 13.5 % Normal 11.6-14.6 [facility] Comment on above: Performed By: #### L 400.0001 #### [facility] [address] [place], [address] Hematocrit (Bld) [Volume fraction] 43.2 % Normal 37-47 [facility] Comment on above: Performed By: #### L 400.0001 #### [facility] [address] [place], [address] Hemoglobin (Bld) [Mass/Vol] 14.1 g/dL Normal 12.0-15.0 [facility] Comment on above: Performed By: #### L 400.0001 #### [facility] [address] [place], [address] IG% 0.300 Normal 0.0-0.9 [facility] Comment on above: Result Comment: IG% - Immature Granulocytes (promyelocytes, myelocytes and metamyelocytes) > 1% indicates that a LEFT SHIFT is Present. Performed By: #### L 400.0001 #### [facility] [address] [place], [address] Lymphocytes/100 WBC (Bld) 31.6 % Normal 19-41 [facility] Comment on above: Performed By: #### L 400.0001 #### [facility] [address] [place], [address] MCH (RBC) [Entitic mass] 29.6 pg Normal 27.0-32.0 [facility] Comment on above: Performed By: #### L 400.0001 #### [facility] [address] [place], [address] MCHC (RBC) [Mass/Vol] 32.6 g/dL Normal 32-36 [facility] Comment on above: Performed By: #### L 400.0001 #### [facility] [address] [place], [address] MCV (RBC) [Entitic vol] 90.6 fL Normal 81-99 [facility] Comment on above: Performed By: #### L [id number] #### [facility] [address] [place], [address] Monocytes/100 WBC (Bld) 10.6 % High 0-10 [facility] Comment on above: Performed By: #### L 400.0001 #### [facility] [place], [address] Neutrophils/100 WBC (Bld) 54.7 % Normal 47-70 [facility] Comment on above: Performed By: #### L 400.0001 #### [facility] [address] [place], [address] Nucleated RBC (Bld) [#/Vol] 0 10*3/uL Normal 0-5 [facility] Comment on above: Performed By: #### L 400.0001 #### [facility] [address] [place], [address] Platelet mean volume (Bld) [Entitic vol] 10.3 fL Normal 6.2-12.0 [facility] Comment on above: Performed By: #### L 400.0001 #### [facility] [address] [place], [address] Platelets (Bld) [#/Vol] 417 10*3/uL Normal 150-450 [facility] Comment on above: Performed By: #### L 400.0001 #### [facility] [address] [place], [address] RBC (Bld) [#/Vol] 4.77 10*6/uL Normal 4.2-5.4 [facility] Comment on above: Performed By: #### L 400.0001 #### [facility] [address] [place], [address] RDW SD 45.1 fl High 35.1-43.9 [facility] Comment on above: Performed By: #### L 400.0001 #### [facility] [address] [place], [address] WBC (Bld) [#/Vol] 6.4 10*3/uL Normal 4.4-11.0 [facility] Comment on above: Performed By: #### L 400.0001 #### [facility] [address] [place], [address] Comprehensive Metabolic [facility] 10-31-2023 Albumin [Mass/Vol] 3.8 g/dL Normal 3.2-5.0 [facility] Comment on above: Performed By: #### L 400.0001 #### [facility] [address] [place], [address] Albumin/Globulin [Mass ratio] 1.1 {ratio} Normal 0.9-2.4 [facility] Comment on above: Performed By: #### L 400.0001 #### [facility] [address] [place], [address] ALK P 116 U/L Normal 45-117 [facility] Comment on above: Performed By: #### L 400.0001 #### [facility] [address] [place], [address] ALT [Catalytic activity/Vol] 32 U/L Normal 13-56 [facility] Comment on above: Performed By: #### L 400.0001 #### [facility] [address] [place], [address] AST [Catalytic activity/Vol] 24 U/L Normal 15-37 [facility] Comment on above: Performed By: #### L 400.0001 #### [facility] [address] [place], [address] Bilirubin [Mass/Vol] 0.90 mg/dL Normal 0.20-1.00 [facility] Comment on above: Result Comment: For patients on eltrombopag therapy, use of Dimension [place] TBIL is not recommended. Performed By: #### L 400.0001 #### [facility] [address] [place], [address] BUN/CRE 20.4 RATIO High 10-20 [facility] Comment on above: Performed By: #### L 400.0001 #### [facility] [address] [place], [address] CA,Total 9.6 mg/dL Normal 8.5-10.1 [facility] Comment on above: Performed By: #### L 400.0001 #### [facility] [address] [place], [address] Chloride [Moles/Vol] 104 mmol/L Normal 98-107 [facility] Comment on above: Performed By: #### L 400.0001 #### [facility] [address] [place], [address] CO2 [Moles/Vol] 29.0 mmol/L Normal 21.0-32.0 [facility] Comment on above: Performed By: #### L 400.0001 #### [facility] [address] [place], [address] Creatinine [Mass/Vol] 1.03 mg/dL High 0.55-1.02 [facility] Comment on above: Result Comment: The validity of the calculated GFR GFRAA in patients over 70 years has not been determined. Clinical correlation is essential. Performed By: #### L 400.0001 #### [facility] [address] [place], [address] EST GFR - AA 68 mL/min Normal >60 [facility] Comment on above: Result Comment: Afri can Moroccan GFR Calc Performed By: #### L 400.0001 #### [facility] [address] [place], [address] GAP 7 Normal 5-15 [facility] Comment on above: Performed By: #### L 400.0001 #### [facility] [address] [place], [address] GFR/1.73 sq M.predicted among non-blacks MDRD (S/P/Bld) [Vol rate/Area] 56 mL/min/{1.73_m2} Low >60 [facility] Comment on above: Result Comment: Non- GFR Calc Performed By: #### L 400.0001 #### [facility] [address] [place], [address] Globulin (S) [Mass/Vol] 3.4 g/dL Normal 2.2-4.2 [facility] Comment on above: Performed By: #### L 400.0001 #### [facility] [address] [place], [address] Glucose [Mass/Vol] 118 mg/dL High 74-106 [facility] Comment on above: Result Comment: Fast ing Glucose result from 100 to 125 mg/dL suggests IMPAIRED HOMEOSTASIS per A.D.A. criteria. Performed By: #### L 400.0001 #### [facility] [address] [place], [address] Potassium [Moles/Vol] 3.2 mmol/L Low 3.5-5.1 [facility] Comment on above: Performed By: #### L 400.0001 #### [facility] [address] [place], [address] Sodium [Moles/Vol] 140 mmol/L Normal 136-145 [facility] Comment on above: Performed By: #### L 400.0001 #### [facility] [address] [place], [address] T PROT 7.2 g/dL Normal 6.4-8.2 [facility] Comment on above: Performed By: #### L 400.0001 #### [facility] [address] [place], [address] Urea nitrogen [Mass/Vol] 21 mg/dL High 7-18 [facility] Comment on above: Performed By: #### L 400.0001 #### [facility] [address] [place], [address] Hemoglobin A1con 10-31-2023 HbA1c (Bld) [Mass fraction] 5.9 % High 3.8-5.6 [facility] Comment on above: Result Comment: Norm al < 5.7 % Prediabetic 5.7 - 6.4 % Diabetic >or= 6.5 % Please note range changes. Performed By: #### L 503.6005 #### [facility] [address] [place], [address] Lipid Profileon 10-31-2023 Cholesterol [Mass/Vol] 225 mg/dL High 200 [facility] Comment on above: Result Comment: <200 mg/dL Desirable 200-240 mg/dL Borderline >240 mg/dL High Risk Performed By: #### L 503.6005 #### [facility] [address] [place], [address] Cholesterol in HDL [Mass/Vol] 55 mg/dL Normal [facility] Comment on above: Result Comment: The drugs N-Acetylcysteine and Metamizole may falsely depress this assay. Reference Range HDL <40 mg/dL Low HDL Cholesterol HDL >or= 60 mg/dL High HDL Cholesterol Performed By: #### L 503.6005 #### [facility] [address] [place], [address] Cholesterol in LDL [Mass/Vol] 132 mg/dL High 0-130 [facility] Comment on above: Performed By: #### L 503.6005 #### [facility] [address] [place], [address] Cholesterol in VLDL [Mass/Vol] 38 mg/dL Normal 5-40 [facility] Comment on above: Performed By: #### L 503.6005 #### [facility] [address] [place], [address] Triglyceride [Mass/Vol] 191 mg/dL Normal [facility] Comment on above: Result Comment: The drugs N-Acetylcysteine and Metamizole may falsely depress this assay. Serum Triglycerides Reference Interval Normal <150 mg/dL Borderline high 150 - 199 mg/dL High 200 - 499 mg/dL Very High > or = 500 mg/dL Performed By: #### L 503.6005 #### [facility] [address] [place], [address] Partial Thromboplast Timeon 10-31-2023 aPTT Coag (Bld) [Time] 24.4 s Normal 24.1-36.2 [facility] Comment on above: Performed By: #### L 400.0001 #### [facility] [address] [place], [address] Prothrombin Time w/INRon INR Coag (PPP) [Relative time] 0.9 {INR} Normal [facility] Comment on above: Performed By: #### L 400.0001 #### [facility] [address] [place], [address] PT Coag (PPP) [Time] 12.5 s Normal 11.7-14.9 [facility] Comment on above: Performed By: #### L 400.0001 #### [facility] [address] [place], [place], [address] Vitamin D,25 Hydroxyon 10-30 Vitamin D 25-OH 51.7 ng/mL Normal [facility] Comment on above: Result Comment: Cait min D 25(OH) Status Range Deficiency <20 ng/mL (50nmol/L) Insufficiency 20 - 30 ng/mL (50 - 75 nmol/L) Sufficiency 30 - 100 ng/mL (75 - 250 nmol/L) Toxicity >100 ng/mL (>250 nmol/L) Performed By: #### L 503.6005 #### [facility] [address] [place], [address] MR/BMS.BPon 10-18-2023 MR/BMS.BP [address], [address] [place] [address] OFFICE VISIT Date of Service: 10/18/23 MR#: [id number] Acct: [id number] Name: ESTEFANIA GODOY Rep #: [id number] : 1955 Provider: Dr. Raul Campbell se, DO Age/Sex: 67/F Location: [facility] [place].[facility] Status: Signed Intake Vital Signs 08/11/23 13:24 09/11/23 09:49 10/18/23 10:05 10/18/23 10:05 Height 5 ft 2 in 5 ft 2 in 5 ft 2 in 5 ft 2 in Weight: 174 lb 175 lb BMI 31.8 32.0 BP 148/98 H 118/70 122/79 H Blood Pressure Location Rt brachial Lt brachial Rt brachial Position Sitting Sitting Sitting Respiration 16 16 Pulse 75 86 85 Pulse Source Monitor Monitor Monitor Temp 97.6 F L 97.5 F L Pulse Oximetry (%) 96 98 Oxygen Delivery Method room air room air BP Intake Visit Reasons: 3 M FU Security Director Required: No Accompanied by: Self Is patient in pain?: No Allergies No Known Allergies Allergy (Verified 10/18/23 10:06) Medications ???Medication ???Instructions ???Recorded ???Confirmed ???Type cholecalciferol (vitamin D3) 50 2,000 unit PO BID 07/03/17 10/18/23 History mcg (2,000 unit) capsule calcium carbonate (Calcium 600) 600 mg PO QDAY #90 tabs 10/19/22 10/18/23 Rx amiloride 5 mg-hydrochlorothiazi de 0.5 tab PO DAILY #90 tabs 10/21/22 10/18/23 Rx 50 mg tablet potassium chloride 20 mEq 20 meq PO BID 3 months #180 tabs 12/28/22 10/18/23 Rx tablet,extended release(part/cryst) (Klor-Con M) losartan 100 mg tablet 100 mg PO DAILY #90 TABLETS 07/03/23 10/18/23 Rx amlodipine 10 mg tablet 10 mg PO DAILY #90 tabs 08/11/23 10/18/23 Rx pantoprazole 40 mg tablet,delayed 40 mg PO DAILY #90 tabs 08/11/23 10/18/23 Rx release lubiprostone 8 mcg capsule 8 mcg PO BID #60 caps 10/06/23 10/18/23 Rx (Amitiza) buspirone 7.5 mg tablet 7.5 mg PO BID #60 tabs 10/18/23 10/18/23 Rx clonazepam 0.5 mg tablet 0.5 mg PO DAILY PRN Anxiety #30 10/18/23 10/18/23 Rx tabs duloxetine 60 mg capsule,delayed 60 mg PO DAILY #90 caps 10/18/23 10/18/23 Rx release Have you fallen in the past year?: No Current gender identity: female Nurse's Note: Presents to the office today for follow up. [facility] Medical History (Updated 10/18/23 @ 10:[address] Raul Mazariegos, DO) JEANNA (generalized anxiety disorder) Obesity (BMI 30-39.9) Open wound of skin GERD (gastroesophageal reflux disease) Change in bowel movement Burning with urination Vitamin deficiency Generalized muscle ache Panic disorder Major depressive disorder COVID-19 Wears glasses Depression Anxiety Sore on scalp Restless legs History of ulceration Gastric reflux Non-smoker CPAP (continuous positive airway pressure) dependence History of echocardiogram Abnormal barium swallow Hypokalemia CHANTELL (acute kidney injury) Arm pain Eye pain Difficulty swallowing Dermatitis Renal stones HPV (human papilloma virus) infection history of kidney stone removal High cholesterol HTN (hypertension) Surgical History S/P right rotator cuff repair Hx of colonoscopy History of hemorrhoidectomy History of appendectomy History of hysterectomy History of cholecystectomy Family History Father Alcoholism Colon cancer Heart disease Hypertension High cholesterol Grandfather Heart disease Myocardial infarction Hypertension High cholesterol Sister Schizophrenia Mental disorder psychiatric care Diabetes Other Anxiety Autoimmune disorder Depression Social History household members: none current occupational status: 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 Patient reports that she has been having some intermittent nausea and diarrhea. Was started on Amitiza for this. Feels like her mouth has been very dry since starting this, which is bothersome. Does wear her CPAP regularly but is annoyed with it. Feels like sleep significantly impacts her depression. Mood has been angry all the time. Feels like she can cry easily and often times wants to tell people to f off. Still having some interpersonal difficulty with her sisters. Unsure if duloxetine is beneficial, as she is fee (more content not included)... Normal [facility] Gastroenterology Visit Repor ton 10-06-2023 Gastroenterology Visit Report [facility] [address] [place] [address] OFFICE VISIT Date of Service: 10/06/23 MR#: [id number] Acct: [id number] Name: ESTEFANIA GODOY Rep #: [id number] : 1955 Provider: Issa Lim DO Age/Sex: 67/F Location: [facility] [place] Status: Signed Intake Vital Signs 05/01/23 10:29 06/13/23 15:25 09/11/23 09:49 Height 5 ft 2 in 5 ft 2 in 5 ft 2 in Intake Visit Reasons: Diarrhea Allergies No Known Allergies Allergy (Verified 09/11/23 09:46) Medications ???Medication ???Instructions ???Recorded ???Confirmed ???Type cholecalciferol (vitamin D3) 50 2,000 unit PO BID 07/03/17 10/06/23 History mcg (2,000 unit) capsule calcium carbonate (Calcium 600) 600 mg PO QDAY #90 tabs 10/19/22 10/06/23 Rx amiloride 5 mg-hydrochlorothiazi de 0.5 tab PO DAILY #90 tabs 10/21/22 10/06/23 Rx 50 mg tablet potassium chloride 20 mEq 20 meq PO BID 3 months #180 tabs 12/28/22 10/06/23 Rx tablet,extended release(part/cryst) (Klor-Con M) losartan 100 mg tablet 100 mg PO DAILY #90 TABLETS 07/03/23 10/06/23 Rx clonazepam 0.5 mg tablet 0.5 mg PO DAILY PRN Anxiety #30 07/31/23 10/06/23 Rx tabs amlodipine 10 mg tablet 10 mg PO DAILY #90 tabs 08/11/23 10/06/23 Rx pantoprazole 40 mg tablet,delayed 40 mg PO DAILY #90 tabs 08/11/23 10/06/23 Rx release duloxetine 60 mg capsule,delayed 60 mg PO DAILY #90 caps 08/22/23 10/06/23 Rx release lubiprostone 8 mcg capsule 8 mcg PO BID #60 caps 10/06/23 10/06/23 Rx (Amitiza) Have you fallen in the past year?: No PFSH Medical History (Updated 09/11/23 @ 12:[address] Aissatou Hu MD) Obesity (BMI 30-39.9) Open wound of skin GERD (gastroesophageal reflux disease) Change in bowel movement Burning with urination Vitamin deficiency Generalized muscle ache Panic disorder Major depressive disorder COVID-19 Wears glasses Depression Anxiety Sore on scalp Restless legs History of ulceration Gastric reflux Non-smoker CPAP (continuous positive airway pressure) dependence History of echocardiogram Abnormal barium swallow Hypokalemia CHANTELL (acute kidney injury) Arm pain Eye pain Difficulty swallowing Dermatitis Renal stones HPV (human papilloma virus) infection history of kidney stone removal High cholesterol HTN (hypertension) Surgical History S/P right rotator cuff repair Hx of colonoscopy History of hemorrhoidectomy History of appendectomy History of hysterectomy History of cholecystectomy Family History Father Alcoholism Colon cancer Heart disease Hypertension High cholesterol Grandfather Heart disease Myocardial infarction Hypertension High cholesterol Sister Schizophrenia Mental disorder psychiatric care Diabetes Other Anxiety Autoimmune disorder Depression Social History household members: none 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 OV 6.28.24 pt reports that she has been experiencing constipation; has the urge to go, but is unable. Reports that she feels bloated all of the time. Will take dulcolax but then states the cycle starts all over again. Continues with pantoprazole, but is unsure if she needs to be taking it. ROS Const Constitutional: Positive for fatigue, headache(s) and weight change (weight gain ); No fever(s) ENT ENT: Positive for headache(s); No difficulty swallowing Gastro GI: Positive for bloating, change in bowel habits, constipation, heartburn and excessive flatus; No abdominal pain, belching, change in stool character, coffee ground emesis, cramping, diarrhea, difficulty swallowing, feeling full early, incontinent of stools, Vomiting blood/hematemesis, Blood in stool, loose stools, Black,tarry stools, nausea/dyspepsia, pain with swallowing, vomiting or other Musc Musculoskeletal: Positive for restless legs; No joint pain Skin Skin: No yellowing of the eye or itchy eyes Neuro Neurology: Positive for headache(s) and restless legs Psych Psychiatric: Positive for anxiety and Positive for depression Endo Endocrine: Positive for fatigue (more content not included)... Normal [facility] [place] Basophil percentageon 2021 Chloride [Moles/Vol] 107 mmol/L 98-107 [facility] Work Phone: Glucose [Mass/Vol] 124 mg/dL 74-106 [facility] Work Phone: Comment on above: Fasting Glucose resu lt from 100 to 125 mg/dL suggests IMPAIRED HOMEOSTASIS per A.D.A. criteria. Potassium [Moles/Vol] 3.4 mmol/L 3.5-5.1 [facility] Work Phone: Sodium [Moles/Vol] 141 mmol/L 136-145 [facility] Work Phone: Laboratory - Chemistry and C hemistry - challengeon 02-04-2022 CO2 [Moles/Vol] 27.0 mmol/L 21.0-32.0 [facility] Work Phone: Magnesium [Mass/Vol] 2.3 mg/dL 1.6-2.6 [facility] Work Phone: Urea nitrogen/Creatinine [Mass ratio] 15.2 mg/mg 10- [facility] Work Phone: No Panel Informationon 02-04 Estimated GFR (MDRD) Amer 78 mL/min >60 [facility] Work Phone: Comment on above: GFR Calc Estimated GFR (MDRD) Non-Af Amer 65 mL/min >60 [facility] Work Phone: Comment on above: Non- GFR Calc Serum or plasma calcium sunday urement (mass/volume)on 02-04-2022 Calcium [Mass/Vol] 9.7 mg/dL 8.5-10.1 [facility] Work Phone: Serum or plasma creatinine m easurement (mass/volume)on 02-04-2022 Creatinine [Mass/Vol] 0.92 mg/dL 0.55-1.02 [facility] Work Phone: Comment on above: The validity of the calculated GFR & GFRAA in patients over 70 years has not been determined. Clinical correlation is essential. Serum or plasma urea nitroge n measurement (mass/volume)on 02-04-2022 Urea nitrogen [Mass/Vol] 14 mg/dL 7-18 [facility] Work Phone: Thin prep Papanicolaou smear with manual screeningon 02-04-2022 Thin prep Papanicolaou smear with manual screening 7 5-15 [facility] Work Phone: Laboratory - Microbiology an d Antimicrobial susceptibilityon 11-04-2021 SARS-CoV-2 (COVID-19) RNA DERRICK+probe Ql (Unsp spec) Detected [facility] Work Phone: No Panel Informationon 11-04 Influenza Types A,B Rapid (Clinic) Not detected [facility] Work Phone: Basophil percentageon 2021 Chloride [Moles/Vol] 105 mmol/L 98-107 [facility] Work Phone: Glucose [Mass/Vol] 103 mg/dL 74-106 [facility] Work Phone: Comment on above: Fasting Glucose resu lt from 100 to 125 mg/dL suggests IMPAIRED HOMEOSTASIS per A.D.A. criteria. Potassium [Moles/Vol] 3.5 mmol/L 3.5-5.1 [facility] Work Phone: Sodium [Moles/Vol] 140 mmol/L 136-145 [facility] Work Phone: Laboratory - Chemistry and C hemistry - challengeon 08-05-2021 CO2 [Moles/Vol] 29.0 mmol/L 21.0-32.0 [facility] Work Phone: Urea nitrogen/Creatinine [Mass ratio] 15.0 mg/mg 10-20 [facility] Work Phone: No Panel Informationon 08-05 Estimated GFR (MDRD) Amer 84 mL/min >60 [facility] Work Phone: Comment on above: GFR Calc Estimated GFR (MDRD) Non-Af Amer 69 mL/min >60 [facility] Work Phone: Comment on above: Non- GFR Calc Serum or plasma calcium sunday urement (mass/volume)on 08-05-2021 Calcium [Mass/Vol] 9.1 mg/dL 8.5-10.1 [facility] Work Phone: Serum or plasma creatinine m easurement (mass/volume)on 08-05-2021 Creatinine [Mass/Vol] 0.87 mg/dL 0.55-1.02 [facility] Work Phone: Comment on above: The validity of the calculated GFR & GFRAA in patients over 70 years has not been determined. Clinical correlation is essential. Serum or plasma urea nitroge n measurement (mass/volume)on 08-05-2021 Urea nitrogen [Mass/Vol] 13 mg/dL 7-18 [facility] Work Phone: Thin prep Papanicolaou smear with manual screeningon 08-05-2021 Thin prep Papanicolaou smear with manual screening 6 5-15 [facility] Work Phone: Basophil percentageon 2021 Chloride [Moles/Vol] 108 mmol/L 98-107 [facility] Work Phone: Glucose [Mass/Vol] 114 mg/dL 74-106 [facility] Work Phone: Comment on above: Fasting Glucose resu lt from 100 to 125 mg/dL suggests IMPAIRED HOMEOSTASIS per A.D.A. criteria. Potassium [Moles/Vol] 3.8 mmol/L 3.5-5.1 [facility] Work Phone: Sodium [Moles/Vol] 139 mmol/L 136-145 [facility] Work Phone: Laboratory - Chemistry and C hemistry - challengeon 07-13-2021 CO2 [Moles/Vol] 26.0 mmol/L 21.0-32.0 [facility] Work Phone: Urea nitrogen/Creatinine [Mass ratio] 16.5 mg/mg 10-20 [facility] Work Phone: No Panel Informationon 07-13 Estimated GFR (MDRD) Amer 73 mL/min >60 [facility] Work Phone: Comment on above: GFR Calc Estimated GFR (MDRD) Non-Af Amer 61 mL/min >60 [facility] Work Phone: Comment on above: Non- GFR Calc Serum or plasma calcium sunday urement (mass/volume)on 07-13-2021 Calcium [Mass/Vol] 9.4 mg/dL 8.5-10.1 [facility] Work Phone: Serum or plasma creatinine m easurement (mass/volume)on 07-13-2021 Creatinine [Mass/Vol] 0.97 mg/dL 0.55-1.02 [facility] Work Phone: Comment on above: The validity of the calculated GFR & GFRAA in patients over 70 years has not been determined. Clinical correlation is essential. Serum or plasma urea nitroge n measurement (mass/volume)on 07-13-2021 Urea nitrogen [Mass/Vol] 16 mg/dL 7-18 [facility] Work Phone: Thin prep Papanicolaou smear with manual screeningon 07-13-2021 Thin prep Papanicolaou smear with manual screening 5 5-15 [facility] Work Phone: Absolute lymphocyte counton 07-06-2021 Lymphocytes Auto (Unsp spec) [#/Vol] 1.76 10*3/uL 0.83-4.51 [facility] Work Phone: Basophil percentageon 2021 Basophils/100 WBC (Bld) 0.7 % 0-1 [facility] Work Phone: Bilirubin [Mass/Vol] 1.10 mg/dL 0.20-1.00 [facility] Work Phone: Comment on above: For patients on eltr ombopag therapy, use of Dimension [place] TBIL is not recommended. Chloride [Moles/Vol] 107 mmol/L 98-107 [facility] Work Phone: [phone] Cholesterol [Mass/Vol] 134 mg/dL <200 [facility] Work Phone: [phone] Comment on above: <200 mg/dL Desirable 200-240 mg/dL Borderline >240 mg/dL High Risk Eosinophils/100 WBC (Bld) 1.7 % 0-5 [facility] Work Phone: [phone] Glucose [Mass/Vol] 133 mg/dL 74-106 [facility] Work Phone: [phone] Comment on above: Fasting Glucose resu lt greater than or equal to 126 mg/dL suggests DIABETES MELLITUS per A.D.A. criteria. Neutrophils (Bld) [#/Vol] 4.4 10*3/uL 2.0-7.7 [facility] Work Phone: [phone] Neutrophils/100 WBC (Bld) 62.6 % 47-70 [facility] Work Phone: [phone] Potassium [Moles/Vol] 3.0 mmol/L 3.5-5.1 [facility] Work Phone: [phone] Protein [Mass/Vol] 7.3 g/dL 6.4-8.2 [facility] Work Phone: [phone] Sodium [Moles/Vol] 143 mmol/L 136-145 [facility] Work Phone: Triglyceride [Mass/Vol] 158 mg/dL <199 [facility] Work Phone: Comment on above: The drugs N-Acetylcy steine and Metamizole may falsely depress this assay.Serum Triglycerides Reference Interval Normal <150 mg/dL Borderline high 150 - 199 mg/dL High 200 - 499 mg/dL Very High > or = 500 mg/dL WBC (Bld) [#/Vol] 7.1 10*3/uL 4.4-11.0 [facility] Work Phone: [phone] Blood erythrocytes count (nu mber/volume)on 07-06-2021 RBC (Bld) [#/Vol] 4.50 10*6/uL 4.2-5.4 [facility] Work Phone: Blood hemoglobin measurement (mass/volume)on 07-06-2021 Hemoglobin (Bld) [Mass/Vol] 13.6 g/dL 12.0-15.0 [facility] Work Phone: Blood lymphocytes/100 leukoc yteson 07-06-2021 Lymphocytes/100 WBC (Bld) 24.9 % 19-41 [facility] Work Phone: Blood monocytes/100 leukocyt eson 07-06-2021 Monocytes/100 WBC (Bld) 9.8 % 0-10 [facility] Work Phone: Blood platelet mean volumeon 07-06-2021 Platelet mean volume (Bld) [Entitic vol] 10.8 fL 6.2-12.0 [facility] Work Phone: Determination of erythrocyte mean corpuscular volume (MCV)on 07-06-2021 MCV (RBC) [Entitic vol] 92.7 fL 81-99 [facility] Work Phone: Hematocrit Auto (Bld) [Volum e fraction]on 07-06-2021 Hematocrit (Bld) [Volume fraction] 41.7 % 37-47 [facility] Work Phone: Laboratory - Chemistry and C hemistry - challengeon 07-06-2021 ALP [Catalytic activity/Vol] 111 U/L 45-117 [facility] Work Phone: ALT [Catalytic activity/Vol] 41 U/L 13-56 [facility] Work Phone: CO2 [Moles/Vol] 31.0 mmol/L 21.0-32.0 [facility] Work Phone: Globulin (S) [Mass/Vol] 3.4 g/dL 2.2-4.2 [facility] Work Phone: Urea nitrogen/Creatinine [Mass ratio] 18.4 mg/mg 10-20 [facility] Work Phone: Laboratory - Hematology and Cell countson 07-06-2021 Erythrocyte distribution width (RBC) [Entitic vol] 47.1 fL 35.1-43.9 [facility] Work Phone: Erythrocyte distribution width (RBC) [Ratio] 13.8 % 11.6-14.6 [facility] Work Phone: Immature granulocytes/100 WBC (Bld) 0.300 % 0.0-0.9 [facility] Work Phone: Comment on above: IG% - Immature Granu locytes (promyelocytes, myelocytes and metamyelocytes) > 1% indicates that a LEFT SHIFT is Present. MCH (RBC) [Entitic mass] 30.2 pg 27.0-32.0 [facility] Work Phone: Nucleated RBC/100 WBC (Bld) [Ratio] 0 % 0-5 [facility] Work Phone: MCHC Auto (RBC) [Mass/Vol]on 07-06-2021 MCHC (RBC) [Mass/Vol] 32.6 g/dL 32-36 [facility] Work Phone: No Panel Informationon 07-06 Estimated GFR (MDRD) Amer 50 mL/min >60 [facility] Work Phone: Comment on above: GFR Calc Estimated GFR (MDRD) Non-Af Amer 41 mL/min >60 [facility] Work Phone: Comment on above: Non- GFR Calc Platelets bldon 07-06-2021 Platelets (Bld) [#/Vol] 367 10*3/uL 150-450 [facility] Work Phone: Serum or plasma albumin sunday urement (mass/volume)on 07-06-2021 Albumin [Mass/Vol] 3.9 g/dL 3.2-5.0 [facility] Work Phone: Serum or plasma albumin/glob ulin mass ratioon 07-06-2021 Albumin/Globulin [Mass ratio] 1.1 {ratio} 0.9-2.4 [facility] Work Phone: Serum or plasma calcium sunday urement (mass/volume)on 07-06-2021 Calcium [Mass/Vol] 9.2 mg/dL 8.5-10.1 [facility] Work Phone: Serum or plasma cholesterol in HDL measurement (mass/volume)on 07-06-2021 Cholesterol in HDL [Mass/Vol] 55 mg/dL >40 [facility] Work Phone: Comment on above: The drugs N-Acetylcy steine and Metamizole may falsely depress this assay. Reference Range HDL <40 mg/dL Low HDL Cholesterol HDL >or= 60 mg/dL High HDL Cholesterol Serum or plasma cholesterol in VLDL measurement (mass/volume)on 07-06-2021 Cholesterol in VLDL [Mass/Vol] 32 mg/dL 5-40 [facility] Work Phone: Serum or plasma creatinine m easurement (mass/volume)on 07-06-2021 Creatinine [Mass/Vol] 1.36 mg/dL 0.55-1.02 [facility] Work Phone: Comment on above: The validity of the calculated GFR & GFRAA in patients over 70 years has not been determined. Clinical correlation is essential. Serum or plasma low density lipoprotein (LDL) cholesterol measurement (mass/volume)on 07-06-2021 Cholesterol in LDL [Mass/Vol] 47 mg/dL 0-130 [facility] Work Phone: Serum or plasma urea nitroge n measurement (mass/volume)on 07-06-2021 Urea nitrogen [Mass/Vol] 25 mg/dL 7-18 [facility] Work Phone: Thin prep Papanicolaou smear with manual screeningon 07-06-2021 Thin prep Papanicolaou smear with manual screening 30 U/L 15-37 [facility] Work Phone: Thin prep Papanicolaou smear with manual screening 5 5-15 [facility] Work Phone: Microbiology: Culture, R/O S trep Aon 11-04-2016 GE use only - for [employer] import when terms are not otherwise specified . Invalid Interpretation Code [facility] Work Phone: Office Visit: UC: UTI, Phary ngitison 11-02-2016 Albumin Ql (U) Negative [facility] Work Phone: Appearance Nom (U) cloudy Invalid Interpretation Code [facility] Work Phone: Bilirubin Ql (U) Negative [facility] Work Phone: blood in urine (hemoglobin) by dipstick Negative Invalid Interpretation Code [facility] Work Phone: Color Nom (U) orange Invalid Interpretation Code [facility] Work Phone: Documentation of current medications (procedure) Done Invalid Interpretation Code [facility] Work Phone: Fall risk assessment No Invalid Interpretation Code [facility] Work Phone: Glucose Test strip mass conc (U) Negative [facility] Work Phone: Ketones mass conc (U) Negative [facility] Work Phone: Leukocyte esterase Test strip Ql (U) 2+ Invalid Interpretation Code [facility] Work Phone: Nitrite Ql (U) Negative [facility] Work Phone: pH (U) 6.5 [pH] [facility] Work Phone: Protein mass conc Done [facility] Work Phone: Specific gravity Refractometry Relative Density (U) 1.010 Invalid Interpretation Code [facility] Work Phone: Urine, bilirubin presence Negative Invalid Interpretation Code [facility] Work Phone: Urine, glucose presence Negative Invalid Interpretation Code [facility] Work Phone: Urine, ketones presence Negative Invalid Interpretation Code [facility] Work Phone: [phone] Urine, nitrite presence Negative Invalid Interpretation Code [facility] Work Phone: [phone] Urine, pH 6.5 [pH] Invalid Interpretation Code [facility] Work Phone: [phone] Urine, protein Negative Invalid Interpretation Code [facility] Work Phone: [phone] Urobilinogen Test strip Ql (U) Negative Invalid Interpretation Code [facility] Work Phone: [phone] Office Visit: UC: Bladder In fectionon 10-08-2016 blood in urine (hemoglobin) by dipstick non-hemolyzed trace Invalid Interpretation Code [facility] Work Phone: [phone] Documentation of current medications (procedure) Done Invalid Interpretation Code [facility] Work Phone: [phone] specific gravity, urine 1.010 Invalid Interpretation Code [facility] Work Phone: [phone] Tobacco smoking status CAIS Never Invalid Interpretation Code [facility] Work Phone: [phone] Tobacco smoking status [facility] Never smoker [facility] Work Phone: [phone] Tobacco use [facility] Never smoker Invalid Interpretation Code [facility] Work Phone: [phone] Urine, appearance clear Invalid Interpretation Code [facility] Work Phone: [phone] Urine, bilirubin presence Negative Invalid Interpretation Code [facility] Work Phone: [phone] Urine, color orange Invalid Interpretation Code [facility] Work Phone: [phone] Urine, glucose presence Negative Invalid Interpretation Code [facility] Work Phone: [phone] Urine, ketones presence Negative Invalid Interpretation Code [facility] Work Phone: [phone] Urine, leukocyte esterase presence 2+ Invalid Interpretation Code [facility] Work Phone: [phone] Urine, nitrite presence Negative Invalid Interpretation Code [facility] Work Phone: [phone] Urine, pH 6.0 [pH] Invalid Interpretation Code [facility] Work Phone: [phone] Urine, protein Negative Invalid Interpretation Code [facility] Work Phone: Urine, urobilinogen presence Negative Invalid Interpretation Code [facility] Work Phone: Vital Signs Date Time Vital Sign Value Performing Clinician Gigi vance 11-04-2021 10:52-0400 Body temperature 97 [degF] Dr. Aissatou Hu Work Phone: [facility] Work Phone: 11-04-2021 10:52-0400 Diastolic blood pressure 86 mm[Hg] Dr. Aissatou Hu Work Phone: [facility] Work Phone: 11-04-2021 10:52-0400 Heart rate 107 /min Dr. Aissatou Hu Work Phone: [facility] Work Phone: 11-04-2021 10:52-0400 Respiratory rate 16 /min Dr. Aissatou Hu Work Phone: [facility] Work Phone: 11-04-2021 10:52-0400 SaO2% (BldA) [Mass fraction] 97 % Dr. Aissatou Hu Work Phone: [facility] Work Phone: 11-04-2021 10:52-0400 Systolic blood pressure 142 mm[Hg] Dr. Aissatou Hu Work Phone: [facility] Work Phone: 11-01-2021 12:15-0400 Body temperature 97.9 [degF] Dr. Aissatou Hu Work Phone: [facility] Work Phone: 11-01-2021 12:15-0400 Diastolic blood pressure 73 mm[Hg] Dr. Aissatou Hu Work Phone: [facility] Work Phone: 11-01-2021 12:15-0400 Heart rate 78 /min Dr. Aissatou Hu Work Phone: [facility] Work Phone: 11-01-2021 12:15-0400 Respiratory rate 16 /min Dr. Aissatou Hu Work Phone: [facility] Work Phone: 11-01-2021 12:15-0400 SaO2% (BldA) [Mass fraction] 97 % Dr. Aissatou Hu Work Phone: [facility] Work Phone: 11-01-2021 12:15-0400 Systolic blood pressure 123 mm[Hg] Dr. Aissatou Hu Work Phone: [facility] Work Phone: 11-01-2021 10:11-0400 Body height 157.[address] Aissatou Hu Work Phone: [facility] Work Phone: 11-01-2021 10:11-0400 Body mass index (BMI) [Ratio] 30.2 kg/m2 Dr. Aissatou Hu Work Phone: [facility] Work Phone: 11-01-2021 10:11-0400 Body weight [address] Aissatou Hu Work Phone: [facility] Work Phone: 10-12-2021 10:48-0400 Body height 157.[address] Aissatou Hu Work Phone: [facility] Work Phone: 10-12-2021 10:48-0400 Body mass index (BMI) [Ratio] 30.7 kg/m2 Dr. Aissatou Hu Work Phone: [facility] Work Phone: 10-12-2021 10:48-0400 Body temperature 98.2 [degF] Dr. Aissatou Hu Work Phone: [facility] Work Phone: 10-12-2021 10:48-0400 Body weight 76.[address] Aissatou Hu Work Phone: [facility] Work Phone: 10-12-2021 10:48-0400 Diastolic blood pressure 82 mm[Hg] Dr. Aissatou Hu Work Phone: [facility] Work Phone: 10-12-2021 10:48-0400 Heart rate 82 /min Dr. Aissatou Hu Work Phone: [facility] Work Phone: 10-12-2021 10:48-0400 Respiratory rate 14 /min Dr. Aissatou Hu Work Phone: [facility] Work Phone: 10-12-2021 10:48-0400 SaO2% (BldA) [Mass fraction] 98 % Dr. Aissatou Hu Work Phone: [facility] Work Phone: 10-12-2021 10:48-0400 Systolic blood pressure 124 mm[Hg] Dr. Aissatou Hu Work Phone: [facility] Work Phone: 09-28-2021 14:55-0400 Body mass index (BMI) [Ratio] 30.9 kg/m2 Dr. Aissatou Hu Work Phone: [facility] Work Phone: 09-28-2021 14:55-0400 Body weight 76.[address] Aissatou Hu Work Phone: [facility] Work Phone: 09-28-2021 14:55-0400 Diastolic blood pressure 88 mm[Hg] Dr. Aissatou Hu Work Phone: [facility] Work Phone: 09-28-2021 14:55-0400 Heart rate 95 /min Dr. Aissatou Hu Work Phone: [facility] Work Phone: 09-28-2021 14:55-0400 SaO2% (BldA) [Mass fraction] 95 % Dr. Aissatou Hu Work Phone: [facility] Work Phone: 09-28-2021 14:55-0400 Systolic blood pressure 130 mm[Hg] Dr. Aissatou Hu Work Phone: [facility] Work Phone: 07-06-2021 14:31-0400 Body mass index (BMI) [Ratio] 30.3 kg/m2 Dr. Aissatou Hu Work Phone: [facility] Work Phone: 07-06-2021 14:31-0400 Body temperature 97.4 [degF] Dr. Aissatou Hu Work Phone: [facility] Work Phone: 07-06-2021 14:31-0400 Body weight 75.[address] Aissatou Hu Work Phone: [facility] Work Phone: 07-06-2021 14:31-0400 Diastolic blood pressure 78 mm[Hg] Dr. Aissatou Hu Work Phone: [facility] Work Phone: 07-06-2021 14:31-0400 Heart rate 88 /min Dr. Aissatou Hu Work Phone: [facility] Work Phone: 07-06-2021 14:31-0400 Respiratory rate 14 /min Dr. Aissatou Hu Work Phone: [facility] Work Phone: 07-06-2021 14:31-0400 SaO2% (BldA) [Mass fraction] 98 % Dr. Aissatou Hu Work Phone: [facility] Work Phone: 07-06-2021 14:31-0400 Systolic blood pressure 132 mm[Hg] Dr. Aissatou Hu Work Phone: [facility] Work Phone: 07-06-2021 14:31-0400 Body height 157.[address] Aissatou Hu Work Phone: [facility] Work Phone: 07-06-2021 14:31-0400 Body mass index (BMI) [Ratio] 30.3 kg/m2 Dr. Aissatou Hu Work Phone: [facility] Work Phone: 07-06-2021 14:31-0400 Body temperature 97.4 [degF] Dr. Aissatou Hu Work Phone: [facility] Work Phone: 07-06-2021 14:31-0400 Body weight 75.[address] Aissatou Hu Work Phone: [facility] Work Phone: 07-06-2021 14:31-0400 Diastolic blood pressure 78 mm[Hg] Dr. Aissatou Hu Work Phone: [facility] Work Phone: 07-06-2021 14:31-0400 Heart rate 88 /min Dr. Aissatou Hu Work Phone: [facility] Work Phone: 07-06-2021 14:31-0400 Respiratory rate 14 /min Dr. Aissatou Hu Work Phone: [facility] Work Phone: 07-06-2021 14:31-0400 SaO2% (BldA) [Mass fraction] 98 % Dr. Aissatou Hu Work Phone: [facility] Work Phone: 07-06-2021 14:31-0400 Systolic blood pressure 132 mm[Hg] Dr. Aissatou Hu Work Phone: [facility] Work Phone: 11-02-2016 09:30-0400 BMI (Body Mass Index) 27.94 kg/m2 Raul COTTRELL [facility] Work Phone: 11-02-2016 09:30-0400 Body Temperature 98.2 [degF] Raul COTTRELL [facility] Work Phone: 11-02-2016 09:30-0400 BP Diastolic 72 mm[Hg] Raul COTTRELL [facility] Work Phone: 11-02-2016 09:30-0400 BP Systolic 124 mm[Hg] Raul COTTRELL [facility] Work Phone: 11-02-2016 09:30-0400 Height 157.48 cm Raul COTTRELL [facility] Work Phone: 11-02-2016 09:30-0400 Pulse (Heart Rate) 89 /min Raul COTTRELL [facility] Work Phone: 11-02-2016 09:30-0400 Respiratory Rate 12 /min Raul COTTRELL [facility] Work Phone: 11-02-2016 09:30-0400 Weight 69.31 kg Raul COTTRELL [facility] Work Phone: 10-08-2016 11:36-0400 BMI (Body Mass Index) 27.98 kg/m2 Radha Baltazar LPN [facility] Work Phone: 10-08-2016 11:36-0400 Body Temperature 97.1 [degF] Radha Baltazar LPN [facility] Work Phone: 10-08-2016 11:36-0400 BP Diastolic 80 mm[Hg] Radha Baltazar LPN [facility] Work Phone: 10-08-2016 11:36-0400 BP Systolic 126 mm[Hg] Radha Baltazar LPN [facility] Work Phone: 10-08-2016 11:36-0400 Height 157.48 cm Radha Baltazar LPN [facility] Work Phone: 10-08-2016 11:36-0400 Pulse (Heart Rate) 87 /min Radha Baltazar LPN [facility] Work Phone: 10-08-2016 11:36-0400 Pulse Oximetry 97 % Radha Baltazar LPN [facility] Work Phone: 10-08-2016 11:36-0400 Respiratory Rate 16 /min Radha Baltazar LPN [facility] Work Phone: 10-08-2016 11:36-0400 Weight 69.4 kg Radha Baltazar LPN [facility] Work Phone: Encounters Encounter Date Encounter Type Care Provider Facility Start: 09-25-2024 End: 09-25-2024 ambulatory [facility] Start: 08-07-2024 End: [facility] Start: 08-07-2024 End: 08-07-2024 ambulatory [facility] Facility:[facility] Start: 06-25-2024 End: 06-25-2024 ambulatory [facility] Start: 06-02-2024 End: 06-02-2024 Emergency department patient visit Arian Gary Facility:[facility] Start: 05-30-2024 End: 05-30-2024 ambulatory Julian COTTRELL [facility] Start: 05-30-2024 End: 05-30-2024 ambulatory Jluian Alexander PA Facility:[facility] Start: 05-16-2024 End: 05-16-2024 ambulatory Efewongbe Olee Facility:[facility] Start: 05-07-2024 End: 05-07-2024 ambulatory Efewongbe Oleghe Facility:[facility] Start: 05-07-2024 End: 05-07-2024 ambulatory Efewongbe Olee Facility:[facility] Start: 04-22-2024 End: 04-22-2024 [facility] Start: 04-09-2024 End: 04-09-2024 [facility] Start: 03-27-2024 End: 03-27-2024 [place] [facility] Start: 03-27-2024 End: 03-27-2024 [facility] Start: 03-21-2024 End: 03-21-2024 ambulatory Efewongbe Oleghe [facility] Start: 02-13-2024 ambulatory Issa Lim [facility] Start: [facility]-22-20[facility] Start: 01-09-2024 End: 01-09-2024 [place] [place] [facility] Start: 12-20-2023 End: 12-20-2023 ambulatory Efewongbe Oleghe Facility:[facility] Start: 12-13-2023 End: 12-13-2023 ambulatory Efewongbe Oleghe Facility:[facility] Start: 11-09-2023 End: 11-09-2023 ambulatory Efewongbe Oleghe Facility:[facility] Start: 11-09-2023 End: 11-09-2023 [place]ulatory [place] Facility[facility] Start: 10-31-2023 End: 10-31-2023 ambulatory Radha Grimes Facility:[facility] Start: 10-18-2023 End: 10-18-2023 ambulatory Aissatou Hu [facility] Start: 10-06-2023 End: 10-06-2023 ambulatory Aissatou Hu [facility] Start: 02-04-2022 End: 02-04-[address] Aissatou Hu Work Phone: [facility] Work Phone: Start: 02-04-2022 End: 02-04-[address] Aissatou Hu Work Phone: [facility] Start: 11-04-2021 End: 11-04-[address] Aissatou Hu Work Phone: [facility] Start: 11-01-2021 Non-patient / Non-visit Dr. Aissatou Hu Work Phone: [facility] Start: 11-01-2021 End: 11-01-2021 Admission to same day surgery center Dr. Aissatou Hu Work Phone: [facility]-Endoscopy Start: 10-19-2021 End: 10-19-[address] Aissatou Hu Work Phone: [facility]-Outpatient Breast Imaging Start: 10-12-2021 End: 10-12-[address] Aissatou Hu Work Phone: [facility] Start: 09-28-2021 End: 09-28-[address] Aissatou Hu Work Phone: [facility] Start: 08-05-2021 End: 08-05-[address] Aissatou Hu Work Phone: [facility] [place] Start: 07-16-2021 End: 07-16-[address] Aissatou Hu Work Phone: [facility]-Radiology, [facility] Start: 07-13-2021 End: 07-13-[address] [facility] Start: 07-06-2021 End: 07-06-[address] A[facility]atou Hu [facility] [place] Procedures Date Procedure Procedure Detail Performing Clinician Start: 10-19-2021 Screening mammography D rLara Hu Work Phone: Start: 07-16-[address] Yana Hu Work Phone: Start: 11-02-2016 End: 11-02-2016 Urinalysis Raul COTTRELL [...] Treatment Date Care Activity Detail Author Start: 11-01-2021 Colonoscopy w/biopsy single/multiple COLONOSCOPY AND BIOPSY [facility] Work Phone: Start: 11-01-2021 Egd insert guide wir e dilator passage esophagus EGD GUIDE WIRE INSERTION [facility] Work Phone: Start: 11-01-2021 Egd transoral biopsy single/multiple EGD BIOPSY SINGLE/MULTIPLE [facility] Work Phone: Start: 11-01-2021 Patient discharge [facility] Work Phone: Start: 11-02-2016 End: 11-02-2016 Appointment Appointment [facility] Work Phone: Start: 11-02-2016 End: 11-02-2016 Streptococcus.beta-hemol ytic [Presence] in Throat by Organism specific culture *Culture, R/O Strep A Swab [facility] Work Phone: Start: 10-08-2016 End: 10-08-2016 Appointment Appointment [facility] Work Phone: Patient Education [facility] Work Phone: Patient referral [facility] Work Phone: Immunizations Immunization Date Immunization Notes Care Provider [facility] 02-26-2019 pneumococcal conjuga te vaccine, [address] Aissatou Hu Work Phone: [facility] Work Phone: 02-26-2019 pneumococcal vaccine , unspecified formulation Dr. Aissatou Hu Work Phone: [facility] Work Phone: 02-26-2019 Fluad 2019-20 65yr up(PF)45 mcg(15 mcgx3)/0.5 mL intramuscular syringe (flu vac Dr. Aissatou Hu Work Phone: [facility] Work Phone: Payers Date Payer Category Payer Medicare [id number] 2023 Self-pay [id number] 2016 Unknown [id number] 2006 Unknown [id number] 2006 Unknown [id number] Unknown [id number] 2.16.8 40.1.309070.3.579.2.462 Unknown [id number] 2.16.8 40.1.510334.3.579.2.462 Unknown [id number] 2.16.8 40.1.863145.3.579.2.462 Unknown [id number] 2.16.8 40.1.341891.3.579.2.462 Unknown [id number] 2.16.8 40.1.976112.3.579.2.462 Unknown [id number] 2.16.8 40.1.159435.3.579.2.462 Unknown [id number] 2.16.8 40.1.382936.3.579.2.462 Unknown [id number] 2.16.8 40.1.938397.3.579.2.462 Unknown [id number] 2.16.8 40.1.046058.3.579.2.462 Unknown [id number] 2.16.8 40.1.874095.3.579.2.462 Unknown [id number] 2.16.8 40.1.124723.3.579.2.462 Unknown [id number] 2.16.8 40.1.956390.3.579.2.462 Unknown [id number] 2.16.8 40.1.051611.3.579.2.462 Unknown [id number] 2.16.8 40.1.995137.3.579.2.462 Unknown [id number] 2.16.8 40.1.364975.3.579.2.462 Unknown [id number] 2.16.8 40.1.717651.3.579.2.462 Unknown [id number] 2.16.8 40.1.571063.3.579.2.462 Unknown [id number] 2.16.8 40.1.486962.3.579.2.462 Unknown [id number] 2.16.8 40.1.596323.3.579.2.462 Unknown [id number] 2.16.8 40.1.174932.3.579.2.462 Unknown [id number] 2.16.8 40.1.406275.3.579.2.462 Unknown [id number] 2.16.8 40.1.817291.3.579.2.462 Unknown [id number] 2.16.8 40.1.625996.3.579.2.462 Unknown [id number] 2.16.8 40.1.303161.3.579.2.462 Unknown [id number] 2.16.8 40.1.423958.3.579.2.462 Social History Date Type Detail Facility Start: 07-06-2021 End: 11-04-2021 Tobacco smoking status NHIS Unknown if ever smoked [facility] Work Phone: Start: 1955 Sex Assigned At Female [facility] Work Phone: Goals Date Patient Goal Desired Activity /State Mental Status Date Assessment Result Facility 11-01-2021 Cognitive function Voice/Name [facility] Work Phone: Chief complaint+Reason for visit Narrative Note Date & Type Note Facility Chief complaint+Reason for v isit Narrative Reason for Visit COVID-19 [facility] Work Phone: Evaluation note Note Date & Type Note Facility Evaluation note Diagnosis Onset Date Arm pain chronic Difficulty swallowing chroni c Eye pain chronic Hypertension [facility] Work Phone: Evaluation note Note Date & Type Note Facility Evaluation note Diagnosis Onset Date Arm pain chronic Difficulty swallowing chroni c Eye pain chronic Hypertension chronic Difficulty swallowing chroni c Depression with anxiety 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 Difficulty swallowing chroni c Hypertension [facility] Work Phone: Evaluation note Note Date & Type Note Facility Evaluation note Diagnosis Onset Date COVID-19 acute [facility] Work Phone: Chief Complaint and Reason for Visit 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, 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 Reason for Visit Arm pain Difficulty swallowing Eye pain Hypertension 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, 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 Reason for Visit Arm pain Difficulty swallowing Eye pain Hypertension 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, 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 Dysphagia 3 M FU SCREENING Reason for Visit Arm pain Difficulty swallowing Eye pain Hypertension Difficulty swallowing Depression with anxiety Difficulty swallowing Hypertension Family History No Family History Records Found Relationship Condition Age at Onset Recorded Date/T javier Not Specified Anxiety Unknown Autoimmune disease Unknown Depression Unknown father Alcoholism Unknown Malignant neoplasm of colon Unknown Cardiac disease Unknown Hypertension Unknown High blood cholesterol Unknown grandfather Cardiac disease Unknown Myocardial infarction Unknown sister Schizophrenia Unknown Mental disorder Unknown Unknown Advance Directives No Advanced Directives Records Found Advance Directive Response Recorded Date/ Time Advance Directives Yes November 16, 5:29pm Living Will Yes November 16, 2020 5:29pm Power of Fibre [place] No November 16 5:29pm Advance Directive Response Recorded Date/ Time Advance Directives Yes November 16 5:29pm Living Will Yes October 28, 2021 1:27pm Power of Fibre [place] No October 28 1:27pm Summary Purpose Additional Source Comments Goals (unrecognized section and content) Goals may be documented in a n alternate sectionGoals may be documented in an alternate sectionGoals may be documented in an alternate sectionGoals may be documented in an alternate sectionGoals may be documented in an alternate section INFORMATION SOURCE (unrecogn ized section and content) DATE CREATED AUTHOR 09/28/2024 [facility] FOR RECORDS PERTAINING TO PATIENTS WHO ARE [...] BE BASED ON THE PRIMARY CLINICAL RECORDS. [employer] [facility]. provides no warranty or guarantee of the accuracy or completeness of information in this document.
[2024-11-06 01:54] LABS: Hematocrit 43.5 % (37-47); Hemoglobin 14.1 g/dL (12.0-15.0); Immature Granulocytes Count 0.040 X10^3/uL (0.0-0.0); Mean Corp Hgb Conc 32.4 g/dL (32-36); Mean Corpuscular Volume 92.9 fL (81-99); Mean Platelet Vol. 10.3 fl (6.2-12.0); NRBC Flagged by Analyzer 0 % (0-5); Platelet Count 365 K/mm3 (150-450); RBC Distribution Width CV 13.8 % (11.6-14.6); RBC Distribution Width SD 46.6 fl (35.1-43.9); Red Blood Count 4.68 M/mm3 (4.2-5.4); White Blood Count 9.1 K/mm3 (4.4-11.0)
[2024-11-06 02:06] LABS: Anion Gap 13 (5-15); BUN 18 mg/dL (4-19); BUN/Creat Ratio 15.8 RATIO (10-20); Calcium,Total 9.6 mg/dL (7.6-11.0); Carbon Dioxide 21.8 mmol/L (21.0-32.0); Chloride 106 mmol/L (98-108); Estimated Creatinine Clearance 44.90 ml/min (50-250); Glucose 155 mg/dL (70-99); Potassium 3.5 mmol/L (3.3-5.1)
[2024-11-06 02:14] LABS: Mucous, Urine 0 SEEN /hpf (<or=2+)
[2024-11-06 02:16] LABS: Color, Urine Amber (Yellow); Glucose, Dipstick 100 mg/dl (Normal); Ketone-Dipstick Negative (Negative); Leukocyte Esterase-Dipstick 25 /ul (Negative); Nitrite-Dipstick Positive (Negative); Occult Blood-Urine 25 /ul (Negative); Protein-Dipstick 30 mg/dl (Negative); Specific Gravity, Urine 1.020 (1.002-1.030)
[2024-11-06 02:21] LABS: Urine Bilirubin Dipstick 6 mg/dL (Negative)
[2024-11-06 02:23] LABS: Red Blood Cells-Urine 0-5 SEEN /hpf (0-5); Squamous Epithelial Cells - UA 0-5 SEEN /hpf (5-10)
[2024-11-06 02:24] VITALS: BP 168/85; PULSE 81; RESP 16; TEMP 36.7; O2SAT 94
[2024-11-06 03:00] VITALS: BP 135/78; PULSE 78; RESP 18; TEMP 36.6; O2SAT 93
== END 2024-11-06 03:33 | disposition home or self-care (01) ==
PROVIDERS: Emergency Provider Emergency Medicine; PCP Internal Medicine; Visit Provider Emergency Medicine
DX: N23 Unspecified renal colic (principal); I10 Essential (primary) hypertension; Z90.710 Acquired absence of both cervix and uterus; E78.00 Pure hypercholesterolemia, unspecified; N39.0 Urinary tract infection, site not specified; Z90.49 Acquired absence of other specified parts of digestive tract; Z79.899 Other long term (current) drug therapy; F41.9 Anxiety disorder, unspecified; K21.9 Gastro-esophageal reflux disease without esophagitis; F32.A Depression, unspecified
CPT/HCPCS: 74176; 80048; 81001; 85025; 87086; 87088; 96365; 96375; 99283; A4216; J2405

== ENCOUNTER → 2024-12-03 | Outpatient (CLI) | payer MEDICARE, OTHER, SELFPAY ==
[2024-12-03 15:26] LABS: Hematocrit 44.0 % (37-47); Hemoglobin 14.2 g/dL (12.0-15.0); Immature Granulocytes Count 0.030 X10^3/uL (0.0-0.0); Mean Corp Hgb Conc 32.3 g/dL (32-36); Mean Corpuscular Volume 92.2 fL (81-99); Mean Platelet Vol. 11.2 fl (6.2-12.0); NRBC Flagged by Analyzer 0 % (0-5); Platelet Count 358 K/mm3 (150-450); RBC Distribution Width CV 13.6 % (11.6-14.6); RBC Distribution Width SD 46.5 fl (35.1-43.9); Red Blood Count 4.77 M/mm3 (4.2-5.4); White Blood Count 6.5 K/mm3 (4.4-11.0)
[2024-12-03 15:46] LABS: CRP < 3.00 mg/L (0.0-3.0); Uric Acid 3.3 mg/dL (2.6-6.0)
== END | disposition home or self-care (01) ==
PROVIDERS: PCP Internal Medicine
DX: M25.562 Pain in left knee (principal)
CPT/HCPCS: 36415; 84550; 85025; 85652; 86140

== ENCOUNTER → 2024-12-23 | Outpatient (CLI) | payer MEDICARE, OTHER, SELFPAY ==
[2024-12-23 09:00] LABS: Mucous, Urine 0 SEEN /hpf (<or=2+); Red Blood Cells-Urine 0 SEEN /hpf (0-5)
[2024-12-23 12:06] LABS: Color, Urine Yellow (Yellow); Glucose, Dipstick Normal (Normal); Ketone-Dipstick Negative (Negative); Leukocyte Esterase-Dipstick 25 /ul (Negative); Nitrite-Dipstick Negative (Negative); Occult Blood-Urine Negative /ul (Negative); Protein-Dipstick 15 mg/dl (Negative); Specific Gravity, Urine 1.020 (1.002-1.030); Urine Bilirubin Dipstick Negative (Negative)
[2024-12-23 12:26] LABS: Squamous Epithelial Cells - UA 0-5 SEEN /hpf (5-10)
[2024-12-23 12:48] LABS: Creatinine, Urine (random) 140.00 mg/dL (28.00-217.00); Microalbumin,Random Urine 20.7 mg/L (<20 mg/L)
[2024-12-23 12:52] LABS: Anion Gap 10 (5-15); BUN 25 mg/dL (4-19); BUN/Creat Ratio 26.3 RATIO (10-20); Calcium,Total 9.0 mg/dL (7.6-11.0); Carbon Dioxide 22.9 mmol/L (21.0-32.0); Chloride 108 mmol/L (98-108); Glucose 108 mg/dL (70-99); Potassium 4.4 mmol/L (3.3-5.1)
== END | disposition home or self-care (01) ==
LOC: BIMLAB 09:00
PROVIDERS: PCP Internal Medicine; Referring Provider Internal Medicine; Visit Provider Internal Medicine
DX: R35.0 Frequency of micturition (principal); R80.9 Proteinuria, unspecified; I10 Essential (primary) hypertension
CPT/HCPCS: 36415; 80048; 81001; 82043; 82570